=== PATIENT | female | born 1990 | race Caucasian/White ===

== ENCOUNTER 2017-04-30 12:12 | Emergency (ER) | payer BC, SELFPAY ==
[2017-04-30 12:41] VITALS: BP 139/93; PULSE 91; RESP 20; TEMP 36.1; O2SAT 97; BMI 36.6
--- NOTE | 2017-04-30 14:04 | HMH.EDUTC ---
[facility] [place]ression: Migraine Qualifiers: Migraine type: without aura Status migrainosus presence: without status migrainosus Intractability: not intractable Qualified Code(s): G43.009 - Migraine without aura, not intractable, without status migrainosus Disposition: Home, Self-Care Condition on Discharge: Good Instructions: DI for Migraine, Promethazine, Ketorolac Injection Additional Instructions: Flu test negative. You had the requested toradol and phenergan injections. Lots of water Rest like typical but if doesn't continue to improve like you report it typically does, be sure to follow up Follow up if not resolved, worsens or reoccurs or becomes not your typical migraine Referrals: Cindy Levy APRN [Primary Care Provider] - (As needed.) Time of Disposition: 14:27 Medical Decision Making Vital Signs: 04/30/17 12:41 04/30/17 14:33 Temperature 97.0 F L 97.0 F L Temperature Source Temporal Artery Scan Pulse Rate 85 Pulse Rate [Radial] 91 H Respiratory Rate 20 16 Blood Pressure 139/93 Blood Pressure [Left Arm] 139/93 Blood Pressure Mean [Left Arm] 108 Blood Pressure Source [Left Arm] Automatic Cuff Blood Pressure Position [Left Arm] Sitting 02 Sat by Pulse Oximetry 97 Oxygen Delivery Method Room Air - Lab Data Lab results reviewed: Yes: I reviewed the patient's lab results. Lab Results 04/30/17 14:06: Influenza Type A Ag Negative, Influenza Type B Ag Negative influenza A neg Influenza B neg Orders (Tests/Meds): ED MEDICATIONS Discontinued Medications Generic Name Dose Route Start Last Admin Trade Name Shadia PRN Reason Stop Dose Admin Ketorolac Tromethamine 60 mg 04/30/17 14:05 04/30/17 14:23 Toradol 60mg/2ml Vial IM 04/30/17 14:06 60 mg ONCE ONE Administration Promethazine HCl 25 mg 04/30/17 14:05 04/30/17 14:23 Phenergan 25mg/Ml 1ml Vial IM 04/30/17 14:06 25 mg ONCE ONE Administration Sodium Chloride 25 ml 04/30/17 14:05 04/30/17 14:24 Sod Chloride 0.9% 25ml Bag IV 04/30/17 14:06 Not Given ONCE ONE - Pito Inquiry Pt receiving controlled substance: No - Reevaluation(s) Time: 14:20 Reevaluation #1: Pt reports medications are starting to work . Already experiencing some relief. She is ready to go home and rest. Reports this typically helps and migraine fades. [facility] [place] - General Stated complaint: Migraine vomiting Time Seen by Provider: 04/30/17 13:50 Mode of Arrival: Ambulatory Source of Information: Patient Limitations: No Limitations Description of Symptoms (Recalled from Triage Doc. by RN): Pt C/O migraine since 399 today accompanied with N/V and light sensitivity HEENT Symptoms (Recalled from RN notes): Yes (ESCOBAR) Resp Symptoms (Recalled from RN notes): No Skin Symptoms (Recalled from RN notes): No MS Symptoms (Recalled from RN notes): No Functional Status (Recalled from RN notes): NA - History of Present Illness Provider Complaint: c/o a typical migraine starting at 4am. Here for toradol and promethazine injections. No new symptoms. 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 No treatment because vomiting too much. When this happens I get toradol and phenergan injection . hx of migraines treated with toradol, fioricet and promethazine when I can keep it down - Related Data Allergies Allergy/AdvReac Type Severity Reaction Status Date / Time oseltamivir [From TAMIFLU] Allergy Unknown NA-NAUSEA/V Verified 04/30/17 12:46 OMITING sumatriptan [From IMITREX] Allergy Unknown NA-HALLUCIN Verified 04/30/17 12:46 ATIONS - Worker's Comp Is this a Worker's Comp case?: No [facility] History I have reviewed the patient's past medical history: Yes Medical History: Reports:: Migraine Denies:: Diabetes Mellitus Type 2, Hypertension Laterality Cases: Bilateral: Tonsillectomy - *Social History Alcohol Intake: never - Psychiatric History Expresses thoughts of escobar
[2017-04-30 14:33] VITALS: BP 139/93; PULSE 85; RESP 16; TEMP 36.1; O2SAT 97
[2017-04-30 14:40] LABS: UTC Influenza A Antigen Negative (Negative); UTC Influenza B Antigen Negative (Negative)
[2017-05-03 20:37] LABS: UTC Influenza A Antigen Negative (Negative); UTC Influenza B Antigen Negative (Negative)
== END 2017-04-30 14:38 | disposition home or self-care (01) ==
PROVIDERS: Emergency Provider Nurse Practitioner Family; PCP Nurse Practitioner
DX: G43.009 Migraine without aura, not intractable, without status migrainosus (principal)
CPT/HCPCS: 87804; 96372; 99201

== ENCOUNTER → 2019-10-30 | Outpatient (CLI) | payer OTHER, SELFPAY ==
[2019-10-30 03:44] LABS: Coronavirus 19 IgG Antibody Negative (Negative); Coronavirus 19 IgM Antibody Negative (Negative)
== END ==
PROVIDERS: PCP Family Medicine; Visit Provider Family Medicine
DX: Z20.828 Contact with and (suspected) exposure to other viral communicable diseases (principal)
CPT/HCPCS: 86328

== ENCOUNTER → 2019-11-23 08:22 | Outpatient (CLI) | payer OTHER, SELFPAY ==
[2019-11-24 13:12] LABS: Covid-19 Nasal PCR Sendout Lex Not Detected
== END ==
PROVIDERS: PCP Family Medicine; Visit Provider Internal Medicine Adolescent Medicine
DX: Z03.818 Encounter for observation for suspected exposure to other biological agents ruled out (principal)
CPT/HCPCS: U0004

== ENCOUNTER → 2019-12-01 05:50 | Outpatient (CLI) | payer OTHER, SELFPAY ==
[2019-12-02 14:48] LABS: Covid-19 Nasal PCR Sendout Lex Not Detected
== END ==
PROVIDERS: PCP Family Medicine; Visit Provider Nurse Practitioner
DX: Z03.818 Encounter for observation for suspected exposure to other biological agents ruled out (principal)
CPT/HCPCS: U0004

== ENCOUNTER → 2020-02-01 13:37 | Outpatient (CLI) | payer OTHER, SELFPAY ==
--- NOTE | 2020-02-01 13:44 | MM_ITS ---
PROCEDURE: MM DIG MAMM BI DX W/CAD Digital Breast Tomosynthesis Included CLINICAL INDICATION: LUMP IN FEMALE BREAST There is a history of breast cancer in the patient's paternal grandmother and maternal grandmother and maternal aunt. There has been a previous biopsy right breast for benign disease. COMPARISON: MG BC-MAMM CLIP PLACEMENT OR VERIFI from 10/24/2014 MG BC-BREAST SPEC (NL/PATH) from 10/24/2014 outside film TECHNIQUE: Standard CC and MLO images and 3D Tomosynthesis was obtained. R2 CAD reviewed. FINDINGS: Scattered fibroglandular densities are seen in both breast. Slightly asymmetric glandular elements are seen upper outer quadrant right breast at the biopsy site. Preet images are most helpful appearing to confirm post biopsy scarring there is no new or suspicious lesion in either breast and no suspicious microcalcifications. IMPRESSION: Fibrofatty parenchyma with no suspicious lesions seen BI-RAD Category: 1 Negative FOLLOW-UP: 1YR 1 Year Follow-up (A letter has been sent to the patient regarding results of the study.) Dictated by: Dr. Jerman Delacruz MD 02/09/2020 08:48 Dr. Jerman Delacruz MD in [place] 02/09/2020 08:48
--- NOTE | 2020-02-01 13:44 | US_ITS ---
PROCEDURE: US THYROID CLINICAL INDICATION: HYPOTHYROIDISM COMPARISON: US THY US THYROID from 05/28/2016 FINDINGS: Right lobe: 2.3cm x 4.5cm x 1.8cm Left lobe: 2.0cm x 4.5cm x 1.5cm Isthmus: Thickened at 5 mm. Additional findings: There is bilateral heterogeneous echogenicity of the thyroid. A 9 mm hypoechoic nodules present in the upper pole on the left unchanged IMPRESSION: Overall no change in the mildly enlarged thyroid with heterogeneous echogenicity and a stable nodule in the left lobe Dictated by: Cory Bob MD 02/02/2020 08:11 Cory Bob MD in [place] 02/02/2020 08:11
== END ==
PROVIDERS: PCP Family Medicine; Visit Provider Nurse Practitioner
DX: N63.0 Unspecified lump in unspecified breast (principal); E03.9 Hypothyroidism, unspecified
CPT/HCPCS: 76536; 77062; 77066; G0279

== ENCOUNTER → 2020-02-14 00:19 | Outpatient (CLI) | payer OTHER, SELFPAY ==
[2020-02-14 01:41] LABS: Coronavirus 19 IgG Antibody Negative (Negative); Coronavirus 19 IgM Antibody Negative (Negative)
== END ==
PROVIDERS: PCP Family Medicine; Visit Provider Emergency Medicine
DX: Z03.818 Encounter for observation for suspected exposure to other biological agents ruled out (principal)
CPT/HCPCS: 86328

== ENCOUNTER 2020-05-10 19:51 | Outpatient (CLI) | payer BC, SELFPAY ==
[2020-05-10 20:01] VITALS: BMI 40.2
== END 2020-05-10 20:04 | disposition home or self-care (01) ==
PROVIDERS: PCP Family Medicine; Visit Provider Nurse Practitioner
DX: M54.5 Low back pain (principal)

== ENCOUNTER → 2020-06-08 20:00 | Outpatient (CLI) | payer BC, SELFPAY | PROVIDERS: PCP Nurse Practitioner Family; Visit Provider Nurse Practitioner Family | DX: N89.8 Other specified noninflammatory disorders of vagina (principal) ==

== ENCOUNTER 2020-06-25 14:07 | Outpatient (CLI) | payer BC, SELFPAY ==
[2020-06-25 14:35] VITALS: BMI 27.4
== END 2020-06-25 14:41 | disposition home or self-care (01) ==
LOC: INF 14:08 → UTC.OUT 14:09
PROVIDERS: PCP Emergency Medicine; Visit Provider Nurse Practitioner
DX: G43.909 Migraine, unspecified, not intractable, without status migrainosus (principal)
CPT/HCPCS: 96372

== ENCOUNTER 2020-07-05 14:25 | Outpatient (CLI) | payer BC, SELFPAY | END 2020-07-05 15:22 | disposition home or self-care (01) | PROVIDERS: PCP Emergency Medicine; Visit Provider Family Medicine | DX: F41.9 Anxiety disorder, unspecified (principal) | CPT/HCPCS: 96372 ==

== ENCOUNTER → 2020-07-16 19:06 | Outpatient (CLI) | payer OTHER, SELFPAY | PROVIDERS: PCP Emergency Medicine; Visit Provider Nurse Practitioner Family | DX: Z20.822 Contact with and (suspected) exposure to COVID-19 (principal) | CPT/HCPCS: U0003 ==

== ENCOUNTER → 2020-10-03 08:55 | Outpatient (CLI) | payer OTHER, SELFPAY ==
[2020-10-03 09:22] LABS: Adenovirus,PCR Not Detected (NotDetected); Bordetella Pertussis Not Detected (NotDetected); Chlamydophila Pneumoniae, PCR Not Detected (NotDetected); Coronavirus 19, PCR Not Detected (NotDetected); Coronavirus 229E Not Detected (NotDetected); Coronavirus NL63 Not Detected (NotDetected); Coronavirus OC43 Not Detected (NotDetected); Coronovirus HKU1,PCR Not Detected (NotDetected); Human Metapneumovirus Not Detected (NotDetected); Influenza A, PCR Not Detected (NotDetected); Influenza AH1, 2009 Not Detected (NotDetected); Influenza AH1, PCR Not Detected (NotDetected); Influenza AH3,PCR Not Detected (NotDetected); Influenza B, PCR Not Detected (NotDetected); Mycoplasma Pneumoniae, PCR Not Detected (NotDetected); Parainfluenza 1, PCR Not Detected (NotDetected); Parainfluenza 2, PCR Not Detected (NotDetected); Parainfluenza 3, PCR Not Detected (NotDetected); Parainfluenza 4, PCR Not Detected (NotDetected); Respiratory Syncytial Virus Not Detected (NotDetected); Rhinovirus/Enterovirus Not Detected (NotDetected)
== END ==
PROVIDERS: Visit Provider Nurse Practitioner Family
DX: Z11.52 Encounter for screening for COVID-19 (principal)
CPT/HCPCS: 87581; 87633; 87798

== ENCOUNTER → 2020-11-06 12:23 | Outpatient (CLI) | payer OTHER, SELFPAY ==
[2020-11-06 12:43] LABS: Adenovirus,PCR Not Detected (NotDetected); Bordetella Pertussis Not Detected (NotDetected); Chlamydophila Pneumoniae, PCR Not Detected (NotDetected); Coronavirus 19, PCR Not Detected (NotDetected); Coronavirus 229E Not Detected (NotDetected); Coronavirus NL63 Not Detected (NotDetected); Coronavirus OC43 Not Detected (NotDetected); Coronovirus HKU1,PCR Not Detected (NotDetected); Human Metapneumovirus Not Detected (NotDetected); Influenza A, PCR Not Detected (NotDetected); Influenza AH1, 2009 Not Detected (NotDetected); Influenza AH1, PCR Not Detected (NotDetected); Influenza AH3,PCR Not Detected (NotDetected); Influenza B, PCR Not Detected (NotDetected); Mycoplasma Pneumoniae, PCR Not Detected (NotDetected); Parainfluenza 1, PCR Not Detected (NotDetected); Parainfluenza 2, PCR Not Detected (NotDetected); Parainfluenza 3, PCR Not Detected (NotDetected); Parainfluenza 4, PCR Not Detected (NotDetected); Respiratory Syncytial Virus Not Detected (NotDetected); Rhinovirus/Enterovirus Not Detected (NotDetected)
== END ==
PROVIDERS: PCP Emergency Medicine; Visit Provider Nurse Practitioner
DX: Z20.822 Contact with and (suspected) exposure to COVID-19 (principal)
CPT/HCPCS: 87581; 87633; 87798

== ENCOUNTER → 2020-11-09 10:24 | Outpatient (CLI) | payer OTHER, SELFPAY ==
[2020-12-19 10:30] VITALS: BMI 39.3
== END ==
PROVIDERS: PCP Emergency Medicine; Visit Provider Nurse Practitioner Family
DX: S05.00XA Injury of conjunctiva and corneal abrasion without foreign body, unspecified eye, initial encounter (principal)

== ENCOUNTER → 2021-01-13 18:47 | Outpatient (CLI) | payer OTHER, SELFPAY ==
[2021-01-13 20:11] LABS: Basophils % 0.4 % (0.1-2.0); Eosinophils # 0.2 K/mm3 (0.0-0.4); Eosinophils % 2.3 % (0.1-12.0); Hematocrit 41.4 % (37.0-47.0); Lymphocytes # 2.9 K/mm3 (0.7-4.5); Lymphocytes % 33.5 % (10-50); Mean Corpuscular HGB Conc 31.3 g/dL (31.8-35.4); Mean Corpuscular Volume 86.2 fl (81-99); Mean Platelet Volume 8.6 fl (7.4-10.4); Monocytes # 0.6 K/mm3 (0.1-1.0); Monocytes % 6.6 % (1.7-9.3); Neutrophils % 57.2 % (37.0-80.0); Platelet Count 360 K/mm3 (142-424); Red Blood Count 4.81 M/mm3 (4.20-5.40); Red Cell Distribution Width 14.8 % (11.5-17.5); White Blood Count 8.7 K/mm3 (4.8-10.8)
[2021-01-13 20:33] LABS: Alanine Aminotransferase 31 U/L (12-78); Albumin Level 4.3 g/dl (3.5-5.0); Albumin/Globulin Ratio 1.4 (1.1-1.8); Alkaline Phosphatase 100 U/L (38-126); Anion Gap 13.5 mEq/L (5-15); Aspartate Amino Transferase 31 U/L (14-36); Bilirubin,Total 0.4 mg/dl (0.2-1.3); Blood Urea Nitrogen 13 mg/dl (7-17); Calcium 9.7 mg/dl (8.4-10.2); Carbon Dioxide 25 mmol/L (22.0-30.0); Chloride 103 mmol/L (98-107); Chol/HDL Ratio 4.9 (1-3.5); Cholesterol 258 mg/dl (140-200); Estimated Glomerular Filt Rate 74 ml/min (>60); GFR (African American) 90 ML/MIN (>60); Glucose 100 mg/dl (74-100); HDL Cholesterol 53 mg/dl (40-60); Potassium 4.5 mmoL/L (3.5-5.1); Sodium 137 mmol/L (136-145); Total Protein,Serum 7.3 g/dl (6.3-8.2); Triglycerides 267 mg/dl (30-150); VLDL Cholesterol 53 mg/dL (0-40)
[2021-01-13 20:43] LABS: Direct LDL Cholesterol 171.12 mg/dL (100-129)
[2021-01-13 20:49] LABS: 25-OH Vitamin D, Total 34.5 ng/mL (30-100)
[2021-01-13 20:51] LABS: T4 (Thyroxine) 10.1 ug/dl (5.53-11.0)
== END ==
PROVIDERS: Visit Provider Emergency Medicine
DX: G62.9 Polyneuropathy, unspecified (principal); E03.9 Hypothyroidism, unspecified; E66.9 Obesity, unspecified; Z68.38 Body mass index [BMI] 38.0-38.9, adult
CPT/HCPCS: 80053; 80061; 82306; 84436; 84443; 85025

== ENCOUNTER → 2021-01-19 12:58 | Outpatient (CLI) | payer OTHER, SELFPAY ==
[2021-01-19 13:20] LABS: Coronavirus 19, PCR Not Detected (NotDetected); Influenza A, PCR Not Detected (NotDetected); Influenza B, PCR Not Detected (NotDetected)
== END ==
PROVIDERS: PCP Emergency Medicine; Visit Provider Nurse Practitioner Family
DX: Z20.822 Contact with and (suspected) exposure to COVID-19 (principal)
CPT/HCPCS: C9803; U0003; U0005

== ENCOUNTER → 2021-02-01 16:02 | Outpatient (CLI) | payer OTHER, SELFPAY ==
[2021-02-01 16:21] VITALS: BMI 32.4
== END ==
PROVIDERS: PCP Emergency Medicine; Visit Provider Nurse Practitioner Family
DX: J06.9 Acute upper respiratory infection, unspecified (principal); R51.9 Headache, unspecified

== ENCOUNTER → 2021-02-06 10:26 | Outpatient (CLI) | payer OTHER, SELFPAY ==
[2021-02-06 14:07] LABS: Hemoglobin A1C 5.5 % (4.0-6.0)
== END ==
PROVIDERS: Visit Provider Nurse Practitioner Family
DX: Z79.899 Other long term (current) drug therapy (principal)
CPT/HCPCS: 83036

== ENCOUNTER 2021-02-13 09:16 | Emergency (ER) | payer OTHER, SELFPAY ==
[2021-02-13 09:20] VITALS: BP 125/78; PULSE 88; RESP 19; TEMP 36.9; O2SAT 98; BMI 39.3
[2021-02-13 09:52] LABS: UTC Pregnancy Test, Urine Negative (Negative)
[2021-02-13 09:52] LABS: UTC Strep Screen (Rapid) Negative (Negative)
--- NOTE | 2021-02-13 09:53 | HMH.EDUTC ---
[facility] [place] Clinical Impression: Migraine Qualifiers: Migraine type: unspecified Status migrainosus presence: without status migrainosus Intractability: not intractable Qualified Code(s): G43.909 - Migraine, unspecified, not intractable, without status migrainosus Diarrhea Qualifiers: Diarrhea type: unspecified type Qualified Code(s): R19.7 - Diarrhea, unspecified Disposition: Home, Self-Care Condition on Discharge: Good Instructions: Migraine -- Adult, Diarrhea, DI for Nausea -- Adult Additional Instructions: Drink extra fluids with and between meals. If you have difficulty drinking, try very small amounts of water or suck on ice chips. ? Avoid fruit juices, as these do not replace minerals and can actually increase diarrhea. ? Children and adults can use sports drinks to replenish electrolytes. Younger children and infants should use products formulated for children, like oral rehydration solutions. ? Eat food in small amounts and let your stomach recover. ? Get lots of rest. You may feel tired or weak. ? No greasy or fried foods for the next 24-48 hours BRAT diet Bananas Rice Apples and [place] ? Make sure to drink plenty of liquids ? Return if needed ? Straight to ER if any life threatening symptoms ? Nausea medication as you was prescribed ?? Follow up with family doctor in the next 48-72 hours if no improvement or any worsening of symptoms Referrals: Corby Astudillo MD [Primary Care Provider] - As needed Time of Disposition: 11:25 Medical Decision Making - Pito Inquiry Pt receiving controlled substance: No Pito was queried for this patient: No Vital Signs: 02/13/21 09:20 02/13/21 11:28 Temperature 98.5 F 98.5 F Temperature Source Oral Pulse Rate 88 Pulse Rate [Right Brachial] 88 Respiratory Rate 19 19 Blood Pressure 125/78 Blood Pressure [Right Arm] 125/78 Blood Pressure Mean [Right Arm] 93 Blood Pressure Source [Right Arm] Automatic Cuff Blood Pressure Position [Right Arm] Sitting 02 Sat by Pulse Oximetry 98 Oxygen Delivery Method Room Air - Lab Data Lab results reviewed: Yes: I reviewed the patient's lab results. Lab Results 02/13/21 09:36: [facility]st Clinic Negative 02/13/21 09:37: SARS-CoV-2 (PCR) Not detected, Influenza A Untype (PCR) Not detected, Influenza Type B (PCR) Not detected 02/13/21 09:45: Strep Scn Rapid Clinic Negative Orders (Tests/Meds): ED MEDICATIONS Discontinued Medications Generic Name Dose Route Start Last Admin Trade Name Shadia PRN Reason Stop Dose Admin Sodium Chloride 1,000 mls @ 999 mls/hr 02/13/21 10:15 02/13/21 10:16 Sod Chlor 0.9% 1000ml Bag IV 02/13/21 11:15 999 mls/hr .Q1H1M LESLIE Administration Ketorolac Tromethamine 30 mg 02/13/21 09:58 02/13/21 10:15 Ketorolac 30mg/Ml Vial IV 02/13/21 09:59 30 mg ONCE ONE Administration Promethazine HCl 12.5 mg 02/13/21 09:58 02/13/21 10:15 Promethazine Hcl 25mg/Ml 1ml Vial IV 02/13/21 09:59 12.5 mg ONCE ONE Administration Sodium Chloride 25 ml 02/13/21 09:58 02/13/21 10:16 Sodium Chloride 0.9% 25ml Bag IV 02/13/21 09:59 25 ml ONCE ONE Administration ORDERS Category Date Time Status Strep Screen Confirmation Stat Micro 02/13/21 09:45 Received Medical Decision Narrative: Patient states that migraine is now gone after medication and nausea now improved no vomiting or diarrhea since arrival patient report feels much better after fluids will dc patient home [facility] [place] - General Stated complaint: vomiting, headache Time Seen by Provider: 02/13/21 09:53 Mode of Arrival: Ambulatory Source of Information: Patient Limitations: No Limitations Description of Symptoms (Recalled from Triage Doc. by RN): PATIENT C/O MIGRAINE, NAUSEA, VOMITING, DIARRHEA, AND SINUS DRAINAGE/CONGESTION HEENT Symptoms (Recalled from RN notes): Yes Resp Symptoms (Recalled from RN notes): No Skin Symptoms (Recalled from RN notes): No MS Symptoms (Recalled from RN notes
[2021-02-13 09:57] LABS: Coronavirus 19, PCR Not Detected (NotDetected); Influenza A, PCR Not Detected (NotDetected); Influenza B, PCR Not Detected (NotDetected)
[2021-02-13 11:28] VITALS: BP 125/78; PULSE 88; RESP 19; TEMP 36.9; O2SAT 98
== END 2021-02-13 11:31 | disposition home or self-care (01) ==
PROVIDERS: Emergency Provider Nurse Practitioner; PCP Emergency Medicine
DX: G43.909 Migraine, unspecified, not intractable, without status migrainosus (principal); F41.8 Other specified anxiety disorders; Z87.891 Personal history of nicotine dependence
CPT/HCPCS: 81025; 87880; 96365; 96375; 99203; C9803; G0463; U0003; U0005

== ENCOUNTER → 2021-02-19 22:14 | Outpatient (CLI) | payer OTHER, SELFPAY ==
[2021-02-19 22:18] VITALS: BMI 39.3
== END ==
PROVIDERS: PCP Emergency Medicine; Visit Provider Nurse Practitioner Family
DX: J02.9 Acute pharyngitis, unspecified (principal)
CPT/HCPCS: J0561

== ENCOUNTER → 2021-03-11 23:59 | Outpatient (CLI) | payer OTHER, SELFPAY ==
[2021-03-12] LABS: Coronavirus 19, PCR Not Detected (NotDetected); Influenza A, PCR Not Detected (NotDetected); Influenza B, PCR Not Detected (NotDetected)
== END ==
PROVIDERS: Visit Provider Nurse Practitioner Family
DX: Z20.822 Contact with and (suspected) exposure to COVID-19 (principal)
CPT/HCPCS: C9803; U0003; U0005

== ENCOUNTER → 2021-03-29 09:15 | Outpatient (CLI) | payer OTHER, SELFPAY ==
[2021-03-29 09:21] VITALS: BMI 30.2
== END ==
PROVIDERS: PCP Emergency Medicine; Visit Provider Nurse Practitioner Family
DX: R51.9 Headache, unspecified (principal)

== ENCOUNTER → 2021-04-14 14:21 | Outpatient (CLI) | payer OTHER, SELFPAY ==
[2021-04-14 14:41] LABS: Adenovirus,PCR Not Detected (NotDetected); Coronavirus 229E Not Detected (NotDetected); Coronavirus NL63 Not Detected (NotDetected); Coronavirus OC43 Not Detected (NotDetected); Coronovirus HKU1,PCR Not Detected (NotDetected); Human Metapneumovirus Not Detected (NotDetected); Influenza A, PCR Not Detected (NotDetected); Influenza AH1, PCR Not Detected (NotDetected); Rhinovirus/Enterovirus Not Detected (NotDetected)
[2021-04-14 14:42] LABS: Bordetella Pertussis Not Detected (NotDetected); Chlamydophila Pneumoniae, PCR Not Detected (NotDetected); Coronavirus 19, PCR Not Detected (NotDetected); Influenza AH1, 2009 Not Detected (NotDetected); Influenza AH3,PCR Not Detected (NotDetected); Influenza B, PCR Not Detected (NotDetected); Mycoplasma Pneumoniae, PCR Not Detected (NotDetected); Parainfluenza 1, PCR Not Detected (NotDetected); Parainfluenza 2, PCR Not Detected (NotDetected); Parainfluenza 3, PCR Not Detected (NotDetected); Parainfluenza 4, PCR Not Detected (NotDetected); Respiratory Syncytial Virus Not Detected (NotDetected)
== END ==
PROVIDERS: PCP Emergency Medicine; Visit Provider Nurse Practitioner
DX: Z20.822 Contact with and (suspected) exposure to COVID-19 (principal)
CPT/HCPCS: 87581; 87632; 87798; C9803; U0003; U0005

== ENCOUNTER 2021-04-20 20:30 | Outpatient (CLI) | payer OTHER, SELFPAY | END 2021-04-20 20:45 | disposition home or self-care (01) | PROVIDERS: PCP Emergency Medicine; Visit Provider Nurse Practitioner | DX: J06.9 Acute upper respiratory infection, unspecified (principal) | CPT/HCPCS: 96372 ==

== ENCOUNTER → 2021-07-01 12:48 | Outpatient (CLI) | payer OTHER, SELFPAY | PROVIDERS: PCP Emergency Medicine; Visit Provider Nurse Practitioner Family | DX: J32.9 Chronic sinusitis, unspecified (principal) | CPT/HCPCS: J0696 ==

== ENCOUNTER → 2021-07-14 09:36 | Outpatient (CLI) | payer OTHER, SELFPAY ==
[2021-07-14 11:38] VITALS: BMI 31.8
== END ==
PROVIDERS: PCP Physician Assistant; Visit Provider Nurse Practitioner Family
DX: G62.9 Polyneuropathy, unspecified (principal)
CPT/HCPCS: J0696

== ENCOUNTER → 2021-07-18 18:43 | Outpatient (CLI) | payer OTHER, SELFPAY ==
--- NOTE | 2021-07-18 19:09 | XR_ITS ---
PROCEDURE INFORMATION: Exam: XR Left Elbow Exam date and time: 07/18/2021 7:02 PM Age: 30 years old Clinical indication: Pain; Elbow; Left; Additional info: Pain, bruising, tingling after a fall TECHNIQUE: Imaging protocol: XR Left elbow. Views: 3 or more views. COMPARISON: CR WRL3 WRIST-3 VIEWS-LT 06/04/2016 12:37 PM FINDINGS: Bones/joints: Normal. Soft tissues: Normal. IMPRESSION: No acute findings.
== END ==
PROVIDERS: PCP Emergency Medicine; Visit Provider Nurse Practitioner
DX: M25.522 Pain in left elbow (principal)
CPT/HCPCS: 73080

== ENCOUNTER → 2021-07-20 18:40 | Outpatient (CLI) | payer OTHER, SELFPAY ==
[2021-07-20 19:26] VITALS: BMI 37.5
== END ==
PROVIDERS: PCP Emergency Medicine; Visit Provider Nurse Practitioner Family
DX: J06.9 Acute upper respiratory infection, unspecified (principal)
CPT/HCPCS: J2405

== ENCOUNTER → 2021-11-12 13:24 | Outpatient (CLI) | payer BC, SELFPAY | PROVIDERS: PCP Physician Assistant; Visit Provider Physician Assistant | DX: N76.0 Acute vaginitis (principal); B96.89 Other specified bacterial agents as the cause of diseases classified elsewhere | CPT/HCPCS: 87086; 87088; 87186; 87210 ==

== ENCOUNTER 2022-06-04 10:17 | Observation (INO) | payer OTHER, SELFPAY ==
[2022-06-04] VITALS (31 sets, daily range): BP systolic 98–142; BP diastolic 48–90; PULSE 63–120; RESP 16–24; TEMP 36.4–43; O2SAT 93–98; BMI 43.0
--- NOTE | 2022-06-04 10:42 | CT_ITS ---
FINAL REPORT TECHNIQUE: After the administration of intravenous contrast, axial images were obtained through the abdomen and pelvis by computed tomography. This study was performed with technique to keep radiation doses as low as reasonably achievable, (ALARA). Individualized dose reduction techniques using automated exposure control or adjustment of the MA and/or KV according to the patient's size were employed. CLINICAL HISTORY: left lower abdominal pain COMPARISON: 07/13/2017 FINDINGS: Abdomen: The lung bases are clear. The liver is normal in size and attenuation. Two small cysts or hemangiomas are seen in the spleen which is otherwise unremarkable. The adrenals are normal. The pancreas is unremarkable. The kidneys enhance appropriately. The aorta is normal in caliber. There is no free fluid or adenopathy. There is a small umbilical hernia containing fat. Pelvis: The appendix is normal. There is a 9 cm left ovarian dermoid which previously measured 4.7 cm. Small follicles are noted in the right ovary. There is a small amount of pelvic free fluid which is likely physiologic or reactive. The urinary bladder is unremarkable. There is no adenopathy. IMPRESSION: 9 cm left ovarian dermoid, previously measured 4.7 cm. Small amount of pelvic free fluid, likely physiologic or reactive. Reviewed, Interpreted and Dictated by Jose Hernandez III, MD Transcribed by Chela Barr Authenticated and [facility]
[2022-06-04 10:46] LABS: Microscopic, Urine URINE MICROSCOPIC (MICROSCOPIC)
[2022-06-04 10:49] LABS: Urine Pregnancy, HCG Qual. Negative (Negative)
--- NOTE | 2022-06-04 10:49 | PC.NURSE ---
ER at bedside
[2022-06-04 10:50] LABS: Basophils # 0.1 K/mm3 (0-0.2); Basophils % 0.6 % (0.1-2.0); Eosinophils # 0.1 K/mm3 (0.0-0.4); Eosinophils % 0.6 % (0.1-12.0); Hematocrit 39.5 % (37.0-47.0); Hemoglobin 13.2 g/dL (12.2-16.2); Lymphocytes # 3.5 K/mm3 (0.7-4.5); Lymphocytes % 27.6 % (10-50); Mean Corpuscular HGB Conc 33.4 g/dL (31.8-35.4); Mean Corpuscular Hemoglobin 27.1 pg (27.0-31.2); Mean Corpuscular Volume 81.3 fl (81-99); Mean Platelet Volume 8.4 fl (7.4-10.4); Monocytes # 0.8 K/mm3 (0.1-1.0); Monocytes % 6.3 % (1.7-9.3); Neutrophils # 8.3 K/mm3 (1.8-7.8); Platelet Count 303 K/mm3 (142-424); Red Blood Count 4.86 M/mm3 (4.20-5.40); Red Cell Distribution Width 14.6 % (11.5-17.5); White Blood Count 12.7 K/mm3 (4.8-10.8)
[2022-06-04 10:50] LABS: Appearance,Urine CLEAR (Clear); Blood, Urine Negative (Negative); Color,Urine YELLOW (Yellow); Glucose,Urine (UA) Negative (Negative); Ketones,Urine Negative (Negative); Leukocyte Esterase,Urine Negative (Negative); Nitrate,Urine Negative (Negative); Protein,Urine TRACE (Negative); Specific Gravity, Urine >= 1.030 (1.005-1.030); Urobilinogen,Urine 0.2 EU/dl (0.2)
--- NOTE | 2022-06-04 10:53 | HMH.EDGENADL ---
Discharge Plan Disposition Patient Disposition: Admitted As Inpatient Condition: Fair Chief Complaint: Abdominal Pain Prescriptions Prescriptions: No Action levothyroxine 100 mcg tablet See Rx Instructions .ROUTE .COMPLEX Qty: 90 3RF Dose Instruction: TAKE ONE TABLET BY MOUTH DAILY FOR thyroid Rx Instructions: TAKE ONE TABLET BY MOUTH DAILY FOR thyroid montelukast 10 mg tablet See Rx Instructions .ROUTE .COMPLEX Qty: 90 3RF Dose Instruction: TAKE ONE TABLET BY MOUTH EVERY DAY IN THE EVENING Rx Instructions: TAKE ONE TABLET BY MOUTH EVERY DAY IN THE EVENING omeprazole 40 mg capsule,delayed release(DR/EC) 40 mg PO DAILY 90 Days Qty: 90 3RF gabapentin 100 mg capsule 200 mg PO TID 30 Days Qty: 180 0RF ondansetron 4 mg tablet,disintegrating 4 mg PO Q8HP PRN (Reason: Nausea) Qty: 30 2RF dextroamphetamine-amphetamine [Adderall XR] 15 mg capsule,extended release 24hr 15 mg PO DAILY Qty: 30 0RF bupropion HCl [Wellbutrin XL] 300 mg tablet extended release 24 hr 300 mg PO DAILY Qty: 90 0RF bupropion HCl [Wellbutrin XL] 150 mg tablet extended release 24 hr 150 mg PO DAILY Qty: 90 0RF Rx Instructions: take daily with 300mg tablet; dose is 450mg daily buspirone 10 mg tablet 20 mg PO TID Qty: 120 2RF lorazepam [Ativan] 1 mg tablet 1 mg PO TID PRN (Reason: anxiety) Qty: 90 0RF trazodone 100 mg tablet 200 mg PO HS Qty: 180 2RF cuocigndac-phafmlujqjdgn-gixx 50-325-40 mg tablet 1 tab PO BID PRN (Reason: Migraine Headache) Qty: 20 0RF Ozempic 0.25 mg or 0.5 mg(2 mg/1.5 mL) pen injector 0.25 mg SQ WEEKLY Qty: 1.5 2RF Rx Instructions: for 4 doses, then increase to 0.5 mg weekly X 1 month, then call for new RX 1 mg lamotrigine 200 mg tablet See Rx Instructions .ROUTE .COMPLEX Qty: 90 1RF Dose Instruction: TAKE ONE TABLET BY MOUTH TWICE DAILY FOR bipolar Rx Instructions: TAKE ONE TABLET BY MOUTH TWICE DAILY FOR bipolar albuterol sulfate 8.5 GM HFA aerosol inhaler 2 puffs inhalation Q6HP PRN (Reason: Shortness Of Breath) 30 Days Qty: 1 5RF Referrals Follow up/Referrals: Corby Astudillo MD [Primary Care Provider] - See instructions Clinical Impressions Clinical Impression: Cyst, ovary, dermoid Discharge ED Provider: Santiago Yin General Adult HPI General Chief complaint: Abdominal Pain Stated complaint: Lt side abd pain, cough Time Seen by Provider: 06/04/22 10:47 Mode of Arrival: Ambulatory Source of Information: Patient Limitations: No Limitations Description of Symptoms (Recalled from ER Triage Doc. by RN): pt comes in with c/o left lower abdominal pain, that began this time yesterday. pt still has appendix and gallbladder, pt reports associated nausea. 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 She locates the pain in the left lower quadrant radiating up to the left upper quadrant and into her left flank. She has nausea, but no vomiting or diarrhea. Denies fever. Denies urinary symptoms. She has a mild cough. She says that she had a positive home COVID test 2 days ago. She has had prior laparoscopy for endometriosis. Related Data Previous Rx's Medication Instructions Recorded albuterol sulfate 90 mcg/actuation 2 puffs inhalation Q6HP PRN 07/14/21 aerosol inhaler Shortness Of Breath 30 days #1 ea gabapentin 100 mg capsule 200 mg PO TID 30 days #180 caps 04/20/22 levothyroxine 100 mcg tablet See Rx Instructions .Route 04/20/22 .COMPLEX #90 tabs montelukast 10 mg tablet See Rx Instructions .Route 04/20/22 .COMPLEX #90 tabs omeprazole 40 mg capsule,delayed 40 mg PO DAILY stomach 90 days #90 04/20/22 release caps ondansetron 4 mg disintegrating 4 mg PO Q8HP PRN Nausea #30 tabs 04/20/22 tablet kslogzeeif-cckirmidkekxp-lssfnzll 1 tab PO B
[2022-06-04 10:59] LABS: Bilirubin,Urine Negative (Negative)
[2022-06-04 11:05] LABS: Chloride 105 mmol/L (98-107); Potassium 3.9 mmoL/L (3.5-5.1); Sodium 139 mmol/L (136-145)
[2022-06-04 11:05] LABS: Bacteria,Urine Trace /lpf
[2022-06-04 11:07] LABS: Amylase 60 U/L (30-110); Blood Urea Nitrogen 14 mg/dl (7-17); Creatinine Clearance Estimated 59 mL/min (50-200); Estimated Glomerular Filt Rate 65 ml/min (>60); GFR (African American) 79 ML/MIN (>60)
[2022-06-04 11:08] LABS: Influenza A, PCR Not Detected (NotDetected); Influenza B, PCR Not Detected (NotDetected)
[2022-06-04 11:08] LABS: Alanine Aminotransferase 50 U/L (12-78); Albumin Level 4.5 g/dl (3.5-5.0); Albumin/Globulin Ratio 1.6 (1.1-1.8); Alkaline Phosphatase 92 U/L (38-126); Anion Gap 13.9 mEq/L (5-15); Aspartate Amino Transferase 31 U/L (14-36); Bilirubin,Total 0.4 mg/dl (0.2-1.3); Calcium 8.9 mg/dl (8.4-10.2); Carbon Dioxide 24 mmol/L (22.0-30.0); Globulin 2.9 g/dL (1.3-3.2); Glucose 96 mg/dl (74-100); Total Protein,Serum 7.4 g/dl (6.3-8.2)
--- NOTE | 2022-06-04 11:18 | PC.NURSE ---
pt going to radiology
--- NOTE | 2022-06-04 11:19 | PC.NURSE ---
pt to CT at this time via wheelchair
--- NOTE | 2022-06-04 11:20 | PC.NURSE ---
pt c/o pain, MD aware pt going to scan
--- NOTE | 2022-06-04 11:26 | PC.NURSE ---
pt back to room
[2022-06-04 11:33] LABS: Coronavirus 19, PCR Detected (NotDetected)
--- NOTE | 2022-06-04 12:06 | US_ITS ---
FINAL REPORT CLINICAL HISTORY: dermoid cyst L ovary, L sided pain, r/o torsion COMPARISON: CT performed earlier today FINDINGS: Transvaginal sonographic images of the pelvis were obtained. The uterus measures 8.4 x 4.0 by 6.0 cm. The endometrium measures 10 mm, which is within normal limits. No uterine mass is identified. The right ovary measures 4 cm in length and left ovary measures 10 cm in length. There is a 10 cm left ovarian mass consistent with dermoid, seen on CT performed earlier today. Some blood flow is noted in the periphery of the left ovary. There is no convincing evidence of torsion. There is no free fluid. IMPRESSION: 10 cm left ovarian dermoid. No evidence of torsion. Reviewed, Interpreted and Dictated by Jose Hernandez III, MD Transcribed by Chela Barr Authenticated and [facility]
--- NOTE | 2022-06-04 12:09 | PC.NURSE ---
Notified radiology of US order
--- NOTE | 2022-06-04 12:13 | PC.NURSE ---
spoke with RAD for prelim on CT, customer security clerk stated they are working on it .
--- NOTE | 2022-06-04 12:27 | PC.NURSE ---
patient to US via WC
--- NOTE | 2022-06-04 13:01 | PC.NURSE ---
Pt from US via WC; SO at BS
--- NOTE | 2022-06-04 13:21 | PC.NURSE ---
Contacting Dr. Corona's office for [facility] at this time
--- NOTE | 2022-06-04 13:23 | PC.NURSE ---
[facility] speaking with Dr. Corona
--- NOTE | 2022-06-04 13:32 | PC.NURSE ---
updated pt on POC
--- NOTE | 2022-06-04 14:03 | PC.NURSE ---
DR LOWRY AT BEDSIDE
--- NOTE | 2022-06-04 14:03 | PC.NURSE ---
Dr. Corona at BS
--- NOTE | 2022-06-04 14:24 | PC.NURSE ---
Care mgn aware of admission
--- NOTE | 2022-06-04 14:29 | EXP.HP ---
History of Present Illness *Admission Date: 06/04/22 *Reason for visit:: abdominal/pelvic pain *History of present illness: 31 yo She presented to the ED today with complaint of worsening abdominal/pelvic pain over the past 30 hours Pain most prominent in LLQ + nausea/vomiting denies fever/chills CT showed large left adnexal mass, c/w dermoid cyst Pelvic ultrasound confirmed 10cm left adnexal mass, but could not determine if torsion was present: transvaginal sonographic images of the pelvis were obtained. The uterus measures 8.4 x 4.0 by 6.0 cm. The endometrium measures 10 mm, which is within normal limits. No uterine mass is identified. The right ovary measures 4 cm in length and left ovary measures 10 cm in length.? There is a 10 cm left ovarian mass consistent with dermoid, seen on CT performed earlier today.? Some blood flow is noted in the periphery of the left ovary.? Previous CT in 2018 showed 5cm left dermoid cyst, but she was not aware of this lesion Covid 19 positive test, but asymptomatic PFSH PFSH Disclaimer: The information contained in this section may have been updated after the patient was seen, as this information can be updated by other users. Medical History Anxiety and depression Generalized anxiety disorder Recurrent major depression resistant to treatment Social History Smoking Status: Never smoker alcohol intake: former substance use type: denies use current occupational status: employed Travel in the last 8 weeks: None number of children: 1 Review of Systems Review of Systems Review of systems:: pertinent systems reviewed and negative unless documented below Constitutional Constitutional: Denies chills and Denies fever(s) *Cardiovascular Cardiovascular: Denies dyspnea *Respiratory Respiratory: Denies cough and Denies dyspnea *Gastrointestinal Gastrointestinal: Reports abdominal pain, Reports nausea and Reports vomiting *Genitourinary Genitourinary: Reports pelvic pain Meds Home Medications and Allergies Home Medications Medication Instructions Recorded Confirmed Type albuterol sulfate 90 mcg/actuation 2 puffs inhalation Q6HP PRN 07/14/21 05/19/22 Rx aerosol inhaler Shortness Of Breath 30 days #1 ea gabapentin 100 mg capsule 200 mg PO TID 30 days #180 caps 04/20/22 05/19/22 Rx levothyroxine 100 mcg tablet See Rx Instructions .Route 04/20/22 05/19/22 Rx .COMPLEX #90 tabs montelukast 10 mg tablet See Rx Instructions .Route 04/20/22 05/19/22 Rx .COMPLEX #90 tabs omeprazole 40 mg capsule,delayed 40 mg PO DAILY stomach 90 days #90 04/20/22 05/19/22 Rx release caps ondansetron 4 mg disintegrating 4 mg PO Q8HP PRN Nausea #30 tabs 04/20/22 05/19/22 Rx tablet qvxgpfpnzj-abznrurxlzlqa-ppguzpme 1 tab PO BID PRN Migraine Headache 04/21/22 05/19/22 Rx 50 mg-325 mg-40 mg tablet #20 tabs semaglutide 0.25 mg or 0.5 mg (2 0.25 mg (0.2 mL) SQ WEEKLY #1.5 mL 04/23/22 05/19/22 Rx mg/1.5 mL) subcutaneous pen injector (Ozempic) lamotrigine 200 mg tablet See Rx Instructions .Route 05/06/22 05/19/22 Rx .COMPLEX #90 tabs bupropion HCl 150 mg 24 hr tablet, 150 mg PO DAILY #90 tabs 05/19/22 05/19/22 Rx extended release (Wellbutrin XL) bupropion HCl 300 mg 24 hr tablet, 300 mg PO DAILY #90 tabs 05/19/22 05/19/22 Rx extended release (Wellbutrin XL) buspirone 10 mg tablet 20 mg PO TID Anxiety #120 tabs 05/19/22 05/19/22 Rx dextroamphetamine-amphetamine ER 15 mg PO DAILY #30 caps 05/19/22 05/19/22 Rx 15 mg 24hr capsule,extend release (Adderall XR) lorazepam 1 mg tablet (Ativan) 1 mg PO TID PRN anxiety #90 tabs 05/19/22 05/19/22 Rx trazodone 100 mg tablet 200 mg PO HS #180 tabs 05/19/22 05/19/22 Rx New Prescriptions to Start Prescriptions: Allergies Allergy/AdvReac Type Severity Reaction Status Date / Time oseltamivir [From TAMIFLU] Allergy Unknown
--- NOTE | 2022-06-04 15:06 | EXP.ANES.CKL ---
[facility] Disclaimer: The information contained in this section may have been updated after the patient was seen, as this information can be updated by other users. Medical History Anxiety and depression Generalized anxiety disorder Recurrent major depression resistant to treatment Social History Smoking Status: Never smoker alcohol intake: former substance use type: denies use current occupational status: employed Travel in the last 8 weeks: None number of children: 1 [facility] Anesthesia Checklist Patient Identification Patient Identification: Verbal (Name & ) Structural Data Admitted From: Home Planned Operative Procedure/s: exp laparotomy Consent for Planned Operative Procedure(s) Verified: Yes Airway Assessment C-Spine Mobility Assessed: Yes TMJ Mobility Assessed: Yes Dentition: Good Dentition Neurological Assessment Level of Consciousness: Awake, Alert and Appropriate Anesthesia Plan Anesthesia Risk discussed: Yes Anesthesia Plan: Verified ASA Class: II Anesthesia Type: General
--- NOTE | 2022-06-04 15:55 | SUR.OPER ---
1554- updated by Marlene Castro RN about patient's current status.
--- NOTE | 2022-06-04 16:20 | P.PNANES_ITS ---
[facility] Anesthesia Record Part I Anesthesia Record I Intake, IV Amount: 1,500 Estimated blood loss (mL): 100 Urine output (mL): 150 Blood Pressure: 140/90 SaO2: 94 Pulse Rate: 120 Respiratory Rate: 16 Temperature: 97.5 F Patient is:: Awake and Stable Stable to PACU at:: 16:20
--- NOTE | 2022-06-04 16:48 | SUR.OPER ---
1647- Daniel Ness CRNA called by Marlene Castro RN about patient's current status. Patient is very anxious and states that she takes PRN ativan at home. MADDISON Camp ordered FRANCINE Disla to give 2mg Versed IV push once.
--- NOTE | 2022-06-04 17:24 | SUR.PHASEI ---
1711- Detailed report called to FRANCINE Castrejon by FRANCINE Disla. 1713- Patient transported to room 279 in stable condition and left in the care of FRANCINE Castrejon. VSS. at bedside.
--- NOTE | 2022-06-04 17:30 | EXP.OP.NOTE ---
Date of procedure: 06/04/22 Pre-op Diagnosis:: 1. Left adnexal mass, consistent with dermoid 2. Ovarian torsion Post-op Diagnosis:: Left dermoid cyst, no torsion present Procedure performed:: Exploratory laparotomy, left oophorectomy Surgeon:: Vijaay Corona MD Laboratory Chemical Assistant(s):: Cal Meng MD BPO SPECIALIST:: Daniel Thi Anesthesia: GETA Estimated blood loss (mL): 100 Operative findings:: 13cm mass left ovary, internal cnotents fat and hair Operative note:: The patient was taken to the operating room and general anesthesia was administered without difficulty. She was prepped and draped in the supine position. A midline skin incision was made from 2 cm above the pubic symphysis upwards to the inferior umbilicus with a scalpel and carried down to the underlying layer of fascia. The fascia was incised in the midline and extended inferiorly and superiorly sharply. The rectus muscles were sharply dissected off the fascia and in the midline. The peritoneum was turned and sharply, with good visualization of the underlying structures. The peritoneal incision was extended bluntly. A survey of the patient's pelvis and abdomen revealed a large left ovarian mass, approximately 13cm. The uterus and right ovary appeared normal. At this time, the patient was placed in Trendelenburg and an O'Navi - O'Luz retractor was placed in the abdomen; the bowel was packed with moist laparotomy sponges. The left ovary was clamped with 2 Jayesh clamps and suture ligated x 2 with 0-vicryl. Surgical clips were placed over a bleeding vessel within the IP ligament, with excellent hemostasis. The right ovary was inspected, with normal appearance. The pelvis was copiously irrigated with a solution of sterile water. The cuff was hemostatic. All pedicles were reexamined and remained hemostatic. All instruments were removed from the patient's abdomen. The peritoneum was closed with 2-0 Vicryl in a running fashion. The fascia was closed with #1 Vicryl in a running fashion. The subcutaneous fat was closed with 2-0 vicryl in interrupted fashion. The skin was closed with lelo. The patient tolerated the procedure well; sponge/lap/needle and instrument counts were correct ?2. She was taken to the recovery room awake in stable condition. Estimated blood loss: 100 cc. Condition: stable Disposition: PACU Specimens:: Left ovary and dermoid cyst Complications:: None
[2022-06-04 17:46] LABS: Microscopic,Cath URINE MICROSCOPIC (MICROSCOPIC)
[2022-06-04 18:34] LABS: Appearance,Urine/Cath CLEAR (Clear); Bilirubin,Cath Negative (Negative); Blood, Urine/Cath Negative (Negative); Color,Urine/Cath YELLOW (Yellow); Glucose,Urine/Cath (UA) Negative (Negative); Ketones,Urine/Cath Negative (Negative); Leukocyte Esterase,Cath Negative (Negative); Nitrate,Cath Negative (Negative); PH,Urine/Cath 5.5 (5.0-8.5); Protein,Urine/Cath Negative (Negative); Urobilinogen,Cath 0.2 EU/dl (0.2)
[2022-06-05] VITALS (12 sets, daily range): BP systolic 103–127; BP diastolic 51–89; PULSE 63–95; RESP 16–18; TEMP 36.4–36.9; O2SAT 94–100
--- NOTE | 2022-06-05 03:47 | PC.NURSE ---
A&OX4. PT HAS BEEN ON 2LNC MAJORITY OF SHIFT, TAKEN OFF TO RA AT 0345. O2 SAT 98% AT THIS TIME. PT HAS HAD INTERMITTENT PAIN T/O SHIFT. REQUIRING PRN PAIN MEDICATION AROUND THE CLOCK. INCISION PRESENT TO LOWER ABD. INCISION CLEANED AND NEW DRESSING APPLIED THIS SHIFT. INCISION/ARNULFO CDI. MODERATE SEROSANG DRAINAGE PRESENT UPON DRESSING CHANGE. PT TOLERATED WELL. PT HAS REQUESTED SCDS TO BE REMOVED AT THS TIME. F/C IN PLACE DRAINING LIGHT YELLOW URINE. PT MOVING HERSELF WELL IN BED. BOWEL SOUNDS ACTIVE UPON AUSCULTATION. PT DOES HAVE COUGH, INSTRUCTED ON USING PILLOW ON STOMACH WHEN COUGHING. PT HAS TOLERATED CLEARS WELL. PT DID ORDER YAMATO, UNDERSTANDS THE RISK OF NA/VO. PT TOLERATED THIS WELL, DID NOT EAT MUCH. PT HAS RESTED INTERMITTENTLY THIS SHIFT. VERY TEARFUL AT TIMES. FRESH ICE WATER PROVIDED, WARM BLANKET, AND TRASH EMPTIED. NO OTHER NEEDS OR C/O AT THIS TIME. VSS.
[2022-06-05 06:24] LABS: Hematocrit 34.3 % (37.0-47.0)
--- NOTE | 2022-06-05 09:22 | PC.NURSE ---
Pt very tearful and upset this morning. We discussed her home medications and have consulted pharmacy and Dr Corona to verify and re order meds as requested. I also discussed safety and contraindications of home medications with ordered prn medications. Pt verbalized understanding. Reassured pt and offered other non medication options for pain relief.
--- NOTE | 2022-06-05 10:07 | PC.NURSE ---
Per Dr Corona: verify with pharmacy ok to restart ativan prn. Spoke with Evelio in pharmacy who states ok to restart ativan prn. Use cautiously with other prn medications. R/V. Reordered TID PRN per Dr Corona's orders.
--- NOTE | 2022-06-05 10:32 | HMH.PHAINT1 ---
Pharmacy Intervention Comments: home medication list verified using list from outpatient pharmacy
--- NOTE | 2022-06-05 11:36 | SW/DCPLANNER ---
I received a referral for this patient regarding:PCS4. I have provided this patient with a resource list: no further needs/questions at this time. I have requested that OB staff follow up with me if patient has any needs/questions.
--- NOTE | 2022-06-05 13:38 | EXP.ACUTE.PN ---
Subjective *Date: 06/05/22 *Time: 11:38 Interval history: POD #1 exploratory laparotomy, left oophorectomy for 13cm dermoid cyst She is tolerating a regular diet [place] just discontinued recently and she has not had an opportunity to void yet Pain control has been difficulty since the surgery She has a long history of anxiety/depression, with multiple different medications as part of current management She reports that she had genetic testing done to evaluate best course of treatment for depression, and that this evaluation also predicted potential suboptimal result with various narcotic pain medication This morning, her pain medication has been changed from oxycodone to dilaudid, which seems to be working better She also has concurrent Covid-19 infection, and the cough associated with this has exacerbated her postoperative pain She is being started on mucinex and tesselon pearls to help with this Hgb today is 11.0 Medical Exam Vital signs and Labs for Last 24 Hours: Vital Signs Temp Pulse Pulse Resp BP BP Pulse Ox 06/05/22 12:51 16 06/05/22 08:59 18 06/05/22 07:59 97 06/05/22 07:58 98.5 F 89 18 119/89 97 06/05/22 03:47 97.7 F 63 17 103/51 L 98 06/05/22 00:30 97.6 F 81 17 112/70 94 L 06/04/22 23:30 97.7 F 63 17 106/64 L 97 06/04/22 22:30 97.6 F 84 18 128/67 97 06/04/22 21:30 98.0 F 78 17 126/72 96 06/04/22 20:30 97.8 F 72 17 98/55 L 97 06/04/22 20:00 97.7 F 74 18 110/72 97 06/04/22 19:30 97.6 F 79 18 115/67 98 06/04/22 19:00 97.8 F 100 H 18 125/76 96 06/04/22 19:48 96 06/04/22 17:30 95 06/04/22 18:30 98.5 F 106 H 16 114/63 96 06/04/22 18:15 68 16 105/59 L 95 06/04/22 18:00 66 17 106/65 L 98 06/04/22 17:45 75 16 119/75 98 06/04/22 17:30 98.9 F 91 H 16 114/56 L 96 06/04/22 16:40 108 H 22 140/70 96 06/04/22 16:37 22 06/04/22 16:32 24 06/04/22 16:27 24 06/04/22 16:22 24 06/04/22 17:10 97.8 F 95 H 16 114/88 96 06/04/22 17:00 91 H 19 112/77 93 L 06/04/22 16:50 87 20 126/65 96 06/04/22 16:30 117 H 24 142/48 H 97 06/04/22 16:20 97.8 F 120 H 16 140/90 94 L 06/04/22 14:26 98.0 F 85 16 129/57 L 06/04/22 16:24 97.5 F L 120 H 16 140/90 Intake and Output 06/05/22 06/05/22 06/05/22 03:59 11:59 19:59 Output Total 3500 / 3500 Balance -3499 Output: Output, Urine Amount 3500 / 3500 Laboratory Results - last 24 hr 06/04/22 15:00: Urine Color Yellow, Urine Appearance Clear, Urine pH 5.5, Ur Specific Swink 1.020, Urine Protein Negative, Urine Glucose (UA) Negative, Urine Ketones Negative, Urine Blood Negative, Urine Nitrate Negative, Urine Bilirubin Negative, Urine Urobilinogen 0.2, Ur Leukocyte Esterase Negative, Urine RBC None, Urine WBC None, Ur Squamous Epith Cells None, Urine Bacteria None 06/05/22 06:10: Hgb 11.0 L D, Hct 34.3 L I & O for Labs for Last 24 Hours: Intake & Output 06/03/22 06/04/22 06/05/22 06/06/22 11:59 11:59 11:59 11:59 Intake Total 1500 / 1500 Output Total 3500 / 3500 Balance -1999 Weight 220 lb ENT: Present mucous membranes moist Neck: Present normal inspection Respiratory: Present CTA bilaterally; Absent respiratory distress Cardiac: Present Reg Rate and Rhythm GI: Present soft and tenderness; Absent distention (female): Present deferred Extremities: Absent tenderness or edema Skin: Present intact and dry Assessment and Plan *Assessment and plan (1) Abdominal pain: Status: Acute Category: Medical Code(s): R10.9 - Unspecified abdominal pain (2) Pelvic pain in female: Status: Acute Category: Medical Code(s): R10.2 - Pelvic and perineal pain (3) Cyst, ovary, dermoid: Status: Acute Category: Medical Code(s): D27.9 - Benign neoplasm of unspecified ov
--- NOTE | 2022-06-05 14:24 | PC.NURSE ---
1400: F/C REMOVED AND PT ASSISTED TO BATHROOM WITH 1 ASSIST. PT TOLERATED WELL. LINENS CHANGED AND TRASH TAKEN OUT AT THIS TIME. MESH PANTIES AND PADS PROVIDED TO PT. 1420: PT SITTING UP IN ROCKING CHAIR. INCENTIVE SPIROMETER REINFORCED. CALL LIGHT WITHIN REACH.
--- NOTE | 2022-06-05 14:46 | PC.NURSE ---
PT INDEPENDENTLY MOVED BACK TO BED FROM CHAIR, TOLERATED WELL. MEDICATED PER EMAR. CALL LIGHT REMAINS WITHIN REACH. PT DENIES ANY OTHER NEEDS OR C/O AT THIS TIME.
--- NOTE | 2022-06-05 16:04 | EXP.ANES.II ---
[facility] Anesthesia Record Part II Anesthesia Record Part II Discharge Time: 17:10 Destination: Obstetric PACU nurse assessment reviewed?: Yes Patient Condition:: Good Anesthesia Complications:: None Swallowing reflex intact?: Yes Cyanosis?: No Blood Pressure: 114/88 Pulse Rate: 95 Temperature: 97.8 F Mental Status: Alert & Oriented Pain level:: 5 Nausea and/or vomitting:: None Intake, IV Amount: 0
--- NOTE | 2022-06-05 17:39 | PC.NURSE ---
1620: REASSESSMENT- PT HAS DONE WELL THIS AFTERNOON. SHE HAS AMBULATED INDEPENDENTLY TO BATHROOM AND BACK TO BED. ABDOMINAL BINDER REMAINS IN PLACE. MIDLINE TELFA AND TEGADERM DRESSING REMAINS IN PLACE WITH SEROSANGUINOUS DRAINAGE NOTED IN TWO AREAS. THIS IS UNCHANGED FROM PREVIOUS ASSESSMENT. VSS. PT VOIDING WITHOUT DIFFICULTY. CALL LIGHT REMAINS WITHIN REACH.
[2022-06-06 03:21] VITALS: BP 122/71; PULSE 66; RESP 17; TEMP 36.5; O2SAT 99
--- NOTE | 2022-06-06 03:22 | PC.NURSE ---
A&OX4. TOLERATING RA WELL T/O SHIFT. PT HAS HAD A MUCH BETTER NIGHT. HAS C/O INTERMITTENT PAIN, CONTROLLED WITH PRN MEDICATION PER MAY. PAIN IS WORSE UPON MOVEMENT. PT HAS AMBULATED INDEPENDENTLY TO BATHROOM, TOLERATED WELL. ADEQUATE U/O, NO BM BUT IS PASSING GAS. INCISION CLEANED AND DRESSING CHANGED THIS SHIFT. CDI, NO DRAINAGE NOTED UPON DRESSING CHANGE. PT TOLERATED WELL. ABD BINDER REMAINS IN PLACE. PT AT BEDSIDE T/O NIGHT. PT STATES COUGH IS BETTER WITH MEDICATION. I/S AT BEDSIDE. PT HAS RESTED MUCH BETTER TONIGHT. NO OTHER NEEDS AT THIS TIME, VSS.
--- NOTE | 2022-06-06 05:21 | PC.NURSE ---
PT CALLED OUT AT THIS TIME STATING SHE HAS ESOPHAGEAL SPASMS THAT FEELS LIKE A GOLF BALL SIZED PIECE OF MEAT THAT IS STUCK IN HER THROAT, CAUSING HER HIGH ANXIETY. PT REQUESTED PRN ATIVAN AT THIS TIME. PT STATES SHE TAKES ALL HER BUSPAR AT NIGHTIME AT HOME, AND THIS SEEMS TO HELP HER ANXIETY MORE. NO OTHER NEEDS NOTED AT THIS TIME. PT SITTING IN BED COMFORTABLY, VSS.
[2022-06-06 08:00] VITALS: BP 121/65; PULSE 89; RESP 18; TEMP 36.8; O2SAT 97
[2022-06-06 08:50] VITALS: PULSE 89; O2SAT 97
--- NOTE | 2022-06-06 10:24 | EXP.ACUTE.PN ---
Subjective *Date: 06/06/22 *Time: 10:24 Interval history: POD # 2 s/p laparotomy, left oophorectomy Resting in bed. Admits pain is not well controlled. She is doing okay with PO Dilaudid. Tolerating regular diet. Voiding without difficulty and passing flatus. Denies fever/chills and chest pain. She has a little shortness of breath secondary to Covid. No lower extremity swelling. Medical Exam Vital signs and Labs for Last 24 Hours: Vital Signs Temp Pulse Pulse Resp BP BP Pulse Ox 06/06/22 08:50 89 97 06/06/22 08:00 98.3 F 89 18 121/65 97 06/06/22 03:21 97.7 F 66 17 122/71 99 06/05/22 20:37 98.1 F 85 18 127/86 100 06/05/22 20:35 100 06/05/22 16:30 98.5 F 78 16 107/63 L 100 06/05/22 16:42 16 06/05/22 14:48 16 06/05/22 12:51 16 06/05/22 16:04 97.8 F 95 H 114/88 Intake and Output 06/05/22 06/06/22 06/06/22 23:59 07:59 15:59 Intake Total 0 / 0 Output Total 0 / 0 0 / 0 Balance 0 / -3900 0 / 0 0 / 0 Intake: Intake, Total IV Amount 0 / 0 Output: Output, Urine Amount 0 / 0 0 / 0 Other: Number of Unmeasured Voids 1 2 I & O for Labs for Last 24 Hours: Intake & Output 06/03/22 06/04/22 06/05/22 06/06/22 23:59 23:59 23:59 23:59 Intake Total 1500 / 1500 0 / 0 Output Total 1700 / 1700 3900 / 3900 0 / 0 Balance -200 / -200 -3900 / -3900 0 / 0 Weight 220 lb Head: Present atraumatic and normocephalic ENT: Present normal exam Neck: Present full ROM Respiratory: Present CTA bilaterally and normal respiratory effort Cardiac: Present Reg Rate and Rhythm GI: Present soft, tenderness (appropriate tenderness to palpation postoperatively) and normal bowel sounds; Absent distention or guarding Rectal (female): Present deferred (female): Present deferred Extremities: Present full ROM; Absent edema or calf tenderness Neuro: Present alert, awake, oriented x 3 and moves all extremities Assessment and Plan *Assessment and plan (1) S/P exploratory laparotomy: Status: Acute Category: Surgical Code(s): Z98.890 - Other specified postprocedural states (2) S/P oophorectomy: Problem Comment: left Status: Acute Category: Surgical (3) Pelvic pain in female: Status: Acute Category: Medical Code(s): R10.2 - Pelvic and perineal pain (4) Abdominal pain: Status: Acute Category: Medical Code(s): R10.9 - Unspecified abdominal pain (5) COVID-19: Status: Acute Category: Medical Code(s): U07.1 - COVID-19 (6) Acute blood loss anemia: Status: Acute Category: Medical Code(s): D62 - Acute posthemorrhagic anemia Plan Doing okay postoperatively Pain not well controlled. Discussed plan. Last IV Toradol dose this morning then transition to Ibuprofen 800 mg, 1 tab PO q 8 hours scheduled. Schedule Tylenol 1000 mg q 6 hours. Stop PO Dilaudid and switch to Oxycodone 5-10 mg q 4-6 hours PRN D/c IV after last Toradol dose Start Miralax BID for the next 2-3 days. She can adjust frequency as needed Encouraged increased ambulation If patient is doing well with pain control regimen possible d/c home this evening. If not, plan d/c home tomorrow. Patient agrees with plan
--- NOTE | 2022-06-06 13:12 | PC.NURSE ---
20 g IV in R AC removed at this time per pt request
--- NOTE | 2022-06-06 17:04 | EXP.DC.SUM ---
General Admission date:: 06/04/22 Discharge date: 06/06/22 HPI HPI HPI: POD # 2 s/p laparotomy, left oophorectomy Resting in bed. Admits pain is controlled enough that she would like to go home. Tolerating regular diet. Voiding without difficulty and passing flatus. Denies fever/chills and chest pain. She has a little shortness of breath secondary to Covid. No lower extremity swelling. Hospital Course Hospital Course Hospital Course: 31 yo P1001. She presented to the ED 06/04/22 with complaint of worsening abdominal/pelvic pain over the past 30 hours Pain most prominent in LLQ. + nausea/vomiting. denied fever/chills. CT showed large left adnexal mass, c/w dermoid cyst Pelvic ultrasound confirmed 10cm left adnexal mass, but could not determine if torsion was present. Transvaginal sonographic images of the pelvis were obtained. The uterus measures 8.4 x 4.0 by 6.0 cm. The endometrium measures 10 mm, which is within normal limits. No uterine mass is identified. The right ovary measures 4 cm in length and left ovary measures 10 cm in length.? There is a 10 cm left ovarian mass consistent with dermoid, seen on CT performed earlier today.? Some blood flow is noted in the periphery of the left ovary.? Previous CT in 2018 showed 5cm left dermoid cyst, but she was not aware of this lesion Covid 19 positive test, but asymptomatic. She underwent an exploratory laparotomy with left oophorectomy on 06/04/22. Pain was not well controlled postoperatively. However, postop day 2 medication was adjusted and she felt pain was controlled enough and she desired to go home. Vital signs were stable, afebrile. She was tolerating regular diet. Voiding without difficulty and passing flatus. On postop day # 2 heart was regular rate and rhythm. Lungs were clear to auscultation. Abdomen was soft and appropriate mild tenderness to palpation. No lower extremity swelling. She was discharged to home with instructions to return to L&D on 06/11/22 for staple removal and follow-up in the office with Dr. Corona in 2 weeks or sooner if needed. Exam Data for Last 24 hours Vital signs and Labs for Last 24 Hours: Temp Pulse Resp BP Pulse Ox 98.3 F 89 18 121/65 97 06/06/22 08:00 06/06/22 08:50 06/06/22 08:00 06/06/22 08:00 06/06/22 08:50 I & O for Last 24 hours: Intake & Output 06/03/22 06/04/22 06/05/22 06/06/22 23:59 23:59 23:59 23:59 Intake Total 1500 / 1500 0 / 0 Output Total 1700 / 1700 3900 / 3900 0 / 0 Balance -200 / -200 -3900 / -3900 0 / 0 Weight 220 lb Constitutional Constitutional: no acute distress *Routine HEENT Exam Head: Present normocephalic and atraumatic Eye: Absent conjunctivae pink ENT: Present mucous membranes moist *Routine Neck Exam Neck: Present full ROM *Routine Respiratory Exam Respiratory: Present CTA bilaterally and normal respiratory effort *Routine Cardiovascular Exam Cardiovascular: Present RRR *Routine Abdominal Exam Abdominal: Present soft and normoactive bowel sounds; Absent tenderness or distended *Routine Rectal Exam Patient deferred: visual exam *Routine Exam Patient deferred: external exam *Routine Extremities Exam Extremities: Present full ROM *Routine Neurological Exam Neurological: Present alert, oriented X3 and moving all extremities Routine Psychiatric Exam Psychiatric: Present normal affect DS: Diagnosis Discharge Diagnosis (1) S/P exploratory laparotomy: Status: Acute (2) S/P oophorectomy: Status: Acute Problem details: left (3) Pelvic pain in female: Status: Acute (4) Abdominal pain: Status: Acute (5) COVID-19: Status: Acute (6) Acute blood loss anemia: Status: Acute Meds Home Medications and Allergies Home Medications Medication Instructions Recorded Confirmed Type albuterol sulfate 90 mcg/actuation 2 puffs inhalation Q6HP PRN 07/14/21 06/04/22 Rx aerosol inhaler Shortness Of Breath 30 days #1 lisseth martin
[2022-06-06 17:08] VITALS: RESP 16
--- NOTE | 2022-06-06 17:52 | PC.NURSE ---
16:30 Reassessment: Pt has napped at intervals this afternoon. Pt has requested to be discharged as she feels fairly controlled with oxycodone. Dr Cooper notified and is putting in order for discharge. vs remain stable. Dressing remains intact over midline incision. Abdominal binder remains intact. Pt to return 06/11/2022 to this unit for staple removal. Pt v/u.
== END 2022-06-06 18:00 | disposition home or self-care (01) ==
LOC: ER 14:23 → OB 14:33
PROVIDERS: Admitting Provider Obstetrics & Gynecology; Emergency Provider Emergency Medicine; PCP Emergency Medicine; Visit Provider Obstetrics & Gynecology
PROC: (CPT 58661; principal; 2022-06-04 14:00)
DX: D27.1 Benign neoplasm of left ovary (principal); U07.1 COVID-19; F33.9 Major depressive disorder, recurrent, unspecified; F41.1 Generalized anxiety disorder; D62 Acute posthemorrhagic anemia
CPT/HCPCS: 58940; 36415; 74177; 76830; 80053; 81001; 81025; 82150; 85014; 85018; 85025; 88307; 88311; 99285; C9803; G0378; J2405; J2710; Q9967; U0003; U0005

== ENCOUNTER → 2022-07-16 16:03 | Outpatient (CLI) | payer OTHER, SELFPAY ==
[2022-07-16 14:47] LABS: Basophils % 0.1 % (0.1-2.0); Eosinophils # 0.1 K/mm3 (0.0-0.4); Eosinophils % 1.5 % (0.1-12.0); Hematocrit 39.4 % (37.0-47.0); Hemoglobin 12.8 g/dL (12.2-16.2); Lymphocytes # 2.1 K/mm3 (0.7-4.5); Lymphocytes % 23.2 % (10-50); Mean Corpuscular HGB Conc 32.4 g/dL (31.8-35.4); Mean Corpuscular Hemoglobin 27.2 pg (27.0-31.2); Mean Corpuscular Volume 83.9 fl (81-99); Mean Platelet Volume 9.2 fl (7.4-10.4); Monocytes # 0.6 K/mm3 (0.1-1.0); Monocytes % 6.9 % (1.7-9.3); Neutrophils # 6.3 K/mm3 (1.8-7.8); Neutrophils % 68.3 % (37.0-80.0); Platelet Count 315 K/mm3 (142-424); Red Cell Distribution Width 15.5 % (11.5-17.5); White Blood Count 9.2 K/mm3 (4.8-10.8)
[2022-07-16 15:02] LABS: Alanine Aminotransferase 67 U/L (12-78); Albumin Level 4.5 g/dl (3.5-5.0); Albumin/Globulin Ratio 1.6 (1.1-1.8); Alkaline Phosphatase 136 U/L (38-126); Anion Gap 15.6 mEq/L (5-15); Aspartate Amino Transferase 45 U/L (14-36); Bilirubin,Total 0.3 mg/dl (0.2-1.3); Blood Urea Nitrogen 12 mg/dl (7-17); Calcium 9.5 mg/dl (8.4-10.2); Carbon Dioxide 27 mmol/L (22.0-30.0); Chloride 102 mmol/L (98-107); Chol/HDL Ratio 5.5 (1-3.5); Cholesterol 265 mg/dl (140-200); Estimated Glomerular Filt Rate 74 ml/min (>60); GFR (African American) 89 ML/MIN (>60); Globulin 2.9 g/dL (1.3-3.2); Glucose 106 mg/dl (74-100); HDL Cholesterol 48 mg/dl (40-60); Potassium 4.6 mmoL/L (3.5-5.1); Sodium 140 mmol/L (136-145); Total Protein,Serum 7.4 g/dl (6.3-8.2); Triglycerides 154 mg/dl (30-150); VLDL Cholesterol 31 mg/dL (0-40)
[2022-07-16 15:13] LABS: Direct LDL Cholesterol 180.43 mg/dL (100-129)
[2022-07-16 15:18] LABS: 25-OH Vitamin D, Total 26.1 ng/mL (30-100)
[2022-07-16 15:21] LABS: T4 (Thyroxine) 12.4 ug/dl (5.53-11.0)
[2022-07-16 15:34] LABS: Thyroid Stimulating Hormone 2.56 uIU/mL (0.465-4.68)
[2022-07-18 17:20] LABS: Tissue Transglutaminase IgA Ab <2 U/mL (0-3); Tissue Transglutaminase IgG Ab 2 U/mL (0-5)
[2022-07-22 11:30] LABS: F001-IgE Egg White <0.10 kU/L (Class 0); F002-IgE Milk <0.10 kU/L (Class 0); F003-IgE Codfish <0.10 kU/L (Class 0); F004-IgE Wheat <0.10 kU/L (Class 0); F010-IgE Sesame Seed <0.10 kU/L (Class 0); F013-IgE Peanut <0.10 kU/L (Class 0); F014-IgE Soybean <0.10 kU/L (Class 0); F024-IgE Shrimp <0.10 kU/L (Class 0); F256-IgE Walnut <0.10 kU/L (Class 0); F338-IgE Scallop <0.10 kU/L (Class 0)
== END ==
PROVIDERS: PCP Physician Assistant; Visit Provider Physician Assistant
DX: L50.9 Urticaria, unspecified (principal); E04.1 Nontoxic single thyroid nodule; E55.9 Vitamin D deficiency, unspecified; E66.9 Obesity, unspecified; Z68.38 Body mass index [BMI] 38.0-38.9, adult; Z79.899 Other long term (current) drug therapy
CPT/HCPCS: 80053; 80061; 82306; 83516; 84436; 84443; 85025; 86003; 86008

== ENCOUNTER → 2022-07-21 09:12 | Outpatient (CLI) | payer OTHER, SELFPAY ==
[2022-07-21 09:19] VITALS: BMI 36.6
[2022-07-23 12:12] LABS: HBsAg Screen Negative (Negative); Hep A Ab, IGM Negative (Negative); Hep B Core Ab, IgM Negative (Negative)
[2022-08-02 21:08] LABS: HCV Ab 0 s/co rat (0.0-0.9)
== END ==
PROVIDERS: PCP Physician Assistant; Visit Provider Emergency Medicine
DX: L50.9 Urticaria, unspecified (principal)
CPT/HCPCS: 80074

== ENCOUNTER → 2022-07-23 08:00 | Outpatient (CLI) | payer OTHER, SELFPAY ==
--- NOTE | 2022-07-23 08:14 | US_ITS ---
FINAL REPORT CLINICAL HISTORY: elevated liver enzymes FINDINGS: Sonographic images of the right upper quadrant were obtained. The pancreas is partially obscured. There is an Q cyst echogenicity in the liver consistent with fatty infiltration. The portal vein is borderline measuring 13 mm. The gallbladder appears normal without evidence of gallstones.There is no evidence of biliary ductal dilatation.The common duct measures 2.6 mm. Limited images of the right kidney are unremarkable. IMPRESSION: Fatty liver. Reviewed, Interpreted and Dictated by Jose Hernandez III, MD Transcribed by Meenakshi Carr Authenticated and [facility]
== END ==
PROVIDERS: PCP Physician Assistant; Visit Provider Physician Assistant
DX: R10.11 Right upper quadrant pain (principal)
CPT/HCPCS: 76705

== ENCOUNTER → 2022-07-28 08:14 | Outpatient (CLI) | payer OTHER, SELFPAY ==
--- NOTE | 2022-07-28 08:23 | US_ITS ---
FINAL REPORT TECHNIQUE: Sonographic images of the thyroid were obtained. CLINICAL HISTORY: thyroid nodules COMPARISON: 02/01/2020 FINDINGS: THYROID ULTRASOUND The right thyroid gland measures 5.0 x 1.2 x 2.0 cm. The left thyroid gland measures 5.5 x 1.6 x 1.7 cm. The thyroid gland is diffusely nodular and heterogeneous. Hypoechoic nodules are seen bilaterally. The largest nodule is in the left lobe and measures up to 9 mm in greatest dimension. This is consistent with a TI-RADS 4 nodule. IMPRESSION: Nodular, heterogeneous parenchyma, favor diffuse goiter. TI-RADS 4 subcentimeter nodule in the left lobe. Per criteria, no follow-up is required. Reviewed, Interpreted and Dictated by Thierno Young MD Transcribed by Meenakshi Carr Authenticated and [facility]
--- NOTE | 2022-07-28 08:23 | MM_ITS ---
PROCEDURE INFORMATION: Exam: MG Bilateral Screening 3D Mammography Exam date and time: 07/28/2022 8:25 AM Age: 32 years old Clinical indication: Screening examination; Additional info: H/o lumpectomy right breast . Family history of breast carcinoma. TECHNIQUE: Imaging protocol: Bilateral Screening tomosynthesis and 2D mammography including computer-aided detection (CAD) when performed. COMPARISON: 1. MG MM DIG MAMM BI DX W/CAD 02/01/2020 1:44 PM 2. MG BC-BREAST SPEC (NL/PATH) 10/24/2014 11:36 AM FINDINGS: MAMMOGRAPHY: Breast composition: There are scattered areas of fibroglandular density. Mass: No suspicious masses. Architectural distortion: No suspicious distortion. Calcifications: No suspicious calcifications. Asymmetric density: None. Skin thickening: None. Axillary adenopathy: None. IMPRESSION: 1. No mammographic evidence of malignancy. Annual screening is recommended unless otherwise clinically indicated. 2. Given the reported risk factors for this patient, a breast cancer risk assessment may prove useful for further evaluation. ASSESSMENT: BI-RADS Category 1: Negative
== END ==
PROVIDERS: PCP Physician Assistant; Visit Provider Physician Assistant
DX: Z12.31 Encounter for screening mammogram for malignant neoplasm of breast (principal); Z98.890 Other specified postprocedural states; E04.1 Nontoxic single thyroid nodule
CPT/HCPCS: 76536; 77063; 77067

== ENCOUNTER 2022-10-10 17:43 | Outpatient (CLI) | payer OTHER, SELFPAY ==
[2022-10-10 17:53] VITALS: BMI 38.4
[2022-10-10 17:56] VITALS: BP 136/72; PULSE 78; RESP 18; O2SAT 98
== END 2022-10-10 17:57 | disposition home or self-care (01) ==
PROVIDERS: PCP Physician Assistant; Visit Provider Nurse Practitioner Family
DX: T78.40XA Allergy, unspecified, initial encounter (principal)

== ENCOUNTER 2023-05-03 19:50 | Outpatient (CLI) | payer OTHER, SELFPAY ==
[2023-05-03 19:06] LABS: Basophils % 0.3 % (0.1-2.0); Eosinophils # 0.2 K/mm3 (0.0-0.4); Eosinophils % 2.3 % (0.1-12.0); Hematocrit 37.9 % (37.0-47.0); Hemoglobin 12.5 g/dL (12.2-16.2); Lymphocytes # 1.9 K/mm3 (0.7-4.5); Lymphocytes % 28.6 % (10-50); Mean Corpuscular HGB Conc 32.9 g/dL (31.8-35.4); Mean Corpuscular Hemoglobin 27.1 pg (27.0-31.2); Mean Corpuscular Volume 82.3 fl (81-99); Mean Platelet Volume 9.3 fl (7.4-10.4); Monocytes # 0.7 K/mm3 (0.1-1.0); Neutrophils % 58.8 % (37.0-80.0); Platelet Count 256 K/mm3 (142-424); Red Cell Distribution Width 15.1 % (11.5-17.5); White Blood Count 6.8 K/mm3 (4.8-10.8)
[2023-05-03 19:27] LABS: Hemoglobin A1C 5.4 % (4.0-6.0)
[2023-05-03 19:32] LABS: Alanine Aminotransferase 41 U/L (12-78); Albumin Level 4.4 g/dl (3.5-5.0); Albumin/Globulin Ratio 1.7 (1.1-1.8); Alkaline Phosphatase 96 U/L (38-126); Anion Gap 12.9 mEq/L (5-15); Aspartate Amino Transferase 29 U/L (14-36); Bilirubin,Total 0.3 mg/dl (0.2-1.3); Blood Urea Nitrogen 9 mg/dl (7-17); Calcium 9.7 mg/dl (8.4-10.2); Carbon Dioxide 23 mmol/L (22.0-30.0); Chloride 106 mmol/L (98-107); Cholesterol 215 mg/dl (140-200); Estimated Glomerular Filt Rate 73 ml/min (>60); GFR (African American) 88 ML/MIN (>60); Globulin 2.6 g/dL (1.3-3.2); Glucose 87 mg/dl (74-100); HDL Cholesterol 36 mg/dl (40-60); Potassium 3.9 mmoL/L (3.5-5.1); Sodium 138 mmol/L (136-145); Triglycerides 122 mg/dl (30-150); VLDL Cholesterol 24 mg/dL (0-40)
[2023-05-03 19:44] LABS: Direct LDL Cholesterol 136.48 mg/dL (100-129)
[2023-05-03 19:51] LABS: 25-OH Vitamin D, Total 18.2 ng/mL (30-100)
[2023-05-03 20:22] LABS: Vitamin B12 636 pg/mL (239-931)
== END 2023-05-03 23:59 ==
LOC: LAB.DROPOF 19:53
PROVIDERS: PCP Physician Assistant; Visit Provider Physician Assistant
DX: E03.9 Hypothyroidism, unspecified (principal); G43.909 Migraine, unspecified, not intractable, without status migrainosus; E55.9 Vitamin D deficiency, unspecified; Z79.899 Other long term (current) drug therapy
CPT/HCPCS: 80053; 80061; 82306; 82607; 83036; 84443; 85025

== ENCOUNTER 2023-05-12 14:47 | Outpatient (CLI) | payer OTHER, SELFPAY ==
--- NOTE | 2023-05-12 14:52 | CA_ITS ---
APPROVED REPORT EXAM: Comprehensive 2D, Doppler, and color-flow Echocardiogram Log Skidder: AILYN Govea, RVS Ht: 5 ft 2 in Wt: 206lbs BSA: 1.94 BP: 136/91 mmHg Indications: Syncope, abnormal EKG, Dizziness Echo Enhancing Agent Indication: Rule Out Septal Defect Agent(s) / Amount(s) Used: Agitated Saline 20 cc Comments: inconclusive for right -to-left shunt 2D Dimensions IVSd 0.83 cm LVEF (Visual) 69.20 % PWd 0.79 cm LA Volume 31.10 mL LVDd 4.18 cm LA Volume Index 15.70 mL/m2 (M/F) 16-34 LVDs 2.57 cm Left Atrium 2.70 cm M-Mode Dimensions LA Diam 3.23 cm (1.9-4.0) EPSs 0.32 cm TAPSE 1.45 (<1.7) LV Diastology E Decel Time 187 (160-240 msec) E/A Ratio 0.89 MED A' 6.70 cm/s LAT A' 7.50 cm/s Aortic Valve STERLING Index 1.09 cm2/m2 AoV Peak Raji. 109.0 (50-130 cm/s) AO Peak GR. 4.70 mmHg AO Mean GR. 2.30 (<5 mmHg) AO VTI 16.8 (18-25 cm) STERLING (VTI) 2.16 (2.5-4.5 cm2) Mitral Valve MV A Velocity 59.0 (40-130 cm/s) E/A Ratio 0.89 Left Ventricle The left ventricle is normal size. The left ventricular systolic function is normal. The left ventricular ejection fraction is within the normal range. There is normal left ventricular wall thickness. There is normal LV segmental wall motion. The left ventricular diastolic function is normal. LVEF is 55%. Right Ventricle The right ventricle is normal size. The right ventricular systolic function is normal. Qp:Qs ratio = 1.0 (LVOT diameter 2.1 cm, LVOT VTI 17.1 cm, RVOT diameter 2.3 cm, RVOT VTI 13.3) Atria The left atrium size is normal. The right atrium size is normal. The interatrial septum is intact with no evidence for an atrial septal defect. Agitated saline administration is inconclusive in the setting of difficulty visualizating the LV during acqusition of the study images, possibly positive study with sniff maneuver. Aortic Valve The aortic valve opens well. There is no aortic valvular stenosis. No aortic regurgitation is present. Mitral Valve The mitral valve is normal in structure. No evidence of mitral valve stenosis. There is no mitral valve regurgitation noted. Tricuspid Valve The tricuspid valve leaflets are thin and pliable. There is no tricuspid valve stenosis. Trace tricuspid regurgitation. Pulmonic Valve The pulmonary valve is normal in structure. Trace pulmonic regurgitation. Great Vessels The aortic root is normal in size. The pulmonary artery is normal. The ascending aorta is normal in size. Pericardium There is no pericardial effusion. Other Information Study Quality: Fair Conclusion Normal biventricular systolic function. No significant valvular stenosis or regurgitation. Agitated saline administration is inconclusive to rule out interatrial shutn in the setting of difficulty visualizating the LV during acqusition of the study images, possibly positive study with sniff maneuver. In the setting of normal RV size/function and normal TTE Qp:Qs ratio of 1.0, no further evaluation is recommended to conclusively rule out interatrial shunt. Electronically signed by : Rosy Phillips MD 05/15/2023 19:30:57
== END 2023-05-12 23:59 ==
LOC: RT 14:52
PROVIDERS: PCP Physician Assistant; Visit Provider Internal Medicine
DX: R55 Syncope and collapse (principal); R42 Dizziness and giddiness; R94.31 Abnormal electrocardiogram [ECG] [EKG]; K21.9 Gastro-esophageal reflux disease without esophagitis
CPT/HCPCS: 93270; 93306

== ENCOUNTER 2023-05-13 07:41 | Outpatient (CLI) | payer OTHER, SELFPAY ==
--- NOTE | 2023-05-13 07:44 | CT_ITS ---
APPROVED REPORT Administrative Accountant: CLINICAL INDICATION Chest Pain TECHNIQUE Image Acquisition: A 128 slice MDCT scanner ([employer] Mob[employer] View) was used for data acquisition. A noncontrast coronary calcium scan was performed. A CT attenuation threshold of 130 Hounsfield units (HU) was used for the detection of calcium in contiguous voxels of 1 sq mm in area to be counted as individual lesions. Bolus tracking in the ascending aorta with a threshold of 180 HU was performed. Immediately afterwards, ECG synchronized cardiac CT was then performed from the cardiac base to apex using retrospective gating with ECG tube current modulation. A total of 85 mL of Isovue 370 mg/mL contrast medium was administered at 5 mL/sec followed by a saline flush using a biphasic injection protocol. A tube voltage of 120 KVp was used. The patient received the following medications prior to the cardiac CT. 75 mg of oral metoprolol 15 mg of oral ivabradine 0.8 mg of sublingual nitroglycerin The average heart rate at the time of acquisition was 57 bpm and regular. Image Reconstruction Transaxial images were reconstructed at 0.67 mm slide thickness. Data was reviewed interactively on an advanced workstation capable of 2 and 3-dimensional displays in all conventional reconstruction formats, including multiplanar reformations, maximum intensity projections, curved multiplanar reformations, and volume rendered reconstructions. When applicable, selected routine images describing the relevant coronary anatomy and pathology were saved and sent to PACS. Complications None Technical Quality Overall image quality was good. Coronary artery opacification was adequate. Total DLP (Dose-Length Product) is 1408.6 mGy-cm. The reported value represents the total of one or more individual components during the CT acquisition of this date and at this time, and as such, the same value may appear in more than one CT report depending on the interpreting/reporting physicians. COMPARISON None FINDINGS CT Coronary Calcium Scoring LMA (Left Main Artery) = 0 LAD (Left Anterior Descending) = 0 LCX (Left Coronary Circumflex) = 0 RCA (Right Coronary Artery) = 0 Total Calcium Score = 0 using the AJ-130 method. The interpretation of the calcium heart score is based on the following continuum*: 0 = no calcified plaque detected (risk of coronary artery disease is very low ??? less than 5%) 1-10 = calcium detected in extremely minimal levels (risk of coronary diseases is still low ??? less than 10%) 11-100 = mild levels of plaque detected with certainty (mild or minimal narrowing of heart arteries is likely) 101-400 = definite,at least moderate levels of plaque detected (relatively high risk of a heart attack within 3-5 years) >401-999 = extensive levels of plaque detected (high risk of heart attack, high levels of vascular disease are present, high likelihood of at least one significant coronary narrowing) *The calcium heart score quantifies the burden of coronary calcification/plaque in the coronary arteries. The calcium heart score is not able to evaluate the presence or burden of non-calcified (i.e. soft) plaque. There is no identifiable calcification in the aortic valve, mitral annulus or mitral valve, pericardium, or myocardium. Coronary CT Angiography The coronary arterial system is right dominant. Quantitative Stenosis Grading: Left Main (LM): The left main originates normally from the left sinus of Valsalva. The LM bifurcates into the left anterior descending artery and left circumflex artery. The LM is patent with no evidence of atherosclerosis. Left Anterior Descending (LAD) and Diagonal Branches: The LAD gives off 2 diagonal branches. The LAD and its branches are patent with no evidence of atherosclerosis. There is no evidence of LAD-myocardial bridge. Left Circumflex (LCX) and Obtuse Marginals (OM): The LCX gives off 2 Obtuse Marginal (OM) branches. The LCX and its branches are patent with no evidence of atherosclerosis. Right Coronary Artery (RCA): The RCA originates normally from the right sinus of Valsalva. The RCA gives off a posterior descending artery (PDA) and posterolateral (PL) branches. The RCA and its branches are patent with no evidence of atherosclerosis. Non-Coronary Cardiac Findings: Analysis of the left ventricular (LV) structure and function was performed after 3-D reconstruction of the LV from axial images, with user-corrected automatic contouring for assessment of LV volumes and user-defined reconstruction from oblique planes for measurement of 3-D cardiac structure and function. LVEDV: 162 mL LVESV: 78 mL SV: 84 mL LVEF: 52% -The left ventricle is normal in size with normal left ventricular systolic function. -There is no left atrial appendage filling defect. Two right pulmonary veins and two left pulmonary veins drain normally into the left atrium. -No pericardial thickening or calcification. -Central and branch pulmonary arteries in the [id number] are unremarkable. -Thoracic aorta within the visualized thoracic aortic-branches in the alsmf-ko-[id number] is unremarkable. Extracardiac Structures No significant extra-cardiac findings. Note, however, that this study is focused on the cardiac findings. IMPRESSION -Absent coronary calcification with an Agatston score = 0 using the AJ-130 method. -No evidence of significant flow-limiting atherosclerosis of the coronary arteries. -No evidence of coronary anomalies or myocardial bridges. -CAD-RADS 0. Management recommendations per ACC/AHA guidelines*, as clinically appropriate. *Recommendations: CAD RADS 0: Reassurance. Consider non-atherosclerotic causes of chest pain. CAD RADS 1: Consider non-atherosclerotic causes of chest pain. Consider preventive therapy and risk factor modification. CAD RADS 2: Consider non-atherosclerotic causes of chest pain. Consider preventive therapy and risk factor modification, particularly for patients with nonobstructive plaque in multiple segments. CAD RADS 3: Consider further functional testing. Consider symptom-guided anti-ischemic and preventive pharmacotherapy as well as risk factor modification per published guideline statements. CAD RADS 4A: Consider further functional testing or invasive coronary angiography with revascularization per published guideline statements. Consider symptom-guided anti-ischemic and preventive pharmacotherapy as well as risk factor modification per published guideline statements. CAD RADS 4B: Invasive coronary angiography recommended with revascularization per published guideline statements. Consider symptom-guided anti-ischemic and preventive pharmacotherapy as well as risk factor modification per published guideline statements. CAD RADS 5: Consider invasive angiography and/or viability assessment with revascularization per published guideline statements. Consider symptom-guided anti-ischemic and preventive pharmacotherapy as well as risk factor modification per published guideline statements. CRITICAL RESULT None COMMUNICATION Per this written report The coronary and cardiac findings of this CCTA were reviewed, reported, and signed by Jonel Phillips MD (Process Operator) Conclusion Electronically signed by : Rosy Phillips MD 05/13/2023 12:13:34
[2023-05-13 08:05] VITALS: BP 128/78; PULSE 93; RESP 18; TEMP 36.7; O2SAT 97
[2023-05-13 08:12] VITALS: BMI 37.6
[2023-05-13] MEDS: IVABRADINE HCL 7.5MG TABLET *IVABRADINE+METOPROLOL REGIMINE 15 MG PO (08:13)
[2023-05-13] MEDS: METOPROLOL TARTRATE 50MG TABLET *IVABRADINE+METOPROLOL REGIMINE 75 MG PO (08:14)
[2023-05-13 08:24] LABS: Microscopic, Urine URINE MICROSCOPIC (MICROSCOPIC)
[2023-05-13 08:43] LABS: Appearance,Urine CLEAR (Clear); Bilirubin,Urine Negative (Negative); Blood, Urine TRACE-L (Negative); Color,Urine YELLOW (Yellow); Glucose,Urine (UA) Negative (Negative); Ketones,Urine Negative (Negative); Leukocyte Esterase,Urine 1+ (Negative); Nitrate,Urine Negative (Negative); Protein,Urine Negative (Negative); Specific Gravity, Urine >= 1.030 (1.005-1.030); Urobilinogen,Urine 0.2 EU/dl (0.2)
[2023-05-13 08:49] LABS: Urine Pregnancy, HCG Qual. Negative (Negative)
[2023-05-13 08:53] LABS: Chloride 104 mmol/L (98-107)
[2023-05-13 08:54] LABS: Potassium 3.7 mmoL/L (3.5-5.1); Sodium 138 mmol/L (136-145)
[2023-05-13 08:57] LABS: Anion Gap 7.7 mEq/L (5-15); Blood Urea Nitrogen 12 mg/dl (7-17); Calcium 9.5 mg/dl (8.4-10.2); Carbon Dioxide 30 mmol/L (22.0-30.0); Creatinine Clearance Estimated 109 mL/min (50-200); Estimated Glomerular Filt Rate 58 ml/min (>60); GFR (African American) 70 ML/MIN (>60); Glucose 99 mg/dl (74-100)
[2023-05-13 09:10] VITALS: BP 133/65
[2023-05-13 09:13] VITALS: BP 109/57
[2023-05-13 09:17] VITALS: BP 100/49
[2023-05-13 09:22] VITALS: BP 98/60; PULSE 64; RESP 17; O2SAT 98
[2023-05-13] MEDS: IOPAMIDOL-370 (76%);100ML BOTTLE 85 ML IV (09:23)
[2023-05-13] MEDS: 0.9 % SODIUM CHLORIDE 50 ML VIAL IV (09:23)
[2023-05-13] MEDS: SODIUM CHLORIDE 0.9% 10ML SYR (RAD ONLY) 10 ML IV (09:23)
[2023-05-13] MEDS: NITROGLYCERIN 0.4MG SL TABLET 0.800000000000000044 MG SL (09:26)
[2023-05-13 09:29] VITALS: BP 109/58; PULSE 62; RESP 18; O2SAT 98
[2023-05-13 10:43] LABS: Bacteria,Urine 1+ /lpf; RBC,Urine Occasional #/hpf (0-3); Squamous Epithelial Cell,Urine 20-50 #/hpf (0-5)
[2023-05-18 09:21] LABS: Dopamine, Plasma < 30 pg/mL (0-48); Epinephrine, Plasma < 15 pg/mL (0-62); Norepinephrine, Plasma 346 pg/mL (0-874)
== END 2023-05-13 09:30 | disposition home or self-care (01) ==
PROVIDERS: PCP Physician Assistant; Visit Provider Internal Medicine
DX: R55 Syncope and collapse (principal); R42 Dizziness and giddiness; R94.31 Abnormal electrocardiogram [ECG] [EKG]; K21.9 Gastro-esophageal reflux disease without esophagitis; N39.0 Urinary tract infection, site not specified; B95.2 Enterococcus as the cause of diseases classified elsewhere
CPT/HCPCS: 75571; 75574; 80048; 81001; 81025; 82384; 82533; 83520; 87086; Q9967

== ENCOUNTER 2023-06-22 07:26 | Outpatient (CLI) | payer OTHER, SELFPAY ==
--- NOTE | 2023-06-22 07:26 | MR_ITS ---
FINAL REPORT CLINICAL HISTORY: seizure. passing out. headache. FINDINGS: Multiplanar MR imaging of the brain was performed without and with contrast. There is no evidence of intracranial hemorrhage or mass. No abnormal extra-axial fluid collection is seen. The ventricular size is within normal limits. There is no evidence of shift of the midline structures. The posterior fossa and brainstem have an unremarkable appearance. No area of abnormal restricted diffusion is identified. No abnormal contrast enhancement is seen. Normal major vessel vascular flow voids are noted. IMPRESSION: No acute intracranial abnormality identified. Reviewed, Interpreted and Dictated by Thierno Young MD Transcribed by Karen Grande Authenticated and [facility]
[2023-06-22] MEDS: GADOTERIDOL INJ 17ML SYRINGE 19 ML IV (08:13)
[2023-06-22] MEDS: SODIUM CHLORIDE 0.9% 10ML SYR (RAD ONLY) 10 ML IV (08:13)
== END 2023-06-22 23:59 ==
LOC: RAD 07:26
PROVIDERS: PCP Physician Assistant; Visit Provider Nurse Practitioner Family
DX: R51.9 Headache, unspecified (principal); R41.3 Other amnesia; R55 Syncope and collapse; G89.29 Other chronic pain
CPT/HCPCS: 70553; A9576

== ENCOUNTER 2023-07-26 19:29 | Emergency (ER) | payer SELFPAY ==
[2023-07-26 19:32] VITALS: BP 141/80; PULSE 103; RESP 20; TEMP 36.9; O2SAT 97; BMI 38.4
--- NOTE | 2023-07-26 19:57 | XR_ITS ---
PROCEDURE INFORMATION: Exam: XR Right Knee Exam date and time: 07/26/2023 7:58 PM Age: 33 years old Clinical indication: Pain; Knee; Right TECHNIQUE: Imaging protocol: Radiologic exam of the right knee. Views: 3 views. COMPARISON: No relevant prior studies available. FINDINGS: Bones/joints: Normal. Soft tissues: Normal. IMPRESSION: No acute findings.
--- NOTE | 2023-07-26 19:58 | ED_ITS ---
Discharge Plan Disposition Patient Disposition: Home, Self-Care Condition: Good Prescriptions Prescriptions: New lidocaine 5 % adhesive patch,medicated 1 patch topical Q24H PRN (Reason: pain) 5 Days Qty: 15 0RF Rx Instructions: leave on most painful area for up to 12 hrs ibuprofen [IBU] 800 mg tablet 800 mg PO Q6H PRN (Reason: pain) 5 Days Qty: 20 0RF No Action tizanidine [Zanaflex] 4 mg capsule 4 mg PO BID PRN bupropion HCl [Wellbutrin XL] 300 mg tablet extended release 24 hr 300 mg PO DAILY Qty: 90 0RF Rx Instructions: take daily with 150mg tablet; dose is 450mg daily bupropion HCl [Wellbutrin XL] 150 mg tablet extended release 24 hr 150 mg PO DAILY Qty: 90 0RF Rx Instructions: take daily with 300mg tablet; dose is 450mg daily buspirone 10 mg tablet See Rx Instructions .ROUTE .COMPLEX Qty: 120 2RF Dose Instruction: TAKE TWO TABLETS BY MOUTH THREE TIMES DAILY FOR ANXIETY Rx Instructions: TAKE TWO TABLETS BY MOUTH THREE TIMES DAILY FOR ANXIETY lamotrigine 200 mg tablet 200 mg PO HS Qty: 90 0RF trazodone 100 mg tablet 200 mg PO HS Qty: 90 0RF epinephrine 0.3 mg/0.3 mL auto-injector 1 mg SQ NEEDED PRN (Reason: Allergic Reaction) Patient Comments: INJECT THE CONTENTS OF 1 AUTO-INJECTOR INTRAMUSCULARLY ONCE NEEDED FOR ANAPHYLAXIS REACTION -may REPEAT in 5 TO 15 minutes if needed - call 911 AFTER USE - omeprazole 40 mg capsule,delayed release(DR/EC) See Rx Instructions .ROUTE .COMPLEX Qty: 90 2RF Dose Instruction: TAKE ONE CAPSULE BY MOUTH EVERY DAY FOR stomach Rx Instructions: TAKE ONE CAPSULE BY MOUTH EVERY DAY FOR stomach levothyroxine 100 mcg tablet See Rx Instructions .ROUTE .COMPLEX Qty: 90 2RF Dose Instruction: TAKE ONE TABLET BY MOUTH EVERY DAY FOR thyroid Rx Instructions: TAKE ONE TABLET BY MOUTH EVERY DAY FOR thyroid montelukast 10 mg tablet See Rx Instructions .ROUTE .COMPLEX Qty: 90 2RF Dose Instruction: TAKE ONE TABLET BY MOUTH EVERY EVENING Rx Instructions: TAKE ONE TABLET BY MOUTH EVERY EVENING famotidine 20 mg tablet 20 mg PO DAILY Qty: 90 1RF hydroxyzine HCl 25 mg tablet 25 mg PO BID PRN (Reason: itching) Qty: 180 1RF gabapentin 100 mg capsule 200 mg PO TID Qty: 180 2RF jeomivlesd-mnbcjwwcpithf-umxa 50-325-40 mg tablet 1 tab PO BIDP PRN (Reason: Migraine Headache) Qty: 20 0RF ondansetron 4 mg tablet,disintegrating See Rx Instructions .ROUTE .COMPLEX Qty: 30 2RF Dose Instruction: DISSOLVE ONE TABLET in MOUTH EVERY 8 HOURS NEEDED FOR NAUSEA Rx Instructions: DISSOLVE ONE TABLET in MOUTH EVERY 8 HOURS NEEDED FOR NAUSEA atorvastatin [Lipitor] 10 mg tablet 10 mg PO HS Qty: 30 2RF ergocalciferol (vitamin D2) 1,250 mcg (50,000 unit) capsule 1,250 mcg PO WEEKLY Qty: 7 2RF dextroamphetamine-amphetamine [Adderall XR] 15 mg capsule,extended release 24hr 15 mg PO DAILY Qty: 30 0RF lorazepam [Ativan] 1 mg tablet 1 mg PO TIDP PRN (Reason: anxiety) Qty: 90 0RF albuterol sulfate 8.5 GM HFA aerosol inhaler 2 puffs inhalation Q6HP PRN (Reason: Shortness Of Breath) 30 Days Qty: 1 5RF Referrals Follow up/Referrals: Alvina Toro PA [Primary Care Provider] - See instructions Jake Deshpande DO [Staff Physician] - See instructions (Patient with right knee pain with reported grinding sensation. Will need follow-up for evaluation concerning ligamentous or meniscal injury.) Activity Restrictions/Add. Instructions Additional Instructions/Restrictions: You have been evaluated in the ED for your complaints. You may follow-up with your PCP in the next 3 to 5 days. Please return to ED for any new or worsening symptoms. I have written for lidocaine patches and 800 mg ibuprofen to take to assist with your pain. Please use these as needed. If taking ibuprofen I do recommend taking it every 5-6 hours mizqkk-kox-iyfxt over the next 2 days to further assist with pain. Rest, ice, compress and elevate your extremity. Stanford ghtbearing as tolerated. Please follow-up with orthopedics. Clinical Impressions Clinical Impression: Knee pain, right Stand Alone Forms Stand Alone Forms: Work/School Release Instructions Patient Instructions: DI for Knee Pain Discharge ED Provider: Rick Toledo Adult [facility] General Chief complaint: Extremity Injury, Lower Stated complaint: WC 07/26/23 0030 Right knee pain Time Seen by Provider: 07/26/23 19:39 Mode of Arrival: Ambulatory Source of Information: Patient Limitations: No Limitations Description of Symptoms (Recalled from ER Triage Doc. 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 today after waking up patient noted increase in pain behind knee and now a grinding sensation as well as pain down into the achilles tendon History of Present Illness HPI narrative: 33-year-old female with past medical history significant for JOY, asthma, hypothyroidism, GERD, ADHD, presents today for evaluation concerning right knee pain onset yesterday. 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 She states that since that time she has felt a grinding like sensation when walking. She has still been able to ambulate however with some difficulty secondary to pain. She denies any other associated injuries. Has not taken any pain medications to assist. Related Data Home Medications Medication Instructions Recorded Confirmed epinephrine 0.3 mg/0.3 mL 1 mg SQ NEEDED PRN Allergic 05/03/23 06/15/23 injection, auto-injector Reaction tizanidine 4 mg capsule (Zanaflex) 4 mg PO BID PRN 06/01/23 06/15/23 Previous Rx's Medication Instructions Recorded albuterol sulfate 90 mcg/actuation 2 puffs inhalation Q6HP PRN 07/14/21 aerosol inhaler Shortness Of Breath 30 days #1 ea bntmwnukkm-zmubmhdtkizkn-xfbsejnu 1 tab PO BIDP PRN Migraine 07/28/22 50 mg-325 mg-40 mg tablet Headache #20 tabs ondansetron 4 mg disintegrating See Rx Instructions .Route 02/01/23 tablet .COMPLEX #30 tabs famotidine 20 mg tablet 20 mg PO DAILY #90 tabs 05/03/23 gabapentin 100 mg capsule 200 mg (2 x 100 mg) PO TID nerve 05/03/23 pain #180 caps hydroxyzine HCl 25 mg tablet 25 mg PO BID PRN itching #180 tabs 05/03/23 levothyroxine 100 mcg tablet See Rx Instructions .Route 05/03/23 .COMPLEX #90 tabs montelukast 10 mg tablet See Rx Instructions .Route 05/03/23 .COMPLEX #90 tabs omeprazole 40 mg capsule,delayed See Rx Instructions .Route 05/03/23 release .COMPLEX #90 caps atorvastatin 10 mg tablet (Lipitor) 10 mg PO HS #30 tabs 05/04/23 ergocalciferol (vitamin D2) 1,250 1,250 mcg PO WEEKLY #7 caps 05/04/23 mcg (50,000 unit) capsule bupropion HCl 150 mg 24 hr tablet, 150 mg PO DAILY Depression #90 tabs 05/05/23 extended release (Wellbutrin XL) bupropion HCl 300 mg 24 hr tablet, 300 mg PO DAILY depression #90 05/05/23 extended release (Wellbutrin XL) tabs buspirone 10 mg tablet See Rx Instructions .Route 05/05/23 .COMPLEX #120 tabs lamotrigine 200 mg tablet 200 mg PO HS bipolar #90 tabs 05/05/23 trazodone 100 mg tablet 200 mg (2 x 100 mg) PO HS sleep 05/05/23 #90 tabs dextroamphetamine-amphetamine ER 15 mg PO DAILY ADHD #30 caps 06/22/23 15 mg 24hr capsule,extend release (Adderall XR) lorazepam 1 mg tablet (Ativan) 1 mg PO TIDP PRN anxiety #90 tabs 06/22/23 ibuprofen 800 mg tablet (IBU) 800 mg PO Q6H PRN pain 5 days #20 07/26/23 tabs lidocaine 5 % topical patch 1 patch topical Q24H PRN pain 5 07/26/23 days #15 ea Allergies Allergy/AdvReac Type Severity Reaction Status Date / Time oseltamivir [From TAMIFLU] Allergy Unknown NA-NAUSEA/V Verified 06/15/23 10:02 OMITING sumatriptan [From IMITREX] Allergy Unknown NA-HALLUCIN Verified 06/15/23 10:02 [facility] Disclaimer: The information contained in this section may have been updated after the patient was seen, as this information can be updated by other users. Medical History Abnormal electrocardiogram [ECG] [EKG] Acute blood loss anemia COVID-19 Generalized anxiety disorder Recurrent major depression resistant to treatment Anxiety and depression Surgical History S/P oophorectomy left S/P exploratory laparotomy Family History Other Family history of cancer Family history of hypertension Social History Smoking Status: Current every day smoker alcohol intake: former substance use type: denies use current occupational status: employed Travel in the last 8 weeks: None number of children: 1 ROS Obtained: Yes All systems reviewed & no additional complaints except as documented Physical Exam General General appearance: alert and in no apparent distress Head Head exam: atraumatic and normocephalic Eye Eye exam: Present normal appearance, PERRL and EOMI ENT ENT exam: Present normal oropharynx and mucous membranes moist Neck Neck exam: Present full ROM; Absent meningismus Respiratory Respiratory exam: Absent respiratory distress, wheezes, stridor or accessory muscle use Cardiovascular Cardiovascular exam: Present normal rhythm Abdominal Exam Abdominal exam: Present soft; Absent distention, tenderness, guarding, rebound or rigidity Extremities Exam Extremities exam: Present normal inspection, full ROM, tenderness (Tenderness to palpation over the lateral aspect of the right knee. Patient able to extend and flex her knee however with pain. Negative Isablela's test. Negative anterior and posterior drawer test.) and normal capillary refill; Absent calf tenderness Neurological Exam Neurological exam: Present alert, oriented X3 and CN II-XII intact; Absent motor sensory deficit Psychiatric Psychiatric exam: Present normal affect and normal mood Skin Skin exam: Present warm and dry Medical Decision Making Medical Records Medical records reviewed: Yes I reviewed the patient's medical records. Pito Inquiry Pt receiving controlled substance: No Pito was queried for this patient: No Vital Signs: 07/26/23 19:32 Temperature 98.4 F Temperature Source Oral Pulse Rate [Right Radial] 103 H Respiratory Rate 20 Blood Pressure [Right Arm] 141/80 H Blood Pressure Mean [Right Arm] 100 02 Sat by Pulse Oximetry 97 Oxygen Delivery Method Room Air Orders (Tests/Meds): ED MEDICATIONS Generic Name Dose Route Start Last Admin Trade Name Freq PRN Reason Stop Dose Admin Lidocaine 1 each 07/26/23 20:00 07/26/23 20:04 Lidocaine 5% Transdermal Patch TP 08/25/23 19:59 1 each Q24H LESLIE Administration Discontinued Medications Generic Name Dose Route Start Last Admin Trade Name Freq PRN Reason Stop Dose Admin Acetaminophen 1,000 mg 07/26/23 19:57 07/26/23 20:04 Acetaminophen 500mg Tab PO 07/26/23 19:58 1,000 mg ONCE ONE Administration Methocarbamol 750 mg 07/26/23 19:58 07/26/23 20:04 Methocarbamol 500mg Tablet PO 07/26/23 19:59 750 mg ONCE ONE Administration ORDERS Category Date Time Status Knee XR right 3 views [XR knee RT 3V] Stat Exams 07/26/23 19:57 Completed Medical Decision Narrative: 33-year-old female with past medical history significant for JOY, asthma, hypothyroidism, GERD, ADHD, presents today for evaluation concerning right knee pain onset yesterday. 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 She states that since that time she has felt a grinding like sensation when walking. She has still been able to ambulate however with some difficulty secondary to pain. On assessment she was hemodynamically stable and in no acute distress. Afebrile. She did have tenderness palpation of the right knee laterally. Antalgic gait secondary to pain however able to ambulate. Negative Isabella's test. Negative anterior and posterior drawer test. Palpable DP pulses. Sensation intact. Differential diagnoses include but limited to fracture, effu emily, ligamentous injury, meniscus injury, among others. I did give patient Tylenol, ibuprofen and Robaxin to assist with her symptoms. Also applied a lidocaine patch. X-ray imaging revealed no acute bony abnormalities on my informal interpretation. Radiology report confirmed. On reassessment she remains medically stable and in no acute distress. I discussed ED workup and results and current plan to discharge with orthopedic referral. Will send prescriptions for lidocaine patches and 800 mg ibuprofen. Instructed patient concerning RICE instructions. She verbalized understanding and agreement. Provided with return ED precautions. Subsequently discharged home in medically stable and in no acute distress. Critical Care Critical Care Time Critical Care Time: No
[2023-07-26] MEDS: METHOCARBAMOL 500MG TABLET 750 MG PO (20:04)
[2023-07-26] MEDS: ACETAMINOPHEN 500MG TAB 1000 MG PO (20:04)
[2023-07-26] MEDS: LIDOCAINE 5% TRANSDERMAL PATCH 1 EACH TP (20:04)
[2023-07-26 20:46] VITALS: BP 130/78; PULSE 90; RESP 20; TEMP 36.7; O2SAT 98
== END 2023-07-26 20:47 | disposition home or self-care (01) ==
PROVIDERS: Emergency Provider Emergency Medicine; PCP Physician Assistant
DX: M25.561 Pain in right knee (principal); E03.9 Hypothyroidism, unspecified; K21.9 Gastro-esophageal reflux disease without esophagitis; F41.1 Generalized anxiety disorder; F33.9 Major depressive disorder, recurrent, unspecified; F17.210 Nicotine dependence, cigarettes, uncomplicated
CPT/HCPCS: 73562; 99283

== ENCOUNTER 2023-08-09 18:23 | Emergency (ER) | payer OTHER, SELFPAY ==
[2023-08-09 18:25] VITALS: BP 155/84; PULSE 109; RESP 16; TEMP 36.9; O2SAT 100; BMI 37.5
--- NOTE | 2023-08-09 18:32 | ED_ITS ---
Discharge Plan Disposition Patient Disposition: Home, Self-Care Condition: Good Prescriptions Prescriptions: New metronidazole 500 mg tablet 500 mg PO BID 7 Days Qty: 14 0RF cephalexin 500 mg capsule 500 mg PO TID 7 Days Qty: 21 0RF ondansetron 4 mg Tablet,Disintegrating 4 mg PO Q8H PRN (Reason: Nausea) Qty: 12 0RF phenazopyridine [Pyridium] 200 mg tablet 200 mg PO Q8H 2 Days Qty: 6 0RF No Action tizanidine [Zanaflex] 4 mg capsule 4 mg PO BID PRN bupropion HCl [Wellbutrin XL] 300 mg tablet extended release 24 hr 300 mg PO DAILY Qty: 90 0RF Rx Instructions: take daily with 150mg tablet; dose is 450mg daily bupropion HCl [Wellbutrin XL] 150 mg tablet extended release 24 hr 150 mg PO DAILY Qty: 90 0RF Rx Instructions: take daily with 300mg tablet; dose is 450mg daily buspirone 10 mg tablet See Rx Instructions .ROUTE .COMPLEX Qty: 120 2RF Dose Instruction: TAKE TWO TABLETS BY MOUTH THREE TIMES DAILY FOR ANXIETY Rx Instructions: TAKE TWO TABLETS BY MOUTH THREE TIMES DAILY FOR ANXIETY lamotrigine 200 mg tablet 200 mg PO HS Qty: 90 0RF trazodone 100 mg tablet 200 mg PO HS Qty: 90 0RF epinephrine 0.3 mg/0.3 mL auto-injector 1 mg SQ NEEDED PRN (Reason: Allergic Reaction) Patient Comments: INJECT THE CONTENTS OF 1 AUTO-INJECTOR INTRAMUSCULARLY ONCE NEEDED FOR ANAPHYLAXIS REACTION -may REPEAT in 5 TO 15 minutes if needed - call 911 AFTER USE - omeprazole 40 mg capsule,delayed release(DR/EC) See Rx Instructions .ROUTE .COMPLEX Qty: 90 2RF Dose Instruction: TAKE ONE CAPSULE BY MOUTH EVERY DAY FOR stomach Rx Instructions: TAKE ONE CAPSULE BY MOUTH EVERY DAY FOR stomach levothyroxine 100 mcg tablet See Rx Instructions .ROUTE .COMPLEX Qty: 90 2RF Dose Instruction: TAKE ONE TABLET BY MOUTH EVERY DAY FOR thyroid Rx Instructions: TAKE ONE TABLET BY MOUTH EVERY DAY FOR thyroid montelukast 10 mg tablet See Rx Instructions .ROUTE .COMPLEX Qty: 90 2RF Dose Instruction: TAKE ONE TABLET BY MOUTH EVERY EVENING Rx Instructions: TAKE ONE TABLET BY MOUTH EVERY EVENING famotidine 20 mg tablet 20 mg PO DAILY Qty: 90 1RF hydroxyzine HCl 25 mg tablet 25 mg PO BID PRN (Reason: itching) Qty: 180 1RF gabapentin 100 mg capsule 200 mg PO TID Qty: 180 2RF kqqconihyx-dkqtvezfrbnrj-udex 50-325-40 mg tablet 1 tab PO BIDP PRN (Reason: Migraine Headache) Qty: 20 0RF ondansetron 4 mg tablet,disintegrating See Rx Instructions .ROUTE .COMPLEX Qty: 30 2RF Dose Instruction: DISSOLVE ONE TABLET in MOUTH EVERY 8 HOURS NEEDED FOR NAUSEA Rx Instructions: DISSOLVE ONE TABLET in MOUTH EVERY 8 HOURS NEEDED FOR NAUSEA atorvastatin [Lipitor] 10 mg tablet 10 mg PO HS Qty: 30 2RF ergocalciferol (vitamin D2) 1,250 mcg (50,000 unit) capsule 1,250 mcg PO WEEKLY Qty: 7 2RF dextroamphetamine-amphetamine [Adderall XR] 15 mg capsule,extended release 24hr 15 mg PO DAILY Qty: 30 0RF lorazepam [Ativan] 1 mg tablet 1 mg PO TIDP PRN (Reason: anxiety) Qty: 90 0RF albuterol sulfate 8.5 GM HFA aerosol inhaler 2 puffs inhalation Q6HP PRN (Reason: Shortness Of Breath) 30 Days Qty: 1 5RF lidocaine 5 % adhesive patch,medicated 1 patch topical Q24H PRN (Reason: pain) 5 Days Qty: 15 0RF Rx Instructions: leave on most painful area for up to 12 hrs ibuprofen [IBU] 800 mg tablet 800 mg PO Q6H PRN (Reason: pain) 5 Days Qty: 20 0RF Referrals Follow up/Referrals: Alvina Toro PA [Primary Care Provider] - See instructions Activity Restrictions/Add. Instructions Additional Instructions/Restrictions: Drink plenty of fluids. Take tylenol or ibuprofen for pain or fever. Take the medications as directed. Follow up with your regular doctor. GO TO THE ER FOR ANY WORSENING SYMPTOMS Do not drink any alcohol until you have been off the metronidazole (flagyl) for 2 days. The pyridium will make your urine turn orange, this is an expected side effect. It will stain your clothes if it comes into contact with them. We will culture the urine. That will tell what bacteria is causing your infection and which antibiotics will treat it best. Sometimes the first antibiotic we prescribe turns out to not work against different bacteria. So, make sure you follow up within 3 days if you are not getting better. Clinical Impressions Clinical Impression: UTI (urinary tract infection) Instructions Patient Instructions: DI for Urinary Tract Infection (UTI), Ondansetron, Cephalexin, Metronidazole Discharge ED Provider: Fabian Padilla [facility] General Stated complaint: possible uti Time Seen by Provider: 08/09/23 18:32 History of Present Illness Provider Complaint: She states that since yesterday she has had dysuria, urinary frequency, low back pain, and vaginal discharge. Related Data Home Medications Medication Instructions Recorded Confirmed epinephrine 0.3 mg/0.3 mL 1 mg SQ NEEDED PRN Allergic 05/03/23 07/27/23 injection, auto-injector Reaction tizanidine 4 mg capsule (Zanaflex) 4 mg PO BID PRN 06/01/23 07/27/23 Previous Rx's Medication Instructions Recorded albuterol sulfate 90 mcg/actuation 2 puffs inhalation Q6HP PRN 07/14/21 aerosol inhaler Shortness Of Breath 30 days #1 ea frmwiqedez-sdmtgegkmoert-sirxjfal 1 tab PO BIDP PRN Migraine 07/28/22 50 mg-325 mg-40 mg tablet Headache #20 tabs ondansetron 4 mg disintegrating See Rx Instructions .Route 02/01/23 tablet .COMPLEX #30 tabs famotidine 20 mg tablet 20 mg PO DAILY #90 tabs 05/03/23 gabapentin 100 mg capsule 200 mg (2 x 100 mg) PO TID nerve 05/03/23 pain #180 caps hydroxyzine HCl 25 mg tablet 25 mg PO BID PRN itching #180 tabs 05/03/23 levothyroxine 100 mcg tablet See Rx Instructions .Route 05/03/23 .COMPLEX #90 tabs montelukast 10 mg tablet See Rx Instructions .Route 05/03/23 .COMPLEX #90 tabs omeprazole 40 mg capsule,delayed See Rx Instructions .Route 05/03/23 release .COMPLEX #90 caps atorvastatin 10 mg tablet (Lipitor) 10 mg PO HS #30 tabs 05/04/23 ergocalciferol (vitamin D2) 1,250 1,250 mcg PO WEEKLY #7 caps 05/04/23 mcg (50,000 unit) capsule bupropion HCl 150 mg 24 hr tablet, 150 mg PO DAILY Depression #90 tabs 05/05/23 extended release (Wellbutrin XL) bupropion HCl 300 mg 24 hr tablet, 300 mg PO DAILY depression #90 05/05/23 extended release (Wellbutrin XL) tabs buspirone 10 mg tablet See Rx Instructions .Route 05/05/23 .COMPLEX #120 tabs lamotrigine 200 mg tablet 200 mg PO HS bipolar #90 tabs 05/05/23 trazodone 100 mg tablet 200 mg (2 x 100 mg) PO HS sleep 05/05/23 #90 tabs dextroamphetamine-amphetamine ER 15 mg PO DAILY ADHD #30 caps 06/22/23 15 mg 24hr capsule,extend release (Adderall XR) lorazepam 1 mg tablet (Ativan) 1 mg PO TIDP PRN anxiety #90 tabs 06/22/23 ibuprofen 800 mg tablet (IBU) 800 mg PO Q6H PRN pain 5 days #20 07/26/23 tabs lidocaine 5 % topical patch 1 patch topical Q24H PRN pain 5 07/26/23 days #15 ea cephalexin 500 mg capsule 500 mg PO TID 7 days #21 caps 08/09/23 metronidazole 500 mg tablet 500 mg PO BID 7 days #14 tabs 08/09/23 ondansetron 4 mg disintegrating 4 mg PO Q8H PRN Nausea #12 tabs 08/09/23 tablet phenazopyridine 200 mg tablet 200 mg PO Q8H 2 days #6 tabs 08/09/23 (Pyridium) Allergies Allergy/AdvReac Type Severity Reaction Status Date / Time oseltamivir [From TAMIFLU] Allergy Unknown NA-NAUSEA/V Verified 08/09/23 18:35 OMITING sumatriptan [From IMITREX] Allergy Unknown NA-HALLUCIN Verified 08/09/23 18:35 ATIONS PFS PFS Disclaimer: The information contained in this section may have been updated after the patient was seen, as this information can be updated by other users. Medical History Abnormal electrocardiogram [ECG] [EKG] Acute blood loss anemia COVID-19 Generalized anxiety disorder Recurrent major depression resistant to treatment Anxiety and depression Surgical History S/P oophorectomy left S/P exploratory laparotomy Family History Other Family history of cancer Family history of hypertension Social History Smoking Status: Current every day smoker alcohol intake: former substance use type: denies use current occupational status: employed Travel in the last 8 weeks: None number of children: 1 ROS Obtained: Yes All systems reviewed & no additional complaints except as documented Constitutional Constitutional: Reports system reviewed and no additional complaints, except as documented, Denies chills and Denies fever(s) Eyes Eyes: Denies eye discharge ENT Ears, Nose, Mouth, and Throat: Denies dysphagia, Denies sore throat and Denies throat swelling Cardiovascular Cardiovascular: Denies chest pain and Denies dyspnea Respiratory Respiratory: Denies chest congestion, Denies cough and Denies dyspnea Gastrointestinal Gastrointestingal: Denies abdominal pain, constipation, diarrhea, dysphagia, nausea or vomiting Genitourinary Female Genitourinary: Reports as per HPI, Reports dysuria, Reports urinary frequency, Denies urinary incontinence, Reports urinary hesitancy and Reports urinary urgency Musculoskeletal Musculoskeletal: Denies arthralgias and Reports back pain Integumentary/Breasts Skin/Breast: Denies rash Neurologic Neurologic: Denies paresthesias Allergic/Immunologic Allergic/Immunologic: Denies throat swelling Physical Exam General General appearance: alert and in no apparent distress Head Head exam: atraumatic and normocephalic Eye Eye exam: Present normal appearance, PERRL and EOMI ENT ENT exam: Present normal exam, mucous membranes moist, TM's normal bilaterally and normal external ear exam Neck Neck exam: Present normal inspection, full ROM and trachea midline; Absent tenderness, meningismus or lymphadenopathy Chest Chest inspection: Present normal inspection and symmetric chest wall rise; Absent tenderness Respiratory Respiratory exam: Present normal lung sounds bilaterally; Absent respiratory distress, wheezes or stridor Cardiovascular Cardiovascular exam: Present regular rate, normal rhythm and normal heart sounds Abdominal Exam Abdominal exam: Present soft and normal bowel sounds; Absent distention, tenderness, guarding, rebound, rigidity, incision, psoas sign, obturator sign, heel tap sign, Mckeon's sign, Rovsing's sign or tenderness at McBurney's Point Extremities Exam Extremities exam: Present normal inspection, full ROM and normal capillary refill; Absent tenderness, edema, joint swelling, calf tenderness or cyanosis Back Exam Back exam: Present normal inspection and full ROM; Absent tenderness, CVA tenderness (R) or CVA tenderness (L) Neurological Exam Neurological exam: Present alert, oriented X3 and normal gait Psychiatric Psychiatric exam: Present normal affect and normal mood Skin Skin exam: Present warm, dry, intact and normal color Lymphatic Lymphatic Findings: no adenopathy Medical Decision Making Medical Records Medical records reviewed: No I reviewed the patient's medical records. Pito Inquiry Pt receiving controlled substance: No Lab Data Lab results reviewed: Yes I reviewed the patient's lab results.
[2023-08-09 18:34] LABS: Apearance,Urine Cloudy (Clear); Color,Urine Yellow (Yellow); Protein,Urine 3+ (Negative)
[2023-08-09 18:35] LABS: Bilirubin,Urine Negative (Negative); Blood, Urine 3+ (Negative); Glucose,Urine (UA) Negative (Negative); Ketones,Urine Negative (Negative); UTC Leukocyte Esterase,Urine 1+ (Negative); UTC Nitrate,Urine Negative (Negative); Urobilinogen,Urine 0.2 EU/dl (0.2)
[2023-08-09] MEDS: PHENAZOPYRIDINE 200MG TABLET 200 MG PO (19:16)
[2023-08-09] MEDS: cephALEXin 500MG CAPSULE 500 MG PO (19:17)
[2023-08-09] MEDS: metroNIDAZOLE 500 MG TABLET PO (19:17)
[2023-08-09] MEDS: ONDANSETRON 4MG ODT 4 MG SL (19:17)
[2023-08-09 19:21] VITALS: BP 155/84; PULSE 109; RESP 16; TEMP 36.9; O2SAT 100
== END 2023-08-09 19:21 | disposition home or self-care (01) ==
PROVIDERS: Emergency Provider Nurse Practitioner Family; PCP Physician Assistant
DX: N39.0 Urinary tract infection, site not specified (principal); B96.29 Other Escherichia coli [E. coli] as the cause of diseases classified elsewhere; M54.59 Other low back pain; R30.0 Dysuria; F17.210 Nicotine dependence, cigarettes, uncomplicated
CPT/HCPCS: 81003; 87086; 87088; 87186; 99212; 99214; G0463

== ENCOUNTER 2023-10-25 13:53 | Emergency (ER) | payer OTHER, SELFPAY ==
[2023-10-25 14:30] VITALS: BP 138/72; PULSE 86; RESP 18; TEMP 36.9; O2SAT 100; BMI 34.9
--- NOTE | 2023-10-25 15:12 | ED_ITS ---
Discharge Plan Disposition Patient Disposition: Home, Self-Care Condition: Good Prescriptions Prescriptions: New etodolac 200 mg capsule 200 mg PO Q8H PRN (Reason: pain) Qty: 20 0RF prednisone 20 mg tablet 20 mg PO BID 5 Days Qty: 10 0RF No Action vpdzdmsruu-qjcxzcnhanfkm-jhoh 50-325-40 mg tablet 1 tab PO BIDP PRN (Reason: Migraine Headache) Qty: 20 0RF Nurtec ODT 75 mg tablet,disintegrating 75 mg PO ONCE PRN (Reason: migraine headache) Qty: 16 0RF ergocalciferol (vitamin D2) 1,250 mcg (50,000 unit) capsule 1,250 mcg PO WEEKLY Qty: 14 3RF famotidine 20 mg tablet 20 mg PO DAILY Qty: 90 1RF gabapentin 100 mg capsule 200 mg PO TID Qty: 180 2RF hydroxyzine HCl 25 mg tablet 25 mg PO BID PRN (Reason: itching) Qty: 180 1RF levothyroxine 100 mcg tablet See Rx Instructions .ROUTE .COMPLEX Qty: 90 2RF Dose Instruction: TAKE ONE TABLET BY MOUTH EVERY DAY FOR thyroid Rx Instructions: TAKE ONE TABLET BY MOUTH EVERY DAY FOR thyroid montelukast 10 mg tablet See Rx Instructions .ROUTE .COMPLEX Qty: 90 2RF Dose Instruction: TAKE ONE TABLET BY MOUTH EVERY EVENING Rx Instructions: TAKE ONE TABLET BY MOUTH EVERY EVENING omeprazole 40 mg capsule,delayed release(DR/EC) See Rx Instructions .ROUTE .COMPLEX Qty: 90 2RF Dose Instruction: TAKE ONE CAPSULE BY MOUTH EVERY DAY FOR stomach Rx Instructions: TAKE ONE CAPSULE BY MOUTH EVERY DAY FOR stomach ondansetron 8 mg tablet,disintegrating 8 mg PO Q8H PRN (Reason: nausea and vomiting) Qty: 30 0RF tizanidine [Zanaflex] 4 mg capsule 4 mg PO BID PRN (Reason: muscle spasticity) Qty: 180 0RF trazodone 100 mg tablet 200 mg PO HS Qty: 180 1RF bupropion HCl [Wellbutrin XL] 150 mg tablet extended release 24 hr 150 mg PO DAILY Qty: 90 0RF Rx Instructions: take daily with 300mg tablet; dose is 450mg daily bupropion HCl [Wellbutrin XL] 300 mg tablet extended release 24 hr 300 mg PO DAILY Qty: 90 0RF Rx Instructions: take daily with 150mg tablet; dose is 450mg daily buspirone 10 mg tablet See Rx Instructions .ROUTE .COMPLEX Qty: 120 2RF Dose Instruction: TAKE TWO TABLETS BY MOUTH THREE TIMES DAILY FOR ANXIETY Rx Instructions: TAKE TWO TABLETS BY MOUTH THREE TIMES DAILY FOR ANXIETY dextroamphetamine-amphetamine [Adderall XR] 15 mg capsule,extended release 24hr 15 mg PO DAILY Qty: 30 0RF epinephrine 0.3 mg/0.3 mL auto-injector 1 mg SQ NEEDED PRN (Reason: Allergic Reaction) Patient Comments: INJECT THE CONTENTS OF 1 AUTO-INJECTOR INTRAMUSCULARLY ONCE NEEDED FOR ANAPHYLAXIS REACTION -may REPEAT in 5 TO 15 minutes if needed - call 911 AFTER USE - omeprazole 40 mg capsule,delayed release(DR/EC) See Rx Instructions .ROUTE .COMPLEX Qty: 90 2RF Dose Instruction: TAKE ONE CAPSULE BY MOUTH EVERY DAY FOR stomach Rx Instructions: TAKE ONE CAPSULE BY MOUTH EVERY DAY FOR stomach levothyroxine 100 mcg tablet See Rx Instructions .ROUTE .COMPLEX Qty: 90 2RF Dose Instruction: TAKE ONE TABLET BY MOUTH EVERY DAY FOR thyroid Rx Instructions: TAKE ONE TABLET BY MOUTH EVERY DAY FOR thyroid montelukast 10 mg tablet See Rx Instructions .ROUTE .COMPLEX Qty: 90 2RF Dose Instruction: TAKE ONE TABLET BY MOUTH EVERY EVENING Rx Instructions: TAKE ONE TABLET BY MOUTH EVERY EVENING famotidine 20 mg tablet 20 mg PO DAILY Qty: 90 1RF hydroxyzine HCl 25 mg tablet 25 mg PO BID PRN (Reason: itching) Qty: 180 1RF sitllgbsqt-vhdgsbfmkibex-npua 50-325-40 mg tablet 1 tab PO BIDP PRN (Reason: Migraine Headache) Qty: 20 0RF ondansetron 4 mg tablet,disintegrating See Rx Instructions .ROUTE .COMPLEX Qty: 30 2RF Dose Instruction: DISSOLVE ONE TABLET in MOUTH EVERY 8 HOURS NEEDED FOR NAUSEA Rx Instructions: DISSOLVE ONE TABLET in MOUTH EVERY 8 HOURS NEEDED FOR NAUSEA ergocalciferol (vitamin D2) 1,250 mcg (50,000 unit) capsule 1,250 mcg PO WEEKLY Qty: 7 2RF trazodone 100 mg tablet 200 mg PO HS Qty: 90 0RF lamotrigine 200 mg tablet 200 mg PO HS Qty: 90 0RF lorazepam [Ativan] 1 mg tablet 1 mg PO TIDP PRN (Reason: anxiety) Qty: 90 0RF gabapentin 100 mg capsule See Rx Instructions .ROUTE .COMPLEX Qty: 180 2RF Dose Instruction: TAKE TWO CAPSULES BY MOUTH THREE TIMES DAILY FOR nerve pain MAY CAUSE DROWSINESS Rx Instructions: TAKE TWO CAPSULES BY MOUTH THREE TIMES DAILY FOR nerve pain MAY CAUSE DROWSINESS albuterol sulfate 8.5 GM HFA aerosol inhaler 2 puffs inhalation Q6HP PRN (Reason: Shortness Of Breath) 30 Days Qty: 1 5RF lidocaine 5 % adhesive patch,medicated 1 patch topical Q24H PRN (Reason: pain) 5 Days Qty: 15 0RF Rx Instructions: leave on most painful area for up to 12 hrs ibuprofen [IBU] 800 mg tablet 800 mg PO Q6H PRN (Reason: pain) 5 Days Qty: 20 0RF metronidazole 500 mg tablet 500 mg PO BID 7 Days Qty: 14 0RF ondansetron 4 mg Tablet,Disintegrating 4 mg PO Q8H PRN (Reason: Nausea) Qty: 12 0RF phenazopyridine [Pyridium] 200 mg tablet 200 mg PO Q8H 2 Days Qty: 6 0RF Referrals Follow up/Referrals: Alvina Toro PA [Primary Care Provider] - See instructions Activity Restrictions/Add. Instructions Additional Instructions/Restrictions: *Etodolac xavi 8 hours with meal as needed for pain/inflammation *Remember you had a Toradol shot in the clinic today, which is similar to Etodolac so do not start until later tonight *Not additional anti-inflammatory like Ibuprofen motrin, aleve, advil with the above amount of Etodolac You can still take Tylenol every 4 hours as needed if you need something else for pain *Ice 20 minutes every 2 hours for the first 48 hours after the initial injury followed by moist heat every 20 minutes 3-4 times a day to affected area *Muscle relaxer as you was prescribed as needed for muscle spasms but remember, it WILL cause drowsiness You cannot take it and drive, operate machinery or care for small children. *Keep this area active, no movement leads to more stiffness, However take it easy and avoid heavy lifting pushing or pulling *Follow up with you family doctor if no improvement for further treatment\ Start oral steriods tomorrow Clinical Impressions Clinical Impression: Cervical radicular pain Instructions Patient Instructions: DI for Chronic Pain -- Adult, Etodolac Print Language Print Language: Upper Sorbian Discharge ED Provider: Marge Mcguire [facility] [place] HPI General Stated complaint: neck pain Mode of Arrival: Ambulatory Source of Information: Patient Limitations: No Limitations Time Seen by Provider: 10/25/23 15:12 Description of Symptoms (Recalled from Triage Doc. by RN): PATIENT C/O NECK PAIN THAT RADIATES INTO RIGHT SHOULDER AND IS WORSE WHEN SHE TURNS HER HEAD TO THE LEFT HEENT Symptoms (Recalled from RN notes): No Resp Symptoms (Recalled from RN notes): No Skin Symptoms (Recalled from RN notes): No MS Symptoms (Recalled from RN notes): Yes Functional Status (Recalled from RN notes): WNL History of Present Illness Provider Complaint: Patient states that for the last couple of days she has been having pain in her neck that radiates down to right shoulder that is worse with movement states she has hx of buldging disk and not sure if she may have slept wrong or something to make it flare up States when this happens she usually gets a steriod shot and it helps Related Data Home Medications ?Medication ?Instructions ?Recorded ?Confirmed epinephrine 0.3 mg/0.3 mL 1 mg SQ NEEDED PRN Allergic 05/03/23 09/17/23 injection, auto-injector Reaction Previous Rx's ?Medication ?Instructions ?Recorded albuterol sulfate 90 mcg/actuation 2 puffs inhalation Q6HP PRN 07/14/21 aerosol inhaler Shortness Of Breath 30 days #1 ea lwoqbugttq-jgqmffwkmprxr-dmtcutgx 1 tab PO BIDP PRN Migraine 07/28/22 50 mg-325 mg-40 mg tablet Headache #20 tabs ondansetron 4 mg disintegrating See Rx Instructions .Route 02/01/23 tablet .COMPLEX #30 tabs famotidine 20 mg tablet 20 mg PO DAILY #90 tabs 05/03/23 hydroxyzine HCl 25 mg tablet 25 mg PO BID PRN itching #180 tabs 05/03/23 levothyroxine 100 mcg tablet See Rx Instructions .Route 05/03/23 .COMPLEX #90 tabs montelukast 10 mg tablet See Rx Instructions .Route 05/03/23 .COMPLEX #90 tabs omeprazole 40 mg capsule,delayed See Rx Instructions .Route 05/03/23 release .COMPLEX #90 caps ergocalciferol (vitamin D2) 1,250 1,250 mcg PO WEEKLY #7 caps 05/04/23 mcg (50,000 unit) capsule ibuprofen 800 mg tablet (IBU) 800 mg PO Q6H PRN pain 5 days #20 07/26/23 tabs lidocaine 5 % topical patch 1 patch topical Q24H PRN pain 5 07/26/23 days #15 ea metronidazole 500 mg tablet 500 mg PO BID 7 days #14 tabs 08/09/23 ondansetron 4 mg disintegrating 4 mg PO Q8H PRN Nausea #12 tabs 08/09/23 tablet phenazopyridine 200 mg tablet 200 mg PO Q8H 2 days #6 tabs 08/09/23 (Pyridium) lamotrigine 200 mg tablet 200 mg PO HS bipolar #90 tabs 09/13/23 lorazepam 1 mg tablet (Ativan) 1 mg PO TIDP PRN anxiety #90 tabs 09/13/23 trazodone 100 mg tablet 200 mg (2 x 100 mg) PO HS sleep 09/13/23 #90 tabs zviwlgadov-xxqhuoeuxltsw-utobhaql 1 tab PO BIDP PRN Migraine 09/14/23 50 mg-325 mg-40 mg tablet Headache #20 tabs ergocalciferol (vitamin D2) 1,250 1,250 mcg PO WEEKLY #14 caps 09/14/23 mcg (50,000 unit) capsule famotidine 20 mg tablet 20 mg PO DAILY #90 tabs 09/14/23 gabapentin 100 mg capsule 200 mg (2 x 100 mg) PO TID nerve 09/14/23 pain #180 caps hydroxyzine HCl 25 mg tablet 25 mg PO BID PRN itching #180 tabs 09/14/23 levothyroxine 100 mcg tablet See Rx Instructions .Route 09/14/23 .COMPLEX #90 tabs montelukast 10 mg tablet See Rx Instructions .Route 09/14/23 .COMPLEX #90 tabs omeprazole 40 mg capsule,delayed See Rx Instructions .Route 09/14/23 release .COMPLEX #90 caps ondansetron 8 mg disintegrating 8 mg PO Q8H PRN nausea and 09/14/23 tablet vomiting #30 tabs rimegepant 75 mg disintegrating 75 mg PO ONCE PRN migraine 09/14/23 tablet (Nurtec ODT) headache #16 tabs tizanidine 4 mg capsule (Zanaflex) 4 mg PO BID PRN muscle spasticity 09/14/23 #180 caps trazodone 100 mg tablet 200 mg (2 x 100 mg) PO HS sleep 09/14/23 #180 tabs gabapentin 100 mg capsule See Rx Instructions .Route 09/15/23 .COMPLEX #180 caps bupropion HCl 150 mg 24 hr tablet, 150 mg PO DAILY Depression #90 tabs 09/17/23 extended release (Wellbutrin XL) bupropion HCl 300 mg 24 hr tablet, 300 mg PO DAILY depression #90 09/17/23 extended release (Wellbutrin XL) tabs buspirone 10 mg tablet See Rx Instructions .Route 09/17/23 .COMPLEX #120 tabs dextroamphetamine-amphetamine ER 15 mg PO DAILY ADHD #30 caps 09/17/23 15 mg 24hr capsule,extend release (Adderall XR) etodolac 200 mg capsule 200 mg PO Q8H PRN pain #20 caps 10/25/23 prednisone 20 mg tablet 20 mg PO BID 5 days #10 tabs 10/25/23 Allergies Allergy/AdvReac Type Severity Reaction Status Date / Time oseltamivir [From TAMIFLU] Allergy Unknown NA-NAUSEA/V Verified 09/14/23 10:18 OMITING sumatriptan [From IMITREX] Allergy Unknown NA-HALLUCIN Verified 09/14/23 10:18 ATIONS Worker's Comp Is this a Worker's Comp case?: No [facility] Disclaimer: The information contained in this section may have been updated after the patient was seen, as this information can be updated by other users. Medical History Abnormal electrocardiogram [ECG] [EKG] Acute blood loss anemia COVID-19 Generalized anxiety disorder Recurrent major depression resistant to treatment Anxiety and depression Surgical History S/P oophorectomy left S/P exploratory laparotomy Family History Other Family history of cancer Family history of hypertension Social History Smoking Status: Current every day smoker alcohol intake: former substance use type: denies use current occupational status: employed Travel in the last 8 weeks: None number of children: 1 ROS Obtained: Yes All systems reviewed & no additional complaints except as documented and Yes Systems reviewed as appropriate & no additional complaints except as documented Constitutional Constitutional: Reports system reviewed and no additional complaints, except as documented, Reports as per HPI, Denies body ache, Denies chills, Denies fever(s) and Denies headache(s) ENT Ears, Nose, Mouth, and Throat: Reports system reviewed and no additional complaints, except as documented, Reports as per HPI and Denies headache(s) Cardiovascular Cardiovascular: Reports system reviewed and no additional complaints, except as documented and Reports as per HPI Respiratory Respiratory: Reports system reviewed and no additional complaints, except as documented and Reports as per HPI Musculoskeletal Musculoskeletal: Reports system reviewed and no additional complaints, except as documented, Reports as per HPI and Reports other Comments: muscle spasm like pain in neck that radiates to right shoulder worse with movement and turning head to the left Neurologic Neurologic: Denies headache(s) Physical Exam General General appearance: alert and in no apparent distress ENT ENT exam: Present mucous membranes moist Chest Chest inspection: Present normal inspection and symmetric chest wall rise; Absent tenderness Respiratory Respiratory exam: Present normal lung sounds bilaterally; Absent respiratory distress or wheezes Cardiovascular Cardiovascular exam: Present regular rate, normal rhythm and normal heart sounds Back Exam Back exam: Present tenderness Back 1 view image: 2 1. reports tenderness with palpation, muscle spasms noted Denies known injury Neurological Exam Neurological exam: Present alert, oriented X3 and normal gait Medical Decision Making Pito Inquiry Pt receiving controlled substance: No Pito was queried for this patient: No Vital Signs: 10/25/23 14:30 Temperature 98.4 F Temperature Source Oral Pulse Rate [Left Brachial] 86 Respiratory Rate 18 Blood Pressure [Left Arm] 138/72 Blood Pressure Mean [Left Arm] 94 Blood Pressure Source [Left Arm] Automatic Cuff Blood Pressure Position [Left Arm] Sitting 02 Sat by Pulse Oximetry 100 Oxygen Delivery Method Room Air
[2023-10-25] MEDS: KETOROLAC 60MG/2ML VIAL 60 MG IM (15:27)
[2023-10-25] MEDS: DEXAMETHASONE 4MG/ML 1ML VIAL 4 MG IM (15:27)
[2023-10-25 15:36] VITALS: BP 138/72; PULSE 86; RESP 18; TEMP 36.9; O2SAT 100
== END 2023-10-25 15:40 | disposition home or self-care (01) ==
PROVIDERS: Emergency Provider Nurse Practitioner; PCP Physician Assistant
DX: M54.12 Radiculopathy, cervical region (principal); M54.2 Cervicalgia; M62.838 Other muscle spasm
CPT/HCPCS: 96372; 99212; 99214; G0463; J1100; J1885

== ENCOUNTER 2023-12-16 11:23 | Outpatient (CLI) | payer OTHER, SELFPAY ==
[2023-12-16 11:42] LABS: Basophils # 0.1 K/mm3 (0-0.2); Basophils % 0.5 % (0.1-2.0); Eosinophils # 0.2 K/mm3 (0.0-0.4); Eosinophils % 1.9 % (0.1-12.0); Hematocrit 40.8 % (37.0-47.0); Lymphocytes # 2.6 K/mm3 (0.7-4.5); Lymphocytes % 27.1 % (10-50); Mean Corpuscular HGB Conc 31.9 g/dL (31.8-35.4); Mean Corpuscular Hemoglobin 28.1 pg (27.0-31.2); Mean Corpuscular Volume 87.9 fl (81-99); Mean Platelet Volume 8.6 fl (7.4-10.4); Monocytes # 0.7 K/mm3 (0.1-1.0); Monocytes % 7.4 % (1.7-9.3); Neutrophils # 6.1 K/mm3 (1.8-7.8); Neutrophils % 63.1 % (37.0-80.0); Platelet Count 307 K/mm3 (142-424); Red Blood Count 4.64 M/mm3 (4.20-5.40); White Blood Count 9.6 K/mm3 (4.8-10.8)
[2023-12-16 12:35] LABS: Alanine Aminotransferase 28 U/L (12-78); Albumin Level 4.1 g/dl (3.5-5.0); Alkaline Phosphatase 72 U/L (38-126); Aspartate Amino Transferase 24 U/L (14-36); Bilirubin,Direct 0.2 mg/dl (0.0-0.4); Bilirubin,Indirect 0.1 mg/dL (0.0-0.9); Bilirubin,Total 0.3 mg/dl (0.2-1.3); Bilirubin,Unconjugated 0.2 mg/dL (0.0-1.1); Blood Urea Nitrogen 12 mg/dl (7-17); Calcium 9.8 mg/dl (8.4-10.2); Carbon Dioxide 26 mmol/L (22.0-30.0); Chloride 106 mmol/L (98-107); Chol/HDL Ratio 4.6 (1-3.5); Cholesterol 192 mg/dl (140-200); Estimated Glomerular Filt Rate 64 ml/min (>60); GFR (African American) 78 ML/MIN (>60); Glucose 88 mg/dl (74-100); HDL Cholesterol 42 mg/dl (40-60); Magnesium 2.1 mg/dl (1.6-2.3); Sodium 138 mmol/L (136-145); Total Protein,Serum 6.8 g/dl (6.3-8.2); Triglycerides 101 mg/dl (30-150); VLDL Cholesterol 20 mg/dL (0-40)
[2023-12-16 12:46] LABS: Direct LDL Cholesterol 124.92 mg/dL (100-129)
[2023-12-16 12:51] LABS: Free T4 (Free Thyroxine) 1.11 ng/dl (0.78-2.19)
[2023-12-16 13:06] LABS: Thyroid Stimulating Hormone 2.49 uIU/mL (0.465-4.68)
== END 2023-12-16 23:59 | disposition home or self-care (01) ==
LOC: LAB 11:24
PROVIDERS: PCP Physician Assistant; Visit Provider Nurse Practitioner
DX: R00.2 Palpitations (principal); R42 Dizziness and giddiness
CPT/HCPCS: 36415; 80048; 80061; 80076; 83735; 84439; 84443; 85025; 93270

== ENCOUNTER 2024-03-28 12:13 | Outpatient (CLI) | payer OTHER, SELFPAY ==
--- NOTE | 2024-03-28 15:31 | XR_ITS ---
FINAL REPORT CLINICAL HISTORY: right knee pain FINDINGS: AP, lateral and oblique views of the right knee were obtained. There is no prior exam for comparison. There is no acute osseous abnormality of the right knee. The joint space is preserved. The soft tissues are normal. There is no joint effusion. IMPRESSION: No acute osseous abnormality of the right knee. Reviewed, Interpreted and Dictated by Inés Garcia MD Transcribed by Dian Rodriguez Authenticated and . [facility]
== END 2024-03-28 23:59 | disposition home or self-care (01) ==
PROVIDERS: PCP Nurse Practitioner; Visit Provider Orthopaedic Surgery
DX: M25.561 Pain in right knee (principal)
CPT/HCPCS: 73562

== ENCOUNTER 2024-04-07 13:19 | Outpatient (CLI) | payer OTHER, SELFPAY ==
--- NOTE | 2024-04-07 13:19 | US_ITS ---
PROCEDURE: US TRANSVAGINAL CLINICAL INDICATION: Dyspareunia COMPARISON: CT ABDPELWO CT abdomen pelvis wo con from 07/13/[address] ABDOMEN PELVIS W CON from 06/04/2022 US US TRANSVAGINAL from 06/04/2022 FINDINGS: Transvaginal sonographic images of the pelvis were obtained. UTERUS: 8.7 cm x 6.0cmx 4.0cm with a combined endometrial thickness of 10.6mm. The endometrium appears trilaminar. There are multiple nabothian cysts within the cervix. LEFT OVARY: Surgically absent There is a small cyst in the left adnexa measuring 1.1 cm x 1.4 cm x 1.2 cm. RIGHT OVARY: 4.4cmx 3.2cmx2.9 cm with a volume of 21.3ml. There are multiple small peripheral follicles giving the ovary a polycystic appearance. Right ovary is seen and appears normal. Doppler flow to right ovary is seen. There is no fluid in the cul-de-sac. IMPRESSION: 1. Anteverted uterus normal in shape and size. The endometrium appears normal and trilaminar. 2. There are multiple nabothian cysts within the cervix. 3. The left ovary is surgically absent and the previously described 10 cm dermoid cyst is no longer present. There is a small, simple cyst in the left adnexa measuring 1.4 cm. 4. Right ovary is seen and appears polycystic. 5. No fluid in the cul-de-sac. Dictated by: Cal Meng MD 04/07/2024 19:11 Cal Meng MD in OV 04/07/2024 19:11
== END 2024-04-07 23:59 | disposition home or self-care (01) ==
LOC: RAD 13:19
PROVIDERS: PCP Nurse Practitioner; Visit Provider Obstetrics & Gynecology
DX: N94.12 Deep dyspareunia (principal); R10.2 Pelvic and perineal pain
CPT/HCPCS: 76830

== ENCOUNTER 2024-04-27 08:24 | Emergency (ER) | payer OTHER, SELFPAY ==
[2024-04-27 08:24] VITALS: BP 117/79; PULSE 89; RESP 14; TEMP 36.7; O2SAT 99; BMI 30.2
--- NOTE | 2024-04-27 08:48 | ED_ITS ---
Discharge Plan Disposition Patient Disposition: Home, Self-Care Condition: Good Prescriptions Prescriptions: New ketorolac 10 mg tablet 10 mg PO Q8H Qty: 15 0RF Rx Instructions: maximum total duration of 5 days from all oral, intranasal, or parenteral formulations cyclobenzaprine 10 mg Tablet 10 mg PO BID PRN (Reason: Muscle Spasm) Qty: 20 0RF No Action famotidine 20 mg tablet 20 mg PO DAILY Qty: 90 1RF levothyroxine 100 mcg tablet See Rx Instructions .ROUTE .COMPLEX Qty: 90 2RF Dose Instruction: TAKE ONE TABLET BY MOUTH EVERY DAY FOR thyroid Rx Instructions: TAKE ONE TABLET BY MOUTH EVERY DAY FOR thyroid montelukast 10 mg tablet See Rx Instructions .ROUTE .COMPLEX Qty: 90 2RF Dose Instruction: TAKE ONE TABLET BY MOUTH EVERY EVENING Rx Instructions: TAKE ONE TABLET BY MOUTH EVERY EVENING omeprazole 40 mg capsule,delayed release(DR/EC) See Rx Instructions .ROUTE .COMPLEX Qty: 90 2RF Dose Instruction: TAKE ONE CAPSULE BY MOUTH EVERY DAY FOR stomach Rx Instructions: TAKE ONE CAPSULE BY MOUTH EVERY DAY FOR stomach bupropion HCl [Wellbutrin XL] 150 mg tablet extended release 24 hr 150 mg PO DAILY Qty: 90 0RF Rx Instructions: take daily with 300mg tablet; dose is 450mg daily epinephrine 0.3 mg/0.3 mL auto-injector 1 mg SQ NEEDED PRN (Reason: Allergic Reaction) Patient Comments: INJECT THE CONTENTS OF 1 AUTO-INJECTOR INTRAMUSCULARLY ONCE NEEDED FOR ANAPHYLAXIS REACTION -may REPEAT in 5 TO 15 minutes if needed - call 911 AFTER USE - cholecalciferol (vitamin D3) 1,250 mcg (50,000 unit) capsule PO WEEKLY promethazine 25 mg tablet 25 mg PO PRN ondansetron HCl 4 mg tablet 4 mg PO PRN tizanidine 4 mg tablet 4 mg PO PRN etonogestrel-ethinyl estradiol [NuvaRing] 0.12-0.015 mg/24 hr ring 1 vag ring vaginal Q4W Qty: 3 3RF Rx Instructions: leave in place for 3 weeks of a 4-week cycle Nurtec ODT 75 mg tablet,disintegrating 75 mg PO Q OTHER DAY PRN (Reason: migraine headache) Qty: 15 0RF gabapentin 100 mg capsule See Rx Instructions .ROUTE .COMPLEX Qty: 180 2RF Dose Instruction: TAKE TWO CAPSULES BY MOUTH THREE TIMES DAILY FOR nerve pain MAY CAUSE DROWSINESS Rx Instructions: TAKE TWO CAPSULES BY MOUTH THREE TIMES DAILY FOR nerve pain MAY CAUSE DROWSINESS gbrfrovxyk-npiwwprahekno-xuav 50-325-40 mg tablet 1 tab PO Q4-6H PRN (Reason: severe migraine) Qty: 10 0RF hydroxyzine HCl 25 mg tablet See Rx Instructions .ROUTE .COMPLEX Qty: 180 0RF Dose Instruction: TAKE ONE TABLET BY MOUTH TWICE DAILY FOR ITCHING Rx Instructions: TAKE ONE TABLET BY MOUTH TWICE DAILY FOR ITCHING lamotrigine 200 mg tablet 200 mg PO HS Qty: 90 0RF bupropion HCl [Wellbutrin XL] 300 mg tablet extended release 24 hr 300 mg PO DAILY Qty: 90 0RF Rx Instructions: take daily with 150mg tablet; dose is 450mg daily buspirone 10 mg tablet See Rx Instructions .ROUTE .COMPLEX Qty: 120 2RF Dose Instruction: TAKE TWO TABLETS BY MOUTH THREE TIMES DAILY FOR ANXIETY Rx Instructions: TAKE TWO TABLETS BY MOUTH THREE TIMES DAILY FOR ANXIETY trazodone 100 mg tablet 200 mg PO HS Qty: 180 1RF lorazepam [Ativan] 1 mg tablet 1 mg PO TIDP PRN (Reason: anxiety) Qty: 90 0RF dextroamphetamine-amphetamine [Adderall XR] 25 mg capsule,extended release 24hr 25 mg PO DAILY Qty: 30 0RF albuterol sulfate 8.5 GM HFA aerosol inhaler 2 puffs inhalation Q6HP PRN (Reason: Shortness Of Breath) 30 Days Qty: 1 5RF Referrals Follow up/Referrals: Sheila Levy APRN [Primary Care Provider] - See instructions Activity Restrictions/Add. Instructions Additional Instructions/Restrictions: Go home and rest. It would be best if you rested tomorrow too. No heavy lifting & No twisting for the next few days. Take the oral medications as directed. The muscle relaxer (cyclobenzaprine--Flexeril) will make you drowsy, so don't drive or operate heavy machinery after taking it. Follow up with your regular doctor. GO TO THE ER FOR ANY WORSENING SYMPTOMS OR CONCERN, ESPECIALLY BOWEL OR BLADDER ISSUES, SADDLE AREA NUMBNESS, FEVER, ETC Clinical Impressions Clinical Impression: Low back pain with sciatica Instructions Patient Instructions: DI for Sciatica, Cyclobenzaprine, Ketorolac, Dexamethasone Injection Print Language Print Language: Serbian Discharge ED Provider: Fabian Padilla [facility] General Stated complaint: lower back pain, hip pain, no accident Time Seen by Provider: 04/27/24 08:48 Related Data Home Medications ?Medication ?Instructions ?Recorded ?Confirmed epinephrine 0.3 mg/0.3 mL 1 mg SQ NEEDED PRN Allergic 05/03/23 04/05/24 injection, auto-injector Reaction cholecalciferol (vitamin D3) 1,250 PO WEEKLY 03/16/24 04/05/24 mcg (50,000 unit) capsule ondansetron HCl 4 mg tablet 4 mg PO PRN 03/16/24 04/05/24 promethazine 25 mg tablet 25 mg PO PRN 03/16/24 04/05/24 tizanidine 4 mg tablet 4 mg PO PRN 03/16/24 04/05/24 Previous Rx's ?Medication ?Instructions ?Recorded albuterol sulfate 90 mcg/actuation 2 puffs inhalation Q6HP PRN 07/14/21 aerosol inhaler Shortness Of Breath 30 days #1 ea famotidine 20 mg tablet 20 mg PO DAILY #90 tabs 09/14/23 levothyroxine 100 mcg tablet See Rx Instructions .Route 09/14/23 .COMPLEX #90 tabs montelukast 10 mg tablet See Rx Instructions .Route 09/14/23 .COMPLEX #90 tabs omeprazole 40 mg capsule,delayed See Rx Instructions .Route 09/14/23 release .COMPLEX #90 caps gabapentin 100 mg capsule See Rx Instructions .Route 09/15/23 .COMPLEX #180 caps bupropion HCl 150 mg 24 hr tablet, 150 mg PO DAILY Depression #90 tabs 09/17/23 extended release (Wellbutrin XL) ujoewniuer-xgfssmdzqjphj-wmhligsf 1 tab PO Q4-6H PRN severe migraine 11/25/23 50 mg-325 mg-40 mg tablet #10 tabs hydroxyzine HCl 25 mg tablet See Rx Instructions .Route 11/25/23 .COMPLEX #180 tabs bupropion HCl 300 mg 24 hr tablet, 300 mg PO DAILY depression #90 02/22/24 extended release (Wellbutrin XL) tabs buspirone 10 mg tablet See Rx Instructions .Route 02/22/24 .COMPLEX #120 tabs lamotrigine 200 mg tablet 200 mg PO HS bipolar #90 tabs 02/22/24 lorazepam 1 mg tablet (Ativan) 1 mg PO TIDP PRN anxiety #90 tabs 02/22/24 trazodone 100 mg tablet 200 mg (2 x 100 mg) PO HS sleep 02/22/24 #180 tabs etonogestrel 0.12 mg-ethinyl 1 vag ring vaginal Q4W #3 ea 03/16/24 estradiol 0.015 mg/24 hr vaginal ring (NuvaRing) dextroamphetamine-amphetamine ER 25 mg PO DAILY #30 caps 04/05/24 25 mg 24hr capsule,extend release (Adderall XR) rimegepant 75 mg disintegrating 75 mg PO Q OTHER DAY PRN migraine 04/05/24 tablet (Nurtec ODT) headache #15 tabs cyclobenzaprine 10 mg tablet 10 mg PO BID PRN Muscle Spasm #20 04/27/24 tabs ketorolac 10 mg tablet 10 mg PO Q8H #15 tabs 04/27/24 Allergies Allergy/AdvReac Type Severity Reaction Status Date / Time oseltamivir (From TAMIFLU) Allergy Unknown NA-NAUSEA/V Verified 04/05/24 08:07 OMITING sumatriptan (From IMITREX) Allergy Unknown NA-HALLUCIN Verified 04/05/24 08:07 ATIONS [id number] Antimigraine Allergy Verified 04/05/24 08:07 [facility] Disclaimer: The information contained in this section may have been updated after the patient was seen, as this information can be updated by other users. Medical History Palpitations Abnormal electrocardiogram [ECG] [EKG] Acute blood loss anemia COVID-19 Generalized anxiety disorder Recurrent major depression resistant to treatment Anxiety and depression Surgical History S/P oophorectomy left S/P exploratory laparotomy Family History Other Family history of cancer Family history of hypertension Social History Smoking Status: Current every day smoker alcohol intake: former substance use type: denies use current occupational status: employed Travel in the last 8 weeks: None number of children: 1 Have you lived/traveled outside [place] in past 30 days?: No Contact w/someone who lives/traveled outside US past 30 days?: No Exposure to someone with infectious disease in past 14 days?: No Do you have a fever (greater than 100.4 F or 38 C)?: No Have you tested positive for COVID-19: No Exposed to someone with COVID-19 in past 14 days?: No Do you have a sore throat?: No Do you have a cough?: No Do you have any weakness?: No Do you have any diarrhea?: No Are you experiencing any unusual bleeding?: No Do you have any muscle aches/pain?: No Do you have any abdominal pain?: No Are you experiencing loss of taste or smell?: No ROS Obtained: Yes All systems reviewed & no additional complaints except as documented Constitutional Constitutional: Denies chills and Denies fever(s) Eyes Eyes: Denies eye discharge ENT Ears, Nose, Mouth, and Throat: Denies dizziness, Denies otalgia, Denies neck pain and Denies sore throat Cardiovascular Cardiovascular: Denies chest pain Respiratory Respiratory: Denies shortness of breath, Denies chest congestion, Denies cough, Denies stridor and Denies wheezing Gastrointestinal Gastrointestingal: Denies nausea or vomiting Musculoskeletal Musculoskeletal: Reports as per HPI, Reports back pain and Denies neck pain Integumentary/Breasts Skin/Breast: Denies rash Neurologic Neurologic: Denies dizziness and Denies paresthesias Allergic/Immunologic Allergic/Immunologic: Denies wheezing Physical Exam General General appearance: alert and in no apparent distress Head Head exam: atraumatic, normocephalic and normal inspection Eye Eye exam: Present normal appearance, PERRL and EOMI ENT ENT exam: Present normal exam, normal oropharynx, mucous membranes moist, TM's normal bilaterally and normal external ear exam Neck Neck exam: Present normal inspection, full ROM and trachea midline; Absent meningismus or lymphadenopathy Chest Chest inspection: Present normal inspection and symmetric chest wall rise; Absent tenderness Respiratory Respiratory exam: Present normal lung sounds bilaterally; Absent respiratory distress Cardiovascular Cardiovascular exam: Present regular rate and normal rhythm; Absent JVD Abdominal Exam Abdominal exam: Present soft and normal bowel sounds; Absent distention, tenderness or guarding Extremities Exam Extremities exam: Present normal inspection, full ROM and normal capillary refill; Absent calf tenderness Back Exam Back exam: Present normal inspection; Absent tenderness Neurological Exam Neurological exam: Present alert and oriented X3 Psychiatric Psychiatric exam: Present normal affect and normal mood Skin Skin exam: Present warm, dry, intact and normal color Lymphatic Lymphatic Findings: no adenopathy Medical Decision Making Medical Records Medical records reviewed: No I reviewed the patient's medical records. Screening: Per USPSTF and CDC recommendations, given the prevalence of disease in our region, it is our hospital?s policy to screen for HIV and viral Hepatitis for all patients aged 18 and over and those with ongoing risk factors. Pito Inquiry Pt receiving controlled substance: No Lab Data Lab results reviewed: Yes I reviewed the patient's lab results. Orders (Tests/Meds): ED MEDICATIONS Generic Name Dose Route Start Last Admin Trade Name Freq PRN Reason Stop Dose Admin Dexamethasone Sodium Phosphate 10 mg 04/27/24 08:42 Dexamethasone 4mg/Ml 1ml Vial IM 04/27/24 08:43 ONCE ONE Ketorolac Tromethamine 60 mg 04/27/24 08:44 Ketorolac 60mg/2ml Vial IM 04/27/24 08:45 ONCE ONE
[2024-04-27] MEDS: DEXAMETHASONE 4MG/ML 1ML VIAL 10 MG IM (08:51)
[2024-04-27] MEDS: KETOROLAC 60MG/2ML VIAL 60 MG IM (08:52)
[2024-04-27 09:09] VITALS: BP 117/79; PULSE 89; RESP 16; TEMP 36.7; O2SAT 99
== END 2024-04-27 09:11 | disposition home or self-care (01) ==
PROVIDERS: Emergency Provider Nurse Practitioner Family; PCP Nurse Practitioner
DX: M54.40 Lumbago with sciatica, unspecified side (principal)
CPT/HCPCS: 99212; G0381; J1100; J1885

== ENCOUNTER 2024-06-19 10:34 | Outpatient (CLI) | payer OTHER, SELFPAY | END 2024-06-19 23:59 | disposition home or self-care (01) | LOC: LAB.DROPOF 10:35 | PROVIDERS: PCP Nurse Practitioner; Visit Provider Nurse Practitioner | DX: R35.0 Frequency of micturition (principal); N39.0 Urinary tract infection, site not specified; B96.20 Unspecified Escherichia coli [E. coli] as the cause of diseases classified elsewhere | CPT/HCPCS: 87086; 87088; 87186 ==

== ENCOUNTER 2024-07-17 08:27 | Outpatient (POV) | payer OTHER, SELFPAY ==
--- NOTE | 2024-07-17 09:09 | A.OFFVIS_ITS ---
HPI Data of Consult Patient: new to practice Consult date: 07/17/24 Requesting Physician: Radha Deshpande APRN Primary Care Provider: Sheila Levy APRN Consult Narrative Reason for consult: Headaches, migraines, neck pain, arm/hand numbness History of present illness: Ms. Flores is a 33 year old female who presents today as a new patient. She is a referral from Dr. Gutierrez's office. Today she rates her pain a 5 out of 10. Patient states that she has had a longstanding history of headaches, migraines and neck pain that is going on for years. Patient states that there was not any specific injury or trauma that initially started these episodes. She states that she has tried all kinds of conservative measures along with medications. Patient states she has tried [id number] Tylenol, ibuprofen and Excedrin along with being prescribed Topamax, Imitrex, Zomig, propranolol, Toradol with varying degrees of improvement or lack thereof. Patient is currently on Fioricet and Nurtec along with gabapentin 200 mg 3 times a day. Patient states that her neck pain has progressively worsened over the last couple of years. Patient states in the past she has had imaging of her neck but the last one would have been in [place]. She states that she does have numbness that does go down into her arms and hands at different times. She states in the past she has had an EMG but does not recall what the findings were. She does state that sometimes a cold shower will help her pain. Patient is stating that she has headaches daily and migraines about every 2 to 3 days. Patient is interested in And may be able to provide. Her Pito has been reviewed and is appropriate. CC: Radha Deshpande APRN [facility] Disclaimer: The information contained in this section may have been updated after the patient was seen, as this information can be updated by other users. Medical History (Updated 07/17/24 @ 09:13 by Radha Deshpande APRN) UTI (urinary tract infection) UTI symptoms Palpitations Abnormal electrocardiogram [ECG] [EKG] Acute blood loss anemia COVID-19 Generalized anxiety disorder Recurrent major depression resistant to treatment Anxiety and depression Surgical History S/P oophorectomy S/P exploratory laparotomy Family History Other Family history of cancer Family history of hypertension Social History Smoking Status: Current every day smoker alcohol intake: former substance use type: denies use current occupational status: employed Travel in the last 8 weeks: None number of children: 1 Review of Systems Review of Systems Review of systems:: pertinent systems reviewed and negative unless documented below Review of systems (narrative): Review of Systems: General: No recent weight changes, no fever, no sleep disturbances Respiratory: No cough, no shortness of air, no recurring pulmonary infections Cardiovascular/peripheral vascular: No chest pain, no palpitations, no edema, no shortness of breath Gastrointestinal: No new onset incontinence, normal bowel movements reported Genitourinary: No new onset incontinence Musculoskeletal: Neck pain, headache, migraine arm numbness tingling Psychiatric: [Normal mood/affect] Neurological: [Denies weakness in extremities], [denies balance issues] Meds Home Medications and Allergies Home Medications ?Medication ?Instructions ?Recorded ?Confirmed ?Type epinephrine 0.3 mg/0.3 mL 1 mg SQ NEEDED PRN Allergic 05/03/23 06/19/24 History injection, auto-injector Reaction famotidine 20 mg tablet 20 mg PO DAILY #90 tabs 09/14/23 06/19/24 Rx levothyroxine 100 mcg tablet See Rx Instructions .Route 09/14/23 06/19/24 Rx .COMPLEX #90 tabs montelukast 10 mg tablet See Rx Instructions .Route 09/14/23 06/19/24 Rx .COMPLEX #90 tabs omeprazole 40 mg capsule,delayed See Rx Instructions .Route 09/14/23 06/19/24 Rx release .COMPLEX #90 caps gabapentin 100 mg capsule See Rx Instructions .Route 09/15/23 06/19/24 Rx .COMPLEX #180 caps bupropion HCl 150 mg 24 hr tablet, 150 mg PO DAILY Depression #90 tabs 09/17/23 06/19/24 Rx extended release (Wellbutrin XL) [id number]-ybmmbbeiqrzff-zrqyhjfq 1 tab PO Q4-6H PRN severe migraine 11/25/23 06/19/24 Rx 50 mg-325 mg-40 mg tablet #10 tabs hydroxyzine HCl 25 mg tablet See Rx Instructions .Route 11/25/23 06/19/24 Rx .COMPLEX #180 tabs bupropion HCl 300 mg 24 hr tablet, 300 mg PO DAILY depression #90 02/22/24 06/19/24 Rx extended release (Wellbutrin XL) tabs buspirone 10 mg tablet See Rx Instructions .Route 02/22/24 06/19/24 Rx .COMPLEX #120 tabs lamotrigine 200 mg tablet 200 mg PO HS bipolar #90 tabs 02/22/24 06/19/24 Rx trazodone 100 mg tablet 200 mg (2 x 100 mg) PO HS sleep 02/22/24 06/19/24 Rx #180 tabs cholecalciferol (vitamin D3) 1,250 PO WEEKLY 03/16/24 06/19/24 History mcg (50,000 unit) capsule etonogestrel 0.12 mg-ethinyl 1 vag ring vaginal Q4W #3 ea 03/16/24 06/19/24 Rx estradiol 0.015 mg/24 hr vaginal ring (NuvaRing) ondansetron HCl 4 mg tablet 4 mg PO PRN 03/16/24 06/19/24 History promethazine 25 mg tablet 25 mg PO PRN 03/16/24 06/19/24 History tizanidine 4 mg tablet 4 mg PO PRN 03/16/24 06/19/24 History rimegepant 75 mg disintegrating 75 mg PO Q OTHER DAY PRN migraine 04/05/2406/19 Rx tablet (Nurtec ODT) headache #15 tabs cyclobenzaprine 10 mg tablet 10 mg PO BID PRN Muscle Spasm #20 04/27/24 06/19/24 Rx tabs ketorolac 10 mg tablet 10 mg PO Q8H #15 tabs 04/27/24 06/19/24 Rx dextroamphetamine-amphetamine ER 25 mg PO DAILY #30 caps 06/08/24 06/19/24 Rx 25 mg 24hr capsule,extend release (Adderall XR) lorazepam 1 mg tablet (Ativan) 1 mg PO TIDP PRN anxiety #90 tabs 06/08/24 06/19/24 Rx cefdinir 300 mg capsule 300 mg PO BID 10 days #20 caps 06/19/24 06/19/24 Rx metronidazole 500 mg tablet 500 mg PO BID 7 days #14 tabs 06/19/24 06/19/24 Rx phenazopyridine 200 mg tablet 200 mg PO Q8H 2 days #6 tabs 06/19/24 06/19/24 Rx (Pyridium) New Prescriptions to Start Prescriptions: Allergies Allergy/AdvReac Type Severity Reaction Status Date / Time oseltamivir (From TAMIFLU) Allergy Unknown NA-NAUSEA/V Verified 06/19/24 08:31 OMITING sumatriptan (From IMITREX) Allergy Unknown NA-HALLUCIN Verified 06/19/24 08:31 ATIONS [id number] Antimigraine Allergy Verified 06/19/24 08:31 Agents Objective Narrative: Physical Exam: General: Alert and oriented x3, no acute distress, pleasant and cooperative Lungs: Respirations even and unlabored, symmetrical chest expansion Eyes: PERRL Musculoskeletal: Flexion and extension of cervical [spine] somewhat guarded secondary to pain,point tenderness along left cervical paraspinous, left trapezius Neurological: Speech clear, no gross sensory deficit Assessment and Plan *Assessment and plan (1) Episodic migraine: Status: Chronic Category: Medical Code(s): G43.909 - Migraine, unspecified, not intractable, without status migrainosus (2) Neck pain: Status: Acute Category: Medical Code(s): M54.2 - Cervicalgia (3) Chronic headaches: Status: Chronic Category: Medical Code(s): R51.9 - Headache, unspecified; G89.29 - Other chronic pain (4) Cervical radiculopathy: Status: Acute Category: Medical Code(s): M54.12 - Radiculopathy, cervical region Plan I will order the patient a compounded cream. I did discuss with patient that she may benefit from several interventions including Botox for migraines, cervical epidurals and trigger points. Risk and benefits of these procedures were explained to the patient and she would like to proceed forward with this options. We will order first the Botox. Patient will be ordered a compounded cream. Patient agrees with this plan of care. I will also go ahead and get the ball rolling for x-ray imaging of her cervical spine with the plan to progress forward with a advanced imaging of MRI future. Patient will be scheduled for Botox for migraines. Patient has been instructed to contact the clinic with any concerns before the next appointment. Dr. Ford has reviewed this note and agrees with this plan of care. This note was dictated using voice recognition software and make contain errors or omissions. All injections are used with Lidocaine, Bupivacaine and Depo Medrol. Occasionally urine drug screen is needed to verify patient's compliance with our office pain contract. This is ordered based off specific treatments related to chronic pain with the potential to abuse certain medications.
--- NOTE | 2024-07-17 09:17 | XR_ITS ---
FINAL REPORT CLINICAL HISTORY: neck pain FINDINGS: AP, lateral and odontoid views of the cervical spine were obtained. There is no prior exam for comparison. There is no acute fracture or malalignment. Very mild anterolisthesis of C4 on C5 and C5 on C6 is likely degenerative. Mild multilevel degenerative disc disease is noted. The precervical soft tissues are normal. IMPRESSION: Mild degenerative changes without acute osseous abnormality of the cervical spine. Reviewed, Interpreted and Dictated by Inés Garcia MD Transcribed by Dian Rodriguez Authenticated and [facility]
[2024-07-17 09:45] VITALS: BP 132/77; PULSE 99; RESP 18; O2SAT 97; BMI 29.2
== END 2024-07-17 23:59 | disposition home or self-care (01) ==
PROVIDERS: PCP Nurse Practitioner; Visit Provider Nurse Practitioner Family
DX: M54.2 Cervicalgia (principal); G43.909 Migraine, unspecified, not intractable, without status migrainosus; G89.29 Other chronic pain; M54.12 Radiculopathy, cervical region; F17.200 Nicotine dependence, unspecified, uncomplicated; Z79.899 Other long term (current) drug therapy
CPT/HCPCS: 72040; 99202; G0463

== ENCOUNTER 2024-07-28 15:05 | Day surgery (SDC) | payer OTHER, SELFPAY ==
[2024-07-28 15:10] VITALS: BP 121/70; PULSE 96; RESP 18; O2SAT 100; BMI 29.2
--- NOTE | 2024-07-28 15:29 | EXP.HP ---
History of Present Illness *Admission Date: 07/28/24 *Reason for visit:: Botox for migraines; chronic migraines *History of present illness: Chronic migraines [facility] Disclaimer: The information contained in this section may have been updated after the patient was seen, as this information can be updated by other users. Medical History UTI (urinary tract infection) UTI symptoms Palpitations Abnormal electrocardiogram [ECG] [EKG] Acute blood loss anemia COVID-19 Generalized anxiety disorder Recurrent major depression resistant to treatment Anxiety and depression Surgical History S/P oophorectomy S/P exploratory laparotomy Family History Other Family history of cancer Family history of hypertension Social History (Updated 07/17/24 @ 09:48 by Tina Pa RN) Smoking Status: Current every day smoker alcohol intake: former substance use type: denies use current occupational status: employed Travel in the last 8 weeks?: None number of children: 1 Have you lived/traveled outside [place] in past 30 days?: No Contact w/someone who lives/traveled outside US past 30 days?: No Exposure to someone with infectious disease in past 14 days?: No Do you have a fever (greater than 100.4 F or 38 C)?: No Have you tested positive for COVID-19?: No Exposed to someone with COVID-19 in past 14 days?: No Do you have a sore throat?: No Do you have a cough?: No Do you have any weakness?: No Are you experiencing any nausea/vomitting?: No Do you have any diarrhea?: No Are you experiencing any unusual bleeding?: No Do you have any muscle aches/pain?: No Do you have any abdominal pain?: No Are you experiencing loss of taste or smell?: No Other Medical History Have you received the Flu Vaccine for this season: Yes Have you received the Pneumonia Vaccine: No Review of Systems Review of Systems Review of systems:: pertinent systems reviewed and negative unless documented below Review of systems (narrative): Review of Systems: General: No recent weight changes, no fever, no sleep disturbances Respiratory: No cough, no shortness of air, no recurring pulmonary infections Cardiovascular/peripheral vascular: No chest pain, no palpitations, no edema, no shortness of breath Gastrointestinal: No new onset incontinence, normal bowel movements reported Genitourinary: No new onset incontinence Musculoskeletal: Chronic headache/migraines Psychiatric: [Normal mood/affect] Neurological: [Denies weakness in extremities], [denies balance issues] Meds Home Medications and Allergies Home Medications ?Medication ?Instructions ?Recorded ?Confirmed ?Type epinephrine 0.3 mg/0.3 mL 1 mg SQ NEEDED PRN Allergic 05/03/23 07/17/24 History injection, auto-injector Reaction famotidine 20 mg tablet 20 mg PO DAILY #90 tabs 09/14/23 07/17/24 Rx levothyroxine 100 mcg tablet See Rx Instructions .Route 09/14/23 07/17/24 Rx .COMPLEX #90 tabs montelukast 10 mg tablet See Rx Instructions .Route 09/14/23 07/17/24 Rx .COMPLEX #90 tabs omeprazole 40 mg capsule,delayed See Rx Instructions .Route 09/14/23 07/17/24 Rx release .COMPLEX #90 caps gabapentin 100 mg capsule See Rx Instructions .Route 09/15/23 07/17/24 Rx .COMPLEX #180 caps bupropion HCl 150 mg 24 hr tablet, 150 mg PO DAILY Depression #90 tabs 09/17/23 07/17/24 Rx extended release (Wellbutrin XL) wsvfcmqgyh-oyietkklxzifq-oiktyiww 1 tab PO Q4-6H PRN severe migraine 11/25/23 07/17/24 Rx 50 mg-325 mg-40 mg tablet #10 tabs hydroxyzine HCl 25 mg tablet See Rx Instructions .Route 11/25/23 07/17/24 Rx .COMPLEX #180 tabs trazodone 100 mg tablet 200 mg (2 x 100 mg) PO HS sleep 02/22/24 07/17/24 Rx #180 tabs cholecalciferol (vitamin D3) 1,250 1,250 mcg PO WEEKLY SUPPLIMENT 03/16/24 07/17/24 History mcg (50,000 unit) capsule etonogestrel 0.12 mg-ethinyl 1 vag ring vaginal Q4W #3 ea 03/16/24 07/17/24 Rx estradiol 0.015 mg/24 hr vaginal ring (NuvaRing) tizanidine 4 mg tablet 4 mg PO DIRECTED PRN Pain 03/16/24 07/17/24 History rimegepant 75 mg disintegrating 75 mg PO Q OTHER DAY PRN migraine 04/05/24 07/17/24 Rx tablet (Nurtec ODT) headache #15 tabs cyclobenzaprine 10 mg tablet 10 mg PO BID PRN Muscle Spasm #20 04/27/24 07/17/24 Rx tabs ketorolac 10 mg tablet 10 mg PO Q8H #15 tabs 04/27/24 07/17/24 Rx lorazepam 1 mg tablet (Ativan) 1 mg PO TIDP PRN anxiety #90 tabs 06/08/24 07/17/24 Rx metronidazole 500 mg tablet 500 mg PO BID 7 days #14 tabs 06/19/24 07/17/24 Rx phenazopyridine 200 mg tablet 200 mg PO Q8H 2 days #6 tabs 06/19/24 07/17/24 Rx (Pyridium) bupropion HCl 300 mg 24 hr tablet, 300 mg PO DAILY depression #90 07/18/24 Rx extended release (Wellbutrin XL) tabs buspirone 10 mg tablet See Rx Instructions .Route 07/18/24 Rx .COMPLEX #120 tabs dextroamphetamine-amphetamine ER 25 mg PO DAILY #30 caps 07/18/24 Rx 25 mg 24hr capsule,extend release (Adderall XR) lamotrigine 200 mg tablet 200 mg PO HS bipolar #90 tabs 07/18/24 Rx New Prescriptions to Start Prescriptions: Allergies Allergy/AdvReac Type Severity Reaction Status Date / Time oseltamivir (From TAMIFLU) Allergy Unknown NA-NAUSEA/V Verified 06/19/24 08:31 OMITING sumatriptan (From IMITREX) Allergy Unknown NA-HALLUCIN Verified 06/19/24 08:31 ATIONS [id number] Antimigraine Allergy Verified 06/19/24 08:31 Agents Exam Constitutional Constitutional: no acute distress *Routine HEENT Exam Head: Present normocephalic and atraumatic Eye: Present PERRL ENT: Present mucous membranes moist *Routine Neck Exam Neck: Present supple *Routine Respiratory Exam Respiratory: Present CTA bilaterally *Routine Cardiovascular Exam Cardiovascular: Present RRR *Routine Abdominal Exam Abdominal: Present soft *Routine Rectal Exam Rectal:: deferred *Routine Genitalia Exam Genitalia:: normal female *Routine Extremities Exam Extremities: Present full ROM and normal capillary refill Routine Back/Spine/Pelvis Exam Back/Spine: Present full ROM *Routine Skin Exam Skin: Present intact, dry and warm *Routine Neurological Exam Neurological: Present alert and oriented X3 Routine Psychiatric Exam Psychiatric: Present normal affect and normal thought process Assessment and Plan *Assessment and plan (1) Cervical radiculopathy: Status: Acute Category: Medical Code(s): M54.12 - Radiculopathy, cervical region (2) Neck pain: Status: Acute Category: Medical Code(s): M54.2 - Cervicalgia (3) Episodic migraine: Status: Chronic Category: Medical Code(s): G43.909 - Migraine, unspecified, not intractable, without status migrainosus Plan Patient has been instructed to contact the clinic with any concerns before the next appointment. Dr. Ford has reviewed this note and agrees with this plan of care. This note was dictated using voice recognition software and make contain errors or omissions. All injections are used with Lidocaine, Bupivacaine and dexamethasone. Occasionally urine drug screen is needed to verify patient's compliance with our office pain contract. This is ordered based off specific treatments related to chronic pain with the potential to abuse certain medications.
--- NOTE | 2024-07-28 15:32 | P.PCN_ITS ---
Procedure Date: 07/28/24 Time: 16:00 Anesthesiologist:: Radha Deshpande APRN Complications:: None Pre-procedure Diagnosis:: Neck pain, cervical radiculopathy, chronic migraines Post-procedure Diagnosis:: Same Indications for Procedure:: Patient is a pleasant 34-year-old female who presents today for Botox for migraines injections. Today she rates her pain a 4-5 out of 10. Patient states the last 2 weeks her headaches and migraines and neck pain has just been constant and super severe. Patient denies any recent injury or changes. Patient does still continue to have the numbness that does radiate down both her arms and does primarily affects her fingers of the pinky, ring finger and middle finger bilaterally. Patient states that the pain is interfering with her ability perform activities of daily living such as cooking and cleaning. 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 Patient is still taking her current medications however they just have not worked as well in the last couple of weeks. Patient did have a cervical x-ray to review over at today's visit as well. Patient does make mention that about a year and a half ago or longer before she moved she had been diagnosed with osteonecrosis of her right knee. Patient does state that she saw a orthopedic provider here at [facility] and that at that time they were just recommending follow-up imaging in the next 6 months to a year. Patient does state that this has been sometime and she is just forgotten to have this done. Her Pito has been reviewed and is appropriate. Physical Exam: General: Alert and oriented x3, no acute distress, pleasant and cooperative Lungs: Respirations even and unlabored, symmetrical chest expansion Eyes: PERRL Musculoskeletal: Flexion and extension of cervical [spine] somewhat guarded secondary to pain, positive Spurling's test Neurological: Speech clear, no gross sensory deficit Procedure Details:: Patient was taken to the procedure room and placed in a seated position. The area over injection sites was cleansed with alcohol pads. Onabotulinum toxin a at a dilution of 5 units per 0.1 mL (50 units per 1 mL) was injected via a 30- gauge by 0.5 inch disposable needle with the following muscles: 1. Left display director?1 site, 5 units 2. Right core greater?1 site, 5 units 3. Procerus?1 site, 5 units 4. Frontalis?4 sites, 20 units 5. Left temporalis?4 sites, 20 units 6. Right temporalis?4 sites, 20 units 7. Left occipitalis?3 sites, 15 units 8. Right occipitalis?3 sites, 15 units 9. Left cervical paraspinous muscles?2 sites, 10 units 10. Right cervical paraspinous muscles?2 sites, 10 units 11. Left trapezius?3 sites, 15 units 12. Right trapezius?3 sites, 15 units Plan and Disposition:: Patient tolerated the procedure well and was discharged neurologically intact. Patient is experiencing worsening pain in their neck with radiating tingling and burning sensations into their bilateral upper extremities. Patient did have limited range of motion of her cervical spine with a positive Spurling's test. I did discuss with the patient that I do believe they would benefit from a cervical epidural steroid injection. Risk and benefits were discussed with patient and they would like to proceed forward with this plan of care. Patient has tried and failed conservative therapy including oral medications, heat and ice, topicals, at home stretching exercise for longer than 12 weeks. I did review over her x-ray imaging that did show anterolisthesis of C4 on C5 and C5 on C6 with multilevel mild degenerative disc disease. Patient was counseled with certain fingers more affected with the numbness and tingling it would follow the dermatome of C7-T1. I would also proceed forward with ordering MRI without contrast of her cervical spine. We will go ahead and get the ball rolling to do an x-ray of her right knee with the plan to do advanced MRI at a later date due to her history of osteonecrosis. Patient was counseled that we would do the imaging and then send a copy over to orthopedics. Patient acknowledges understanding agrees with this plan of care. Patient did get the compounded cream we ordered at her last visit and does state that it did seem to help. Patient will be scheduled for a KEON C7-T1 under fluoroscopy. Patient denies any blood thinners. Patient has been instructed to contact the clinic with any concerns before the next appointment. Dr. Ford has reviewed this note and agrees with this plan of care. This note was dictated using voice recognition software and make contain errors or omissions. All injections are used with Lidocaine, Bupivacaine and dexamethasone. Occasionally urine drug screen is needed to verify patient's compliance with our office pain contract. This is ordered based off specific treatments related to chronic pain with the potential to abuse certain medications.
[2024-07-28] MEDS: BOTULINUM TOXIN TYPE A 100 UNIT/ML 155 UNIT IM (15:37)
[2024-07-28] MEDS: SODIUM CHLORIDE 0.9% 10ML VIAL 20 ML IV (15:38)
[2024-07-28 15:39] VITALS: BP 107/69; PULSE 95; RESP 18; O2SAT 98
[2024-07-28 15:43] VITALS: BP 107/69; PULSE 95; RESP 18; O2SAT 98
[2024-07-28 16:11] VITALS: BP 107/59; PULSE 95; RESP 16; O2SAT 98
== END 2024-07-28 16:18 | disposition home or self-care (01) ==
PROVIDERS: PCP Nurse Practitioner; Visit Provider Nurse Practitioner Family
DX: M54.12 Radiculopathy, cervical region (principal); M54.2 Cervicalgia; G43.909 Migraine, unspecified, not intractable, without status migrainosus; M25.561 Pain in right knee; Z73.89 Other problems related to life management difficulty
CPT/HCPCS: 20553; 99212; 99221; G0463; J0585

== ENCOUNTER 2024-08-22 10:58 | Day surgery (SDC) | payer OTHER, SELFPAY ==
[2024-08-22 11:03] VITALS: BP 104/68; PULSE 89; RESP 16; TEMP 36.5; O2SAT 100; BMI 29.2
[2024-08-22 11:14] VITALS: BP 118/73; PULSE 83; RESP 18; O2SAT 98
[2024-08-22] MEDS: DEXAMETHASONE 10MG/ML 1ML VIAL 10 MG (11:14)
--- NOTE | 2024-08-22 11:16 | P.PCN_ITS ---
Procedure Date: 08/22/24 Time: 11:00 Anesthesiologist:: Sherwin Pantoja CRNA Complications:: None Pre-procedure Diagnosis:: Degenerative disc cervical spine multiple levels. Cervical radiculopathy. Post-procedure Diagnosis:: Same. Indications for Procedure:: Patient is a very pleasant 34-year-old female comes our clinic today for cervical epidural steroid injection. Patient describes posterior cervical neck pain as constant, dull, aching. She also reports bilateral arm radicular sympto ms. Chronic headaches. She has had multiple Botox shots in efforts to help with headaches. This has been moderately helpful. She rates her pain 7/10. Procedure Details:: Procedure:Cervical epidural steroid injection Informed consent was obtained and the risks and benefits of the procedure were explained to the patient. The patient was taken to the procedure room and noninvasive monitors placed, including noninvasive blood pressure cuff and pulse oximeter. The neck was prepped using Chloraprep as a cleansing solution. The C6- C7 interspace was viewed using fluroscopy. The skin and subcutaneous tissues were anesthetized using lidocaine 1.5% and a 25-gauge needle. After this an 18- gauge Touhy epidural needle was placed into the C6-C7 interspace under fluroscopy guidance and advanced using loss of resistance to air until the epidural space was encountered. After confirmation of needle placement in the epidural space using contrast dye, a solution containing normal saline, 2 mL and Depo-Medrol 80 mg was incrementally injected into the cervical epidural space.~ The patient tolerated the procedure well with no complications. The patient was observed in the Pain Clinic and then discharged home neurologically intact. Plan and Disposition:: Patient was discharged without incident.
[2024-08-22 11:17] VITALS: BP 118/73; PULSE 83; RESP 18; O2SAT 98
[2024-08-22] MEDS: IOPAMIDOL-200 (41%); 20ML VIAL 20 ML IV (11:19)
[2024-08-22 11:27] VITALS: BP 105/65; PULSE 81; RESP 16; O2SAT 99
== END 2024-08-22 11:27 | disposition home or self-care (01) ==
PROVIDERS: PCP Nurse Practitioner; Visit Provider Nurse Anesthetist, Certified Registered
DX: M50.30 Other cervical disc degeneration, unspecified cervical region (principal); M54.12 Radiculopathy, cervical region
CPT/HCPCS: 62321; J1100; Q9966

== ENCOUNTER 2024-08-28 15:31 | Outpatient (CLI) | payer OTHER, SELFPAY ==
--- NOTE | 2024-08-28 15:34 | MR_ITS ---
PROCEDURE INFORMATION: Exam: MR Cervical Spine Without Contrast Exam date and time: 08/28/2024 3:59 PM Age: 34 years old Clinical indication: Neck pain with bilateral tingling , numbness and pain down arms; Additional info: Neck pain/cervical radiculpathy TECHNIQUE: Imaging protocol: Magnetic resonance imaging of the cervical spine without contrast. COMPARISON: CR XR CERVICAL SPINE 3V 07/17/2024 9:20 AM FINDINGS: Images are mildly motion degraded. Bones/joints: Straightening of the cervical lordosis. No acute fracture seen. A C4 hemangioma. Spinal cord: Normal signal. No cord compression. Disc desiccation with mild spondylosis at C3-C4 and C4-C5. There are small endplate Schmorl's nodes. Elsewhere, the intervertebral disc heights are preserved. C2-C3: No stenoses. C3-C4: The central spinal canal is patent. Uncovertebral and facet arthropathy causing mild bilateral neural foraminal stenoses. C4-C5: Mild disc bulge. A 2 mm central disc protrusion. The central spinal canal remains patent. Uncovertebral and facet arthropathy causing mild left and no significant right neural foraminal stenoses. C5-C6: No significant disc bulge or herniation. No severe spinal canal stenosis. No significant neural foraminal narrowing. C6-C7: Mild disc bulge. No stenoses. C7-T1: No significant disc bulge or herniation. No severe spinal canal stenosis. No significant neural foraminal narrowing. Soft tissues: Unremarkable. Vasculature: Expected flow voids in the vertebral arteries. IMPRESSION: No high-grade stenoses.
== END 2024-08-28 23:59 | disposition home or self-care (01) ==
LOC: RAD 15:31
PROVIDERS: PCP Nurse Practitioner; Visit Provider Nurse Practitioner Family
DX: M54.12 Radiculopathy, cervical region (principal)
CPT/HCPCS: 72141

== ENCOUNTER 2024-09-13 15:26 | Outpatient (POV) | payer OTHER, SELFPAY ==
--- NOTE | 2024-09-13 15:27 | A.OFFVIS_ITS ---
[facility] Disclaimer: The information contained in this section may have been updated after the patient was seen, as this information can be updated by other users. Medical History UTI (urinary tract infection) UTI symptoms Palpitations Abnormal electrocardiogram [ECG] [EKG] Acute blood loss anemia COVID-19 Generalized anxiety disorder Recurrent major depression resistant to treatment Anxiety and depression Surgical History S/P oophorectomy S/P exploratory laparotomy Family History Other Family history of cancer Family history of hypertension Social History Smoking Status: Current every day smoker alcohol intake: former substance use type: denies use current occupational status: other Travel in the last 8 weeks?: None number of children: 1 PM Subjective & Objective Subjective Subjective:: Patient is a pleasant 34-year-old female who presents today for follow-up of her cervical epidural steroid injection C6-C7 on 08/22/2024 and Botox injections on 07/28/2024. Patient rates her pain today a 6 out of 10. Patient denies any new falls or injuries. She does state that she would say at least 50 to 60% improvement with the cervical epidural and felt like it did help significantly on the tingling sensation she was having into her upper extremities. Patient states it has not been as bothersome since having that injection. Patient does also state it did seem to help in and around the injection site and going below into her neck however she feels like she still has more pain that is higher up. Patient does state that the Botox made a significant difference of at least 75 to 80% improvement and felt like it really did keep down that headaches and migraines. Patient states that this combination does seem to work well for her. Patient is prescribed compounded cream from our office. She does state that it seems to help some however she does have some difficulty applying it to certain places by herself. Patient does make mention today that she is having more pain in her right knee. Her Pito has been reviewed and is appropriate. Review of Systems: General: No recent weight changes, no fever, no sleep disturbances Respiratory: No cough, no shortness of air, no recurring pulmonary infections Cardiovascular/peripheral vascular: No chest pain, no palpitations, no edema, no shortness of breath Gastrointestinal: No new onset incontinence, normal bowel movements reported Genitourinary: No new onset incontinence Musculoskeletal: Right knee pain, neck pain Psychiatric: [Normal mood/affect] Neurological: [Denies weakness in extremities], [denies balance issues] Pain at rest (0-10 scale): 6 Objective Objective:: Physical Exam: General: Alert and oriented x3, no acute distress, pleasant and cooperative Lungs: Respirations even and unlabored, symmetrical chest expansion Eyes: PERRL Musculoskeletal: Flexion and extension of right knee somewhat guarded secondary to pain, [antalgic gait noted] Neurological: Speech clear, no gross sensory deficit Has patient had previous pain injection?: Yes Percent improvement in pain since last injection: 50 to 60% improvement epidural; 75 to 80% Botox Conservative treatment options previously tried: Home exercise plan Length of treatment: Longer than 12 weeks Meds Home Medications and Allergies Home Medications ?Medication ?Instructions ?Recorded ?Confirmed ?Type epinephrine 0.3 mg/0.3 mL 1 mg SQ NEEDED PRN Allerg ic 05/03/23 09/13/24 History injection, auto-injector Reaction famotidine 20 mg tablet 20 mg PO DAILY #90 tabs 08/2709/13/24 Rx levothyroxine 100 mcg tablet See Rx Instructions .Rout e 09/14/23 09/13/24 Rx .COMPLEX #90 tabs montelukast 10 mg tablet See Rx Instructions .Route 0 09/14/23 09/13/24 Rx .COMPLEX #90 tabs omeprazole 40 mg capsule,delayed See Rx Instructions . Route 09/14/23 09/13/24 Rx release .COMPLEX #90 caps gabapentin 100 mg capsule See Rx Instructions .Route 0 09/15/23 09/13/24 Rx .COMPLEX #180 caps bupropion HCl 150 mg 24 hr tablet, 150 mg PO DAILY Dep ression #90 tabs 09/17/23 09/13/24 Rx extended release (Wellbutrin XL) ipojwstgdb-skrpylkcxnipx-bhufbwqk 1 tab PO Q4-6H PRN s evere migraine 11/25/23 09/13/24 Rx 50 mg-325 mg-40 mg tablet #10 tabs hydroxyzine HCl 25 mg tablet See Rx Instructions .Rout e 11/25/23 09/13/24 Rx .COMPLEX #180 tabs cholecalciferol (vitamin D3) 1,250 1,250 mcg PO WEEKLY SUPPLIMENT 03/16/24 09/13/24 History mcg (50,000 unit) capsule etonogestrel 0.12 mg-ethinyl 1 vag ring vaginal Q4W #3 ea 03/16/24 09/13/24 Rx estradiol 0.015 mg/24 hr vaginal ring (NuvaRing) tizanidine 4 mg tablet 4 mg PO DIRECTED PRN Pain 03/16/24 09/13/24 History rimegepant 75 mg disintegrating 75 mg PO Q OTHER DAY P RN migraine 04/05/24 0 09/13/24 Rx tablet (Nurtec ODT) headache #15 tabs cyclobenzaprine 10 mg tablet 10 mg PO BID PRN Muscle S pasm #20 04/27/24 09/13/24 Rx tabs ketorolac 10 mg tablet 10 mg PO Q8H #15 tabs 09/13/24 Rx lorazepam 1 mg tablet (Ativan) 1 mg PO TIDP PRN anxiet y #90 tabs 06/08/24 09/13/24 Rx metronidazole 500 mg tablet 500 mg PO BID 7 days #14 t abs 06/19/24 09/13/24 Rx phenazopyridine 200 mg tablet 200 mg PO Q8H 2 days #6 tabs 06/19/24 09/13/24 Rx (Pyridium) bupropion HCl 300 mg 24 hr tablet, 300 mg PO DAILY dep ression #90 07/18/24 09/13/24 Rx extended release (Wellbutrin XL) tabs buspirone 10 mg tablet See Rx Instructions .Route 0 07/18/24 09/13/24 Rx .COMPLEX #120 tabs dextroamphetamine-amphetamine ER 25 mg PO DAILY #30 ca ps 07/18/24 09/13/24 Rx 25 mg 24hr capsule,extend release (Adderall XR) lamotrigine 200 mg tablet 200 mg PO HS bipolar #90 tab s 07/18/24 09/13/24 Rx trazodone 100 mg tablet 200 mg (2 x 100 mg) PO HS sl eep 06/05/25 06/18/25 Rx #60 tabs New Prescriptions to Start Prescriptions: Allergies Allergy/AdvReac Type Severity Reaction Status Date / Time oseltamivir (From TAMIFLU) Allergy Unknown NA-NAUSEA/V Verified 06/19/24 08:31 OMITING sumatriptan (From IMITREX) Allergy Unknown NA-HALLUCIN Verified 06/19/24 08:31 ATIONS [id number] Antimigraine Allergy Verified 06/19/24 08:31 Agents Assessment and Plan *Assessment and plan (1) Cervical radiculopathy: Status: Acute Category: Medical Code(s): M54.12 - Radiculopathy, cervical region (2) Neck pain: Status: Acute Category: Medical Code(s): M54.2 - Cervicalgia (3) Chronic headaches: Status: Chronic Category: Medical Code(s): R51.9 - Headache, unspecified; G89.29 - Other chronic pain (4) Knee pain, right: Status: Resolved Category: Medical Code(s): M25.561 - Pain in right knee Plan Patient has had significant improvement between the combination of Botox injections in the cervical epidural. Patient did previously have an x-ray order in for her right knee due to a longstanding history of osteonecrosis that she was diagnosed with last Wednesday. Patient was supposed to get routine imaging about every 6 months. Patient does state that she forgot to go get this x-ray imaging but would really like to proceed forward with this. We will submit for the x-ray imaging as well as MRI without contrast of her right knee to monitor the progression of the osteonecrosis. Patient has tried and failed conservative therapy. We will make sure that a copy of this imaging goes to orthopedics for possible surgical intervention. Patient will return to clinic in 1 month for reevaluation of symptoms and plan of care. I will also order the patient a TENS unit to help with her chronic neck pain. Patient has been instructed to contact the clinic with any concerns before the next appointment. Dr. Ford has reviewed this note and agrees with this plan of care. This note was dictated using voice recognition software and make contain errors or omissions. All injections are used with Lidocaine, Bupivacaine and dexamethasone. Occasionally urine drug screen is needed to verify patient's compliance with our office pain contract. This is ordered based off specific treatments related to chronic pain with the potential to abuse certain medications.
[2024-09-13 15:35] VITALS: BP 125/77; PULSE 110; RESP 14; O2SAT 99; BMI 30.2
== END 2024-09-13 23:59 | disposition home or self-care (01) ==
PROVIDERS: PCP Nurse Practitioner; Visit Provider Nurse Practitioner Family
DX: M54.12 Radiculopathy, cervical region (principal); M25.561 Pain in right knee; R51.9 Headache, unspecified; Z98.890 Other specified postprocedural states
CPT/HCPCS: 99212; G0463

== ENCOUNTER 2024-09-19 07:12 | Outpatient (CLI) | payer OTHER, SELFPAY ==
--- NOTE | 2024-09-19 07:15 | MR_ITS ---
FINAL REPORT TECHNIQUE: Multiplanar MR without contrast CLINICAL HISTORY: RIGHT KNEE PAIN. anterior knee pain x1year FINDINGS: Articular cartilage: No focal defect Marrow signal: Medullary lesion of the distal femoral shaft measuring 23 mm in length by 10 mm in diameter. The appearance is nonspecific but this could represent an enchondroma, small bone infarct, or much less likely osteoblastoma. No evidence of bone contusion or fracture. Joint fluid: Physiologic Menisci: Normal morphology without tear Ligaments: Collateral, cruciate and patellofemoral ligaments intact Tendons: Quadriceps and patellar tendon normal IMPRESSION: No evidence of meniscal or ligamentous injury. Distal femoral bone lesion. Recommended MRI follow-up in 6 months for continued surveillance. Radiographic correlation of the femur is recommended if this has not already been performed. Reviewed, Interpreted and Dictated by Shira Montiel MD Transcribed by Karen Grande Authenticated and [facility]
== END 2024-09-19 23:59 | disposition home or self-care (01) ==
LOC: RAD 07:13
PROVIDERS: PCP Nurse Practitioner; Visit Provider Nurse Practitioner Family
DX: M89.9 Disorder of bone, unspecified (principal); M25.561 Pain in right knee
CPT/HCPCS: 73721

== ENCOUNTER 2024-09-25 15:29 | Outpatient (CLI) | payer OTHER, SELFPAY ==
--- NOTE | 2024-09-25 15:37 | XR_ITS ---
FINAL REPORT CLINICAL HISTORY: PAIN WHEN GRIPPING, NO KNOWN INJURY COMPARISON: None FINDINGS: LEFT WRIST Three views demonstrate no acute fracture or dislocation. The visualized joint spaces are normally aligned. Degenerative cyst formation is noted in the carpal scaphoid measuring up to 6 mm in greatest dimension. The soft tissues are unremarkable. IMPRESSION: Degenerative cyst formation No acute bony abnormality. Reviewed, Interpreted and Dictated by Thierno Young MD Transcribed by Dian Rodriguez Authenticated and [facility]
--- NOTE | 2024-09-25 15:37 | XR_ITS ---
FINAL REPORT CLINICAL HISTORY: PAIN WHEN GRIPING, NO KNOWN INJURY COMPARISON: None FINDINGS: LEFT HAND Three views demonstrate no acute fracture or dislocation. The visualized joint spaces are normally aligned. The soft tissues are unremarkable. IMPRESSION: No acute process. Reviewed, Interpreted and Dictated by Thierno Young MD Transcribed by Dian Rodriguez Authenticated and [facility]
== END 2024-09-25 23:59 | disposition home or self-care (01) ==
PROVIDERS: PCP Nurse Practitioner; Visit Provider Nurse Practitioner
DX: M25.832 Other specified joint disorders, left wrist (principal); M79.642 Pain in left hand
CPT/HCPCS: 73110; 73130